=== PATIENT | male | born 1930 | race Caucasian/White ===

== ENCOUNTER 2017-04-15 11:13 | Inpatient (IN) | payer MEDICARE, OTHER ==
--- NOTE | 2017-04-15 11:29 | ED ---
General Adult HPI - General Chief complaint: Chest Pain Stated complaint: CHEST PAIN Time Seen by Provider: 04/15/17 11:23 Source: patient, RN notes reviewed, old records reviewed Mode of arrival: wheelchair Limitations: no limitations - History of Present Illness Initial comments: This is an 86-year-old male to the ER for evaluation. This patient presents to ER for evaluation of chest pain. Chest pain weakness not feeling well. Patient with a weakness and shortness of breath or patient history of heart disease including heart failure and history of heart attack. Patient has no fevers. No cough no congestion no travel history. Patient's chest pain will happen when he awoke this morning, it began to progress throughout the day, O shortness of breath with exertion, inability to activity. No cough congestion again or fever - Related Data Home Medications Medication Instructions Recorded Confirmed Aspirin 81 mg PO DAILY 04/12/14 04/15/17 Finasteride 5 mg PO DAILY 04/12/14 04/15/17 Metoprolol Tartrate [Lopressor] 25 mg PO TID 04/12/14 04/15/17 Pantoprazole Sodium 40 mg PO BID 04/12/14 04/15/17 Hydrochlorothiazide 25 mg PO DAILY 04/15/17 04/15/17 Metoclopramide [Reglan] 10 mg PO BID 04/15/17 04/15/17 Simvastatin [Zocor] 40 mg PO DAILY 04/15/17 04/15/17 Allergies Allergy/AdvReac Type Severity Reaction Status Date / Time No Known Allergies Allergy Verified 04/15/17 12:56 Review of Systems ROS Statement: Those systems with pertinent positive or pertinent negative responses have been documented in the HPI. ROS Other: All systems not noted in ROS Statement are negative. Past Medical History Past Medical History: Heart Failure, GERD/Reflux, Myocardial Infarction ([place]) Additional Past Medical History / Comment(s): arthritis Last Myocardial Infarction Date:: 1988 History of Any Multi-Drug Resistant Organisms: None Reported Past Surgical History: Back Surgery Additional Past Surgical History / Comment(s): pacemaker Past Anesthesia/Blood Transfusion Reactions: No Reported Reaction Past Psychological History: No Psychological Hx Reported Smoking Status: Former smoker Past Alcohol Use History: None Reported Past Drug Use History: None Reported General Exam Limitations: no limitations General appearance: alert, in no apparent distress Head exam: Present: atraumatic, normocephalic, normal inspection Eye exam: Present: normal appearance, PERRL, EOMI. Absent: scleral icterus, conjunctival injection, periorbital swelling ENT exam: Present: normal exam, mucous membranes moist Neck exam: Present: normal inspection. Absent: tenderness, meningismus, lymphadenopathy Respiratory exam: Present: normal lung sounds bilaterally. Absent: respiratory distress, wheezes, rales, rhonchi, stridor Cardiovascular Exam: Present: regular rate, normal rhythm, normal heart sounds. Absent: systolic murmur, diastolic murmur, rubs, gallop, clicks GI/Abdominal exam: Present: soft, normal bowel sounds. Absent: distended, tenderness, guarding, rebound, rigid Extremities exam: Present: normal inspection, full ROM, normal capillary refill. Absent: tenderness, pedal edema, joint swelling, calf tenderness Back exam: Present: normal inspection Neurological exam: Present: alert, oriented X3, CN II-XII intact Psychiatric exam: Present: normal affect, normal mood Skin exam: Present: warm, dry, intact, normal color. Absent: rash Course Vital Signs 04/15/17 04/15/17 04/15/17 11:14 11:55 12:25 Temperature 97.8 F 98.4 F 97.7 F Pulse Rate 66 74 53 L Respiratory 18 17 17 Rate Blood Pressure 116/74 118/63 112/58 O2 Sat by Pulse 93 L 96 98 Oximetry 04/15/17 13:53 Temperature 97.5 F L Pulse Rate 83 Respiratory 16 Rate Blood Pressure 112/60 O2 Sat by Pulse 96 Oximetry - Reevaluation(s) Reevaluation #1: 04/15/17 14:13 At this point patient remains of anterior chest pain EKG Findings - EKG Comments: EKG Findings:: EKG shows sinus rhythm rate of 80, ID [id number], QRS 86, QTc 459 Medical Decision Making - Medical Decision Making 80 formality ER for reevaluation of shortness of breath chest pain, symptoms began this morning worsening intensity. History of heart disease, patient's initial normal EKG, initial normal troponin, patient be admitted for cardiac observation, returning of troponin anticoagulation - Lab Data Result diagrams: 04/15/17 11:48 04/15/17 11:48 Lab Results 04/15/17 04/15/17 04/15/17 Range/Units 11:48 11:48 11:48 WBC 9.6 (3.8-10.6) k/uL RBC 4.77 (4.30-5.90) m/uL Hgb 14.9 (13.0-17.5) gm/dL Hct 43.6 (39.0-53.0) % MCV 91.4 (80.0-100.0) fL MCH 31.3 (25.0-35.0) pg MCHC 34.2 (31.0-37.0) g/dL RDW 14.0 (11.5-15.5) % Plt Count 287 (150-450) k/uL Neutrophils % 84 % Lymphocytes % 7 % Monocytes % 5 % Eosinophils % 2 % Basophils % 0 % Neutrophils # 8.0 H (1.3-7.7) k/uL Lymphocytes # 0.7 L (1.0-4.8) k/uL Monocytes # 0.5 (0-1.0) k/uL Eosinophils # 0.2 (0-0.7) k/uL Basophils # 0.0 (0-0.2) k/uL PT (9.0-12.0) sec INR (<1.1) APTT (22.0-30.0) sec D-Dimer (<0.60) mg/L FEU Sodium 134 L (137-145) mmol/L Potassium 4.3 (3.5-5.1) mmol/L Chloride 101 (98-107) mmol/L Carbon Dioxide 23 (22-30) mmol/L Anion Gap 10 mmol/L BUN 15 (9-20) mg/dL Creatinine 1.10 (0.66-1.25) mg/dL Est GFR (MDRD) Af Amer >60 (>60 ml/min/1.73 sqM) Est GFR (MDRD) Non-Af >60 (>60 ml/min/1.73 sqM) Glucose 104 H (74-99) mg/dL Calcium 9.0 (8.4-10.2) mg/dL Magnesium 1.9 (1.6-2.3) mg/dL Total Bilirubin 0.6 (0.2-1.3) mg/dL AST 28 (17-59) U/L ALT 30 (21-72) U/L Alkaline Phosphatase 55 (38-126) U/L Total Creatine Kinase 73 (55-170) U/L CK-MB (CK-2) 1.7 (0.0-2.4) ng/mL CK-MB (CK-2) Rel Index 2.3 Troponin I <0.012 (0.000-0.034) ng/mL NT-Pro-B Natriuret Pep pg/mL Total Protein 6.5 (6.3-8.2) g/dL Albumin 3.8 (3.5-5.0) g/dL Lipase 113 (23-300) U/L 04/15/17 04/15/17 Range/Units 11:48 11:48 WBC (3.8-10.6) k/uL RBC (4.30-5.90) m/uL Hgb (13.0-17.5) gm/dL Hct (39.0-53.0) % MCV (80.0-100.0) fL MCH (25.0-35.0) pg MCHC (31.0-37.0) g/dL RDW (11.5-15.5) % Plt Count (150-450) k/uL Neutrophils % % Lymphocytes % % Monocytes % % Eosinophils % % Basophils % % Neutrophils # (1.3-7.7) k/uL Lymphocytes # (1.0-4.8) k/uL Monocytes # (0-1.0) k/uL Eosinophils # (0-0.7) k/uL Basophils # (0-0.2) k/uL PT 10.4 (9.0-12.0) sec INR 1.0 (<1.1) APTT 22.4 (22.0-30.0) sec D-Dimer 0.60 H (<0.60) mg/L FEU Sodium (137-145) mmol/L Potassium (3.5-5.1) mmol/L Chloride (98-107) mmol/L Carbon Dioxide (22-30) mmol/L Anion Gap mmol/L BUN (9-20) mg/dL Creatinine (0.66-1.25) mg/dL Est GFR (MDRD) Af Amer (>60 ml/min/1.73 sqM) Est GFR (MDRD) Non-Af (>60 ml/min/1.73 sqM) Glucose (74-99) mg/dL Calcium (8.4-10.2) mg/dL Magnesium (1.6-2.3) mg/dL Total Bilirubin (0.2-1.3) mg/dL AST (17-59) U/L ALT (21-72) U/L Alkaline Phosphatase (38-126) U/L Total Creatine Kinase (55-170) U/L CK-MB (CK-2) (0.0-2.4) ng/mL CK-MB (CK-2) Rel Index Troponin I (0.000-0.034) ng/mL NT-Pro-B Natriuret Pep 556 pg/mL Total Protein (6.3-8.2) g/dL Albumin (3.5-5.0) g/dL Lipase (23-300) U/L - Radiology Data Radiology results: report reviewed (Chest x-ray negative for acute disease, CTA pending), image reviewed Critical Care Time Critical Care Time: Yes Total Critical Care Time: 31 Disposition Clinical Impression: Chest pain Disposition: ADMITTED IP TO THIS [facility] Condition: Undetermined Instructions: Chest Pain (ED) Referrals: Armin Mckeon MD [Primary Care Provider] - 1-2 days
[2017-04-15 12:00] LABS: Basophils % (A) 0 %; CHCM 35.2; Eosinophils # (A) 0.2 k/uL (0-0.7); Eosinophils % (A) 2 %; HCT 43.6 % (39.0-53.0); HDW 2.68; HGB 14.9 gm/dL (13.0-17.5); Luc # (Auto) 0.14; Luc % (Auto) 2; Lymphocytes # (A) 0.7 k/uL (1.0-4.8); Lymphocytes % (A) 7 %; MCH 31.3 pg (25.0-35.0); MCHC 34.2 g/dL (31.0-37.0); MCV 91.4 fL (80.0-100.0); Monocytes # (A) 0.5 k/uL (0-1.0); Monocytes % (A) 5 %; Neutrophils % (A) 84 %; RBC 4.77 m/uL (4.30-5.90); WBC 9.6 k/uL (3.8-10.6); WBC (Perox) 9.56
--- NOTE | 2017-04-15 12:08 | XR ---
EXAMINATION TYPE: XR chest 2V DATE OF EXAM: 04/15/2017 12:05 PM COMPARISON: Chest x-ray April 01, 2012. HISTORY: Shortness of breath and weakness today. TECHNIQUE: Frontal and lateral views of the chest are obtained. FINDINGS: There is chronic parenchymal change without suspicious air space opacity, pleural effusion , or pneumothorax seen. The cardiac silhouette size is mildly enlarged with dual lead pacemaker and atherosclerotic thoracic aorta. The osseous structures are intact. IMPRESSION: Chronic changes and mild cardiomegaly without acute pulmonary process. No significant ch agnes from prior study.
[2017-04-15 12:19] LABS: ALT 30 U/L (21-72); AST 28 U/L (17-59); Alkaline Phosphatase 55 U/L (38-126); Anion Gap 10 mmol/L; Blood Urea Nitrogen 15 mg/dL (9-20); Carbon Dioxide 23 mmol/L (22-30); Chloride 101 mmol/L (98-107); Glucose 104 mg/dL (74-99); Magnesium 1.9 mg/dL (1.6-2.3); Non-African American GFR(MDRD) >60 (>60 ml/min/1.73 sqM); Potassium 4.3 mmol/L (3.5-5.1); Sodium 134 mmol/L (137-145); Total Bilirubin 0.6 mg/dL (0.2-1.3); Total Protein 6.5 g/dL (6.3-8.2)
[2017-04-15 12:22] LABS: Creatine Kinase 73 U/L (55-170)
[2017-04-15 12:35] LABS: Creatine Kinase MB 1.7 ng/mL (0.0-2.4); Troponin I <0.012 ng/mL (0.000-0.034)
[2017-04-15 12:48] LABS: Partial Thromboplastin Time 22.4 sec (22.0-30.0); Prothrombin Time 10.4 sec (9.0-12.0)
[2017-04-15] MEDS ORDERED: RX INFO: IV CONTRAST WAS GIVEN 1 EACH MISC MISCELLANE PRN (13:00)
[2017-04-15] MEDS ORDERED: ASPIRIN 81 MG CHEW PO STA (14:11)
[2017-04-15] MEDS ORDERED: HEPARIN SODIUM,PORCINE 5,000 UNIT/ML 1 ML VIAL IV ONE (14:11)
[2017-04-15] MEDS ORDERED: HEPARIN SODIUM,PORCINE 5,000 UNIT/ML 1 ML VIAL IV PRN (14:11)
--- NOTE | 2017-04-15 14:17 | CT ---
CT CHEST FOR PULMONARY EMBOLISM. EXAMINATION TYPE: CT angio chest DATE OF EXAM: 04/15/2017 1:36 PM INDICATION: Chest pain shortness of breath CT DLP: 588 mGycm, Automated exposure control for dose reduction was used. CONTRAST: Patient injected with 100 mL of Omnipaque 350. COMPARISON: NONE TECHNIQUE: CT of the chest is performed on a spiral scan at 2 mm thick sections. Study is performed with intravenous contrast timed for evaluation for pulmonary embolism. This will limit additional po rtions of the evaluation. 3-D MIP images reconstructed by the technologist are reviewed on the compu ter in the coronal and sagittal planes. FINDINGS: No persistent filling defects are evident to suggest an acute pulmonary embolism. No mediastinal or hilar adenopathy enlarged by CT criteria is evident. The ascending aorta diameter at the level of the main pulmonary artery is 3.2 cm. The main pulmonary artery diameter at the bifur cation is 2.9 cm. Scattered calcified granuloma are present within the right lung. There is a 0.5 cm peripheral calcifi ed granuloma posterior portion superior segment right lower lobe. 0.4 cm calcification is within the posterior medial right upper lobe. Calcification is in the upper left upper lobe measuring 0.5 cm adj acent to the major fissure. Emphysematous changes are present. Small hiatal hernia is present. Limited CT section through the upper abdomen are unremarkable. IMPRESSIONS: 1. No acute pulmonary embolism.
[2017-04-15] MEDS: SODIUM CHLORIDE 0.9% 1,000 ML IV SCH (15:18)
[2017-04-15] MEDS: HEPARIN SODIUM,PORCINE/D5W PMX 25,000 UNIT in DEXTROSE/WATER 1 500ML.BAG IV SCH (15:22)
--- NOTE | 2017-04-15 16:03 | P.HPIM ---
History of Present Illness H&P Date: 04/15/17 Chief Complaint: Weakness, chest tightness, shortness of breath This is an 86-year-old male patient of Dr. 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 Patient states that he was feeling a little sweaty before he was getting out of bed this morning. He had breakfast and thought he would feel better but unfortunately he felt worse after that. He then developed a little tightness in his chest but denies any "chest pain." He was feeling clammy, short of breath and weak. He denies any nausea or vomiting. He denies any palpitations or loss of consciousness. Patient's son brought him into the hospital from home. Troponin was negative. Chest x-ray showed chronic changes and mild cardiomegaly without acute pulmonary process. D -dimer was mildly elevated at 0.6 and CTA of the chest showed no acute pulmonary embolism. Patient was started on heparin drip, full aspirin, nitroglycerin sublingual, consult with cardiology requested and patient placed on the observation unit. Serial troponins and lipid panel have been ordered. Review of Systems All systems: negative Constitutional: Reports fatigue, Reports weakness, Denies chills, Denies fever Eyes: denies blurred vision, denies pain Ears, nose, mouth and throat: Denies headache, Denies sore throat Cardiovascular: Reports chest pain, Reports decreased exercise tolerance, Reports dyspnea on exertion, Denies lightheadedness, Denies palpitations, Denies shortness of breath, Denies syncope Respiratory: Denies cough Gastrointestinal: Denies abdominal pain, Denies diarrhea, Denies nausea, Denies vomiting Musculoskeletal: Denies myalgias Integumentary: Denies pruritus, Denies rash Neurological: Denies numbness, Denies weakness Psychiatric: Denies anxiety, Denies depression Endocrine: Denies fatigue, Denies weight change Past Medical History Past Medical History: Heart Failure, GERD/Reflux, Hyperlipidemia, Hypertension, Myocardial Infarction ([place]), Osteoarthritis ([place]) Additional Past Medical History / Comment(s): Peripheral neuropathy, 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 Ashley Last Myocardial Infarction Date:: 1988 History of Any Multi-Drug Resistant Organisms: None Reported Past Surgical History: Back Surgery Additional Past Surgical History / Comment(s): pacemaker, cardiac stent done at [facility] in 1980s, lumbar surgery 3, bilateral cataract removal and intraocular lens implants, colonoscopies Past Anesthesia/Blood Transfusion Reactions: No Reported Reaction Past Psychological History: No Psychological Hx Reported Smoking Status: Never smoker Past Alcohol Use History: None Reported Additional Past Alcohol Use History / Comment(s): Patient denies any history of smoking. No medical marijuana, marijuana or street drug use. He drinks alcohol on a very rare basis. He lives at home with his Past Drug Use History: None Reported - Past Family History Father Additional Family Medical History / Comment(s): Father at age 87 with history of brain cancer, coronary artery disease, myocardial infarction, pacemaker. Mother Additional Family Medical History / Comment(s): Mother at age 56 in the accident when barn collapsed. Brother(s) Additional Family Medical History / Comment(s): Patient does not have any brothers or sisters. Daughter(s) Additional Family Medical History / Comment(s): Patient has 2 sons and 2 daughters. One daughter has coronary artery disease. Medications and Allergies Home Medications Medication Instructions Recorded Confirmed Type Aspirin 81 mg PO DAILY 04/12/14 04/15/17 History Finasteride 5 mg PO DAILY 04/12/14 04/15/17 History Metoprolol Tartrate [Lopressor] 25 mg PO TID 04/12/14 04/15/17 History Pantoprazole Sodium 40 mg PO BID 04/12/14 04/15/17 History Hydrochlorothiazide 25 mg PO DAILY 04/15/17 04/15/17 History Metoclopramide [Reglan] 10 mg PO BID 04/15/17 04/15/17 History Simvastatin [Zocor] 40 mg PO DAILY 04/15/17 04/15/17 History Allergies Allergy/AdvReac Type Severity Reaction Status Date / Time No Known Allergies Allergy Verified 04/15/17 12:56 Physical Exam Vitals: Vital Signs Temp Pulse Resp BP Pulse Ox 04/15/17 15:15 98.3 F 73 18 113/61 96 04/15/17 13:53 97.5 F L 83 16 112/60 96 04/15/17 12:25 97.7 F 53 L 17 112/58 98 04/15/17 11:55 98.4 F 74 17 118/63 96 04/15/17 11:14 97.8 F 66 18 116/74 93 L Intake and Output 04/15/17 04/15/17 04/15/17 06:59 14:59 22:59 Other: Weight 92.986 kg Patient Weight 04/16/17 06:59 Weight 92.986 kg Gen: This is an 86-year-old male. He is sitting up in the ER stretcher and appears to be in no acute distress. HEENT: Head is atraumatic, normocephalic. Pupils equal, round. Sclerae is anicteric. NECK: Supple. No JVD. No lymphadenopathy. No thyromegaly. LUNGS: Clear to auscultation. No wheezes or rhonchi. No intercostal retractions. HEART: Regular rate and rhythm. No murmur. ABDOMEN: Soft. Bowel sounds are present. No masses. No tenderness. EXTREMITIES: No pedal edema. No calf tenderness. Skin lesion to the bilateral ankles more so on the right which is been chronic and patient follows with Dr. Gauthier. NEUROLOGICAL: Patient is awake, alert and oriented x3. Cranial nerves 2 through 12 are grossly intact. Results CBC & Chem 7: 04/15/17 11:48 04/15/17 11:48 Labs: Abnormal Lab Results - Last 24 Hours (Table) 04/15/17 04/15/17 04/15/17 Range/Units 11:48 11:48 11:48 Neutrophils # 8.0 H (1.3-7.7) k/uL Lymphocytes # 0.7 L (1.0-4.8) k/uL D-Dimer 0.60 H (<0.60) mg/L FEU Sodium 134 L (137-145) mmol/L Glucose 104 H (74-99) mg/dL Thrombosis Risk Factor Assmnt - DVT/VTE Prophylaxis DVT/VTE Prophylaxis: Pharmacologic Prophylaxis ordered Assessment and Plan Plan: 1. Chest pressure with symptoms concerning for coronary artery disease with previous cardiac stent done in the 1980s and myocardial infarction. Patient is currently on heparin drip, aspirin, Lipitor. Cardiology consult. 2. Hypertension. Continue Lopressor 25 mg 3 times daily and hydrochlorothiazide 25 mg daily. 3. Hyperlipidemia. Continue simvastatin or Lipitor. 4. Benign prostatic hypertrophy. Continue finasteride 5 mg daily. 5. Gastroesophageal reflux disease and GI prophylaxis. Continue Protonix. 6. DVT prophylaxis, heparin. Patient will be placed on the observation unit. Discharge plan: Return home. Impression and plan of care have been directed as dictated by the signing physician. Anneliese Rawls nurse practitioner acting as scribe for signing physician.
[2017-04-15 18:22] LABS: Creatine Kinase MB 1.5 ng/mL (0.0-2.4); Troponin I 0.014 ng/mL (0.000-0.034)
[2017-04-15] MEDS: METOCLOPRAMIDE 10 MG TAB PO SCH (21:11)
[2017-04-15] MEDS: METOPROLOL TARTRATE 50 MG TAB PO SCH (21:11)
[2017-04-15] MEDS: PANTOPRAZOLE 40 MG TABLET PO SCH (21:12)
[2017-04-16 01:44] LABS: Creatine Kinase 56 U/L (55-170)
[2017-04-16 01:53] LABS: Creatine Kinase MB 1.4 ng/mL (0.0-2.4); Troponin I <0.012 ng/mL (0.000-0.034)
[2017-04-16] MEDS: SODIUM CHLORIDE 0.9% 1,000 ML IV SCH ×3 (05:13→18:57)
[2017-04-16 05:59] LABS: Mean Platelet Volume 6.6
[2017-04-16 06:17] LABS: Cholesterol 140 mg/dL (<200); HDL Cholesterol 45 mg/dL (40-60); Triglycerides 157 mg/dL (<150)
--- NOTE | 2017-04-16 08:54 | P.PN ---
Progress Note - Text Patient's telemetry strips are reviewed While in the hospital he had chest discomfort and at that time he had ventricular pacing versus six-time beats a minute and then at about 80 beats a minute his symptoms came back when he started ventricular pacing His chest discomfort at home was quite prolonged and will be ordered not to have made any enzymes for such a prolonged discomfort all across the chest No evidence of pulmonary embolism on CT of the chest The intermittency of ventricular pacing explains the ST segment abnormalities, cardiac memory Suggest Ventricular pacing to see if he reproduces symptoms
--- NOTE | 2017-04-16 09:20 | CONS ---
DATE OF CONSULTATION: Mr. Rodriguez is an 86-year-old male patient who presented with severe chest discomfort all across his chest associated with nausea and sweating. The pain lasted for quite a while and since it would not go away he came to the hospital. His first 12-lead ECG shows sinus rhythm with ST segment depression. Later, the pain finally subsided and subsequently came back once again while he was in the hospital. So far, his cardiac enzymes have been normal. He has known coronary artery disease and recently underwent a stress test about a month back with Dr. Solorzano. He recently saw Dr. Solorzano. He had his pacemaker interrogated. REVIEW OF SYSTEMS: No fever, chills or rigors. No cough or expectoration. No nausea, vomiting or diarrhea. No hematuria or dysuria. No strokes or seizures. No skin lesions or musculoskeletal complaints. Past history of coronary artery disease, coronary stenting in the 80s, permanent pacemaker for bradycardia, right carotid artery disease 80% and 70% stenosis on the left side, laryngeal cancer, status post chemotherapy and radiotherapy, dyslipidemia, peripheral neuropathy and hypertension. He also stated that he was dizzy ( ) bed and when he was getting his x-ray done and upon standing he was dizzy. Home medications include aspirin, finasteride, metoprolol, which he has not taken for last couple days. He ran out of this. Hydrochlorothiazide, Reglan and simvastatin. ALLERGIES: No known drug allergies. On examination, he is afebrile, 98.3 degrees Fahrenheit, pulse rate in the 70s. Blood pressure 113/61. On examination, heart sounds are normal. No murmurs, no gallops. Breath sounds are normal. No rhonchi. No crackles. No JVD. No thyromegaly. Abdomen is soft, nontender. Extremities are warm, no edema. The 12-lead ECG shows ST depression concave upwards ST-T changes. This could represent post pacing phenomena since he does have independent RV pacing that is documented on telemetry. He is not on digoxin. His cardiac enzymes are completely normal. His stress test recently was apparently normal, but I do not have the final report, I am awaiting this. PLAN: Continue medications. Continue statins. I will speak with Dr. Solorzano regarding further workup of chest pain.
[2017-04-16] MEDS: METOPROLOL TARTRATE 50 MG TAB PO SCH ×2 (09:56→19:59)
[2017-04-16] MEDS: METOCLOPRAMIDE 10 MG TAB PO SCH ×2 (09:57→20:00)
[2017-04-16] MEDS: PANTOPRAZOLE 40 MG TABLET PO SCH ×2 (09:57→18:17)
[2017-04-16] MEDS: FINASTERIDE 5 MG TAB PO SCH (09:57)
[2017-04-16] MEDS: HYDROCHLOROTHIAZIDE 25 MG TAB PO SCH (09:57)
[2017-04-16] MEDS: ATORVASTATIN 80 MG TAB PO SCH (09:57)
[2017-04-16] MEDS: ASPIRIN 325 MG TAB PO SCH (09:57)
--- NOTE | 2017-04-16 16:29 | P.PN ---
Subjective This is an 86-year-old male patient of Dr. 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 Patient states that he was feeling a little sweaty before he was getting out of bed this morning. He had breakfast and thought he would feel better but unfortunately he felt worse after that. He then developed a little tightness in his chest but denies any "chest pain." He was feeling clammy, short of breath and weak. He denies any nausea or vomiting. He denies any palpitations or loss of consciousness. Patient's son brought him into the hospital from home. Troponin was negative. Chest x-ray showed chronic changes and mild cardiomegaly without acute pulmonary process. D -dimer was mildly elevated at 0.6 and CTA of the chest showed no acute pulmonary embolism. Patient was started on heparin drip, full aspirin, nitroglycerin sublingual, consult with cardiology requested and patient placed on the observation unit. Serial troponins and lipid panel have been ordered. 04/16: Today the patient is feeling better, patient will be seen by [employer] agent for interrogation of his pacemaker as the patient to have some issues with the ventricular pacing, he would be maintained on heparin drip, as the patient may need to go for left heart catheterization next 24 hours. Objective - Vital Signs Vital signs: Vital Signs Temp 97.6 F 04/16/17 15:24 Pulse 62 04/16/17 15:24 Resp 16 04/16/17 15:24 BP 118/58 04/16/17 15:24 Pulse Ox 95 04/16/17 15:24 Intake & Output 04/15/17 04/16/17 04/16/17 18:59 06:59 18:59 Intake Total 346.074 Balance 346.074 Weight 93.2 kg Intake: Intake, IV Titration 346.074 Amount Heparin Sodium,Porcine/ 346.074 D5w Pmx 25,000 unit In Dextrose/Water 1 500ml. bag @ 10.755 UNITS/KG/HR 20 mls/hr IV .Q24H COUNTS INCLUDE 234 BEDS AT THE [facility] Rx #:[id number] Other: # Voids 2 - Constitutional General appearance: Present: average body habitus, no acute distress - EENT Eyes: Present: anicteric sclerae, EOMI, normal appearance. Absent: PERRLA, ptosis, scleral icterus ENT: Present: NA/AT, normal oropharynx. Absent: thrush, tonsillar exudates Ears: bilateral: normal - Neck Neck: Present: normal ROM. Absent: lymphadenopathy, rigidity, stridor, thyromegaly Carotids: bilateral: upstroke normal Thyroid: bilateral: normal size - Respiratory Respiratory: bilateral: diminished, negative: dullness, rales, rhonchi, wheezing , prolonged expiration, prolonged inspiration - Cardiovascular Rhythm: regular Heart sounds: normal: S1, S2 Abnormal Heart Sounds: Present: systolic murmur. Absent: rub (PPM), S3 Gallop, S4 Gallop, click - Gastrointestinal General gastrointestinal: Present: normal bowel sounds, soft. Absent: splenomegaly, tenderness, ventral hernia - Integumentary Integumentary: Present: normal, normal turgor - Neurologic Neurologic: Present: CNII-XII intact, focal deficits (Right foot drop) - Musculoskeletal Musculoskeletal: Present: generalized weakness - Psychiatric Psychiatric: Present: A&O x's 3, appropriate affect, intact judgment & insight - Labs CBC & Chem 7: 04/16/17 05:30 04/15/17 11:48 Labs: Abnormal Lab Results - Last 24 Hours (Table) 04/15/17 04/16/17 04/16/17 Range/Units 20:55 05:30 05:30 APTT 36.7 H 44.2 H (22.0-30.0) sec Triglycerides 157 H (<150) mg/dL 04/16/17 Range/Units 14:12 APTT 41.0 H (22.0-30.0) sec Triglycerides (<150) mg/dL Assessment and Plan Plan: Assessment and Plan Plan: 1. Chest pressure with symptoms concerning for coronary artery disease with previous cardiac stent done in the 1980s and myocardial infarction. Patient is currently on heparin drip, aspirin, Lipitor. Cardiology consult, there is a possible issues with ventricular pacing and subsequently the patient would be seen by [employer] personnel. He may still have to go for left heart catheterization if needed. 2. Hypertension. Continue Lopressor 25 mg 3 times daily and hydrochlorothiazide 25 mg daily. 3. Hyperlipidemia. Continue simvastatin or Lipitor. 4. Benign prostatic hypertrophy. Continue finasteride 5 mg daily. 5. Gastroesophageal reflux disease and GI prophylaxis. Continue Protonix. 6. DVT prophylaxis, heparin. 7. Home in 24 hours.
[2017-04-16] MEDS: HEPARIN SODIUM,PORCINE/D5W PMX 25,000 UNIT in DEXTROSE/WATER 1 500ML.BAG IV SCH (18:14)
[2017-04-17] MEDS: SODIUM CHLORIDE 0.9% 1,000 ML IV SCH ×3 (05:27→22:58)
[2017-04-17] MEDS: PANTOPRAZOLE 40 MG TABLET PO SCH ×2 (06:41→17:09)
[2017-04-17 07:00] LABS: Anion Gap 8 mmol/L; Blood Urea Nitrogen 16 mg/dL (9-20); Calcium 8.4 mg/dL (8.4-10.2); Carbon Dioxide 24 mmol/L (22-30); Chloride 99 mmol/L (98-107); Glucose 96 mg/dL (74-99); Non-African American GFR(MDRD) >60 (>60 ml/min/1.73 sqM); Sodium 131 mmol/L (137-145)
[2017-04-17 07:17] LABS: Mean Platelet Volume 6.6
[2017-04-17] MEDS: NITROGLYCERIN SL TABS 0.4 MG TAB SUBLINGUAL PRN ×2 (08:43→08:48)
[2017-04-17] MEDS: ATORVASTATIN 80 MG TAB PO SCH (09:03)
[2017-04-17] MEDS: METOPROLOL TARTRATE 50 MG TAB PO SCH ×2 (09:03→20:30)
[2017-04-17] MEDS: ASPIRIN 325 MG TAB PO SCH (09:03)
[2017-04-17] MEDS: FINASTERIDE 5 MG TAB PO SCH (09:03)
[2017-04-17] MEDS: METOCLOPRAMIDE 10 MG TAB PO SCH ×2 (09:03→20:30)
[2017-04-17] MEDS: HEPARIN SODIUM,PORCINE/D5W PMX 25,000 UNIT in DEXTROSE/WATER 1 500ML.BAG IV SCH (10:24)
[2017-04-17] MEDS: HYDROCHLOROTHIAZIDE 25 MG TAB PO SCH (10:24)
--- NOTE | 2017-04-17 13:19 | P.PN ---
Subjective This is an 86-year-old male patient of Dr. 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 Patient states that he was feeling a little sweaty before he was getting out of bed this morning. He had breakfast and thought he would feel better but unfortunately he felt worse after that. He then developed a little tightness in his chest but denies any "chest pain." He was feeling clammy, short of breath and weak. He denies any nausea or vomiting. He denies any palpitations or loss of consciousness. Patient's son brought him into the hospital from home. Troponin was negative. Chest x-ray showed chronic changes and mild cardiomegaly without acute pulmonary process. D -dimer was mildly elevated at 0.6 and CTA of the chest showed no acute pulmonary embolism. Patient was started on heparin drip, full aspirin, nitroglycerin sublingual, consult with cardiology requested and patient placed on the observation unit. Serial troponins and lipid panel have been ordered. 04/16: Today the patient is feeling better, patient will be seen by [employer] agent for interrogation of his pacemaker as the patient to have some issues with the ventricular pacing, he would be maintained on heparin drip, as the patient may need to go for left heart catheterization next 24 hours. 04/17: Patient states that he had an episode of chest tightness during the night which has continued this morning. He did receive 2 nitroglycerin and his blood pressure did drop. He is on heparin drip right now. Awaiting decision from cardiology regarding heart catheterization Objective - Vital Signs Vital signs: Vital Signs Temp 97.8 F 04/17/17 09:03 Pulse 73 04/17/17 09:03 Resp 18 04/17/17 09:03 BP 122/60 04/17/17 09:03 Pulse Ox 93 L 04/17/17 09:03 Intake & Output 04/16/17 04/17/17 04/17/17 18:59 06:59 18:59 Intake Total 153.926 240 Output Total 950 125 Balance 153.926 -710 -125 Weight 94.4 kg 93.1 kg Intake: IV 240 Sodium Chloride 0.9% 1, 240 000 ml @ 100 mls/hr IV . Q10H KIMMY Rx#:[id number] Intake, IV Titration 153.926 Amount Heparin Sodium,Porcine/ 153.926 D5w Pmx 25,000 unit In Dextrose/Water 1 500ml. bag @ 10.755 UNITS/KG/HR 20 mls/hr IV .Q24H KIM[facility] Rx #:[id number] Output: Urine 950 125 Other: Voiding Method Toilet Toilet Toilet Urinal Urinal Urinal # Voids 1 - Exam General appearance: Present: average body habitus, no acute distress - EENT Eyes: Present: anicteric sclerae, EOMI, normal appearance. Absent: PERRLA, ptosis, scleral icterus ENT: Present: NA/AT, normal oropharynx. Absent: thrush, tonsillar exudates Ears: bilateral: normal - Neck Neck: Present: normal ROM. Absent: lymphadenopathy, rigidity, stridor, thyromegaly Carotids: bilateral: upstroke normal Thyroid: bilateral: normal size - Respiratory Respiratory: bilateral: diminished, negative: dullness, rales, rhonchi, wheezing , prolonged expiration, prolonged inspiration - Cardiovascular Rhythm: regular Heart sounds: normal: S1, S2 Abnormal Heart Sounds: Present: systolic murmur. Absent: rub (PPM), S3 Gallop, S4 Gallop, click - Gastrointestinal General gastrointestinal: Present: normal bowel sounds, soft. Absent: splenomegaly, tenderness, ventral hernia - Integumentary Integumentary: Present: normal, normal turgor - Neurologic Neurologic: Present: CNII-XII intact, focal deficits (Right foot drop) - Musculoskeletal Musculoskeletal: Present: generalized weakness - Psychiatric Psychiatric: Present: A&O x's 3, appropriate affect, intact judgment & insight - Labs CBC & Chem 7: 04/17/17 06:06 04/17/17 06:06 Labs: Abnormal Lab Results - Last 24 Hours (Table) 04/16/17 04/17/17 04/17/17 Range/Units 14:12 00:03 06:06 APTT 41.0 H 66.0 H (22.0-30.0) sec Sodium 131 L (137-145) mmol/L 04/17/17 Range/Units 06:06 APTT 70.0 H (22.0-30.0) sec Sodium (137-145) mmol/L Assessment and Plan Plan: 1. Chest pressure with symptoms concerning for coronary artery disease with previous cardiac stent done in the 1980s and myocardial infarction. Patient is currently on heparin drip, aspirin, Lipitor. Cardiology consult. Pacemaker has been interrogated. Patient may require heart catheterization. 2. Hypertension. Continue Lopressor 25 mg 3 times daily and hydrochlorothiazide 25 mg daily. 3. Hyperlipidemia. Continue simvastatin or Lipitor. 4. Benign prostatic hypertrophy. Continue finasteride 5 mg daily. 5. Gastroesophageal reflux disease and GI prophylaxis. Continue Protonix. 6. DVT prophylaxis, heparin. Patient will be placed on the observation unit. Discharge plan: Return home. Impression and plan of care have been directed as dictated by the signing physician. Anneliese Rawls nurse practitioner acting as scribe for signing physician.
--- NOTE | 2017-04-17 14:59 | P.PN ---
Shivani Is a pleasant 86-year-old gentleman presented with severe chest discomfort all across to his associated with nausea and sweating. The pain lasted quite a while and therefore he came to the hospital. His first 12-lead EKG showed sinus rhythm with ST segment depression. His cardiac enzymes have been normal. He does have a history of known coronary artery disease and recently underwent a stress test that was negative. He is also recently had a pacemaker interrogation. He continued to complain of chest discomfort. Pacemaker was again interrogated to look for PMT that could possibly be causing symptoms. 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 Upon examination this morning, patient resting in bed complains of some difficulty breathing as well as chest tightness. This is unrelieved with nitroglycerin. However EKG does show further ST depression in leads V4-V6. Objective - Vital Signs Vital signs: Vital Signs Temp 97.8 F 04/17/17 09:03 Pulse 73 04/17/17 09:03 Resp 18 04/17/17 09:03 BP 108/57 04/17/17 10:26 Pulse Ox 93 L 04/17/17 09:03 Intake & Output 04/16/17 04/17/17 04/17/17 18:59 06:59 18:59 Intake Total 153.926 240 680 Output Total 950 275 Balance 153.926 -710 405 Weight 94.4 kg 93.1 kg Intake: IV 240 Sodium Chloride 0.9% 1, 240 000 ml @ 100 mls/hr IV . Q10H [facility] Rx#:[id number] Intake, IV Titration 153.926 500 Amount Heparin Sodium,Porcine/ 153.926 500 D5w Pmx 25,000 unit In Dextrose/Water 1 500ml. bag @ 10.755 UNITS/KG/HR 20 mls/hr IV .Q24H [facility] Rx #:[id number] Oral 180 Output: Urine 950 275 Other: Voiding Method Toilet Toilet Toilet Urinal Urinal Urinal # Voids 1 - Exam PHYSICAL EXAMINATION: HEENT: [Head is atraumatic, normocephalic. Pupils equal, round. Neck is supple. There is no elevated jugular venous pressure.] HEART EXAMINATION: [Heart sounds regular, S1 and S2 normal. No murmur or gallop heard.] CHEST EXAMINATION:[ Lungs are clear to auscultation and precussion. No chest wall tenderness is noted on palpation or with deep breathing.] ABDOMEN: [ Soft, nontender. Bowel sounds are heard. No organomegaly noted]. EXTREMITIES:[ 2+ peripheral pulses with no evidence of peripheral edema and no calf tenderness noted]. NEUROLOGIC [patient is awake, alert and oriented x3.] . - Labs CBC & Chem 7: 04/17/17 06:06 04/17/17 06:06 Labs: Abnormal Lab Results - Last 24 Hours (Table) 04/16/17 04/17/17 04/17/17 Range/Units 14:12 00:03 06:06 APTT 41.0 H 66.0 H (22.0-30.0) sec Sodium 131 L (137-145) mmol/L 04/17/17 Range/Units 06:06 APTT 70.0 H (22.0-30.0) sec Sodium (137-145) mmol/L Assessment and Plan Plan: Assessment and plan #1 chest discomfort with negative cardiac enzymes and EKG changes #2 presence of pacemaker #3 history of coronary artery disease with coronary stenting in the 1980s #4 bilateral carotid stenosis #5 laryngeal cancer status post chemotherapy and radiation therapy #6 peripheral neuropathy #7 dyslipidemia #8 hypertension From cardiology's perspective, pacemaker interrogation does not show episodes correlating to chest discomfort. Discussed with Dr. Solorzano. We will continue medications currently. Patient will likely require cardiac catheterization to be either done this admission or as an outpatient. Further recommendations to follow. CLASS B DRIVER note has been reviewed, I agree with a documented findings and plan of care. Patient was seen and examined.
[2017-04-17] MEDS ORDERED: ALPRAZolam 0.5 MG TAB PO PRN (17:37)
[2017-04-17] MEDS ORDERED: ALPRAZolam 0.25 MG TAB PO PRN (17:37)
[2017-04-17] MEDS ORDERED: SODIUM CHLORIDE 0.9% 1,000 ML in EMPTY BAG 1 BAG IV ONE (17:37)
[2017-04-18] MEDS: HEPARIN SODIUM,PORCINE/D5W PMX 25,000 UNIT in DEXTROSE/WATER 1 500ML.BAG IV SCH (05:05)
[2017-04-18] MEDS: PANTOPRAZOLE 40 MG TABLET PO SCH ×2 (06:44→17:11)
[2017-04-18 07:37] LABS: Mean Platelet Volume 6.5
[2017-04-18] MEDS: ATORVASTATIN 80 MG TAB PO SCH (07:50)
[2017-04-18] MEDS: METOCLOPRAMIDE 10 MG TAB PO SCH ×2 (07:50→19:44)
[2017-04-18] MEDS: FINASTERIDE 5 MG TAB PO SCH (07:51)
[2017-04-18] MEDS: ASPIRIN 325 MG TAB PO SCH (07:51)
[2017-04-18] MEDS: HYDROCHLOROTHIAZIDE 25 MG TAB PO SCH (07:51)
[2017-04-18] MEDS: METOPROLOL TARTRATE 50 MG TAB PO SCH ×2 (07:51→19:44)
[2017-04-18 09:28] LABS: Anion Gap 10 mmol/L; Blood Urea Nitrogen 13 mg/dL (9-20); Calcium 8.5 mg/dL (8.4-10.2); Carbon Dioxide 23 mmol/L (22-30); Chloride 100 mmol/L (98-107); Glucose 93 mg/dL (74-99); Non-African American GFR(MDRD) >60 (>60 ml/min/1.73 sqM); Potassium 4.4 mmol/L (3.5-5.1); Sodium 133 mmol/L (137-145)
--- NOTE | 2017-04-18 11:26 | PN ---
INTERVAL HISTORY: Patient continues to be hemodynamically stable. No major events reported by nursing staff. Patient's family at the bedside, who had multiple concerns and questions. All were addressed at the bedside. PHYSICAL EXAMINATION: VITAL SIGNS: Reviewed and stable. LUNGS: Clear to auscultation bilaterally. HEART: Normal S1, S2. ABDOMEN: Soft. No tenderness. Positive bowel sounds in all 4 quadrants. PSYCH: Alert and oriented x3. Following commands. LOWER EXTREMITIES: No edema. NEURO: No focal deficit. SKIN: No new rash. IMAGING AND LABS: PTT 68.2 this morning. Sodium 133; chemistry normal otherwise. ASSESSMENT AND PLAN: 1. Coronary artery disease with chest pain on this presentation. Patient will benefit from cardiac catheterization. Patient is still on heparin drip. Will continue aspirin and Lipitor. Dr. Thorpe evaluated the patient this morning and recommended cardiac catheterization, which will be arranged for tomorrow morning. Patient will be n.p.o. after midnight and scheduled for tomorrow 8:00 in the morning. 2. Status post pacemaker placement. Patient's pacemaker was interrogated and seems to be in good shape. 3. Hypertension, controlled. Will continue current regimen. 4. Hyperlipidemia. Will continue statin. 5. Gastroesophageal reflux disease. Will continue Protonix. 6. Debility. Will have PT, OT evaluate the patient prior to discharge.
[2017-04-18 11:49] LABS: Glucose,Whole Blood 123 mg/dL (75-99)
--- NOTE | 2017-04-18 12:58 | P.PN ---
Shivani Is a pleasant 86-year-old gentleman presented with severe chest discomfort all across to his associated with nausea and sweating. The pain lasted quite a while and therefore he came to the hospital. His first 12-lead EKG showed sinus rhythm with ST segment depression. His cardiac enzymes have been normal. He does have a history of known coronary artery disease and recently underwent a stress test that was negative. He is also recently had a pacemaker interrogation. He continued to complain of chest discomfort. Pacemaker was again interrogated to look for PMT that could possibly be causing symptoms. 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 Yesterday, the patient complained of some difficulty breathing as well as chest tightness. This was unrelieved with nitroglycerin. However EKG did show ST depression in leads V4-V6. Examination is 20, patient is feeling quite well. He is anticipating cardiac catheterization tomorrow morning at [address] Cole. Objective - Vital Signs Vital signs: Vital Signs Temp 97 F L 04/18/17 08:00 Pulse 63 04/18/17 11:47 Resp 19 04/18/17 11:47 BP 119/59 04/18/17 11:47 Pulse Ox 97 04/18/17 11:47 Intake & Output 04/17/17 04/18/17 04/18/17 18:59 06:59 18:59 Intake Total 860 680 295.729 Output Total 700 700 Balance 160 -20 295.729 Weight 93.3 kg Intake: IV 180 200 Sodium Chloride 0.9% 1, 180 200 000 ml @ 100 mls/hr IV . Q10H [facility] Rx#:[id number] Intake, IV Titration 500 680 95.729 Amount Heparin Sodium,Porcine/ 500 500 95.729 D5w Pmx 25,000 unit In Dextrose/Water 1 500ml. bag @ 10.755 UNITS/KG/HR 20 mls/hr IV .Q24H [facility] Rx #:[id number] Sodium Chloride 0.9% 1, 180 000 ml In Empty Bag 1 bag @ 1 ML/KG/HR 93.1 mls/hr IV .[id number] Rx#: [id number] Oral 180 Output: Urine 700 700 Other: Voiding Method Toilet Urinal Urinal # Voids 1 1 - Exam PHYSICAL EXAMINATION: HEENT: [Head is atraumatic, normocephalic. Pupils equal, round. Neck is supple. There is no elevated jugular venous pressure.] HEART EXAMINATION: [Heart sounds regular, S1 and S2 normal. No murmur or gallop heard.] CHEST EXAMINATION:[ Lungs are clear to auscultation and precussion. No chest wall tenderness is noted on palpation or with deep breathing.] ABDOMEN: [ Soft, nontender. Bowel sounds are heard. No organomegaly noted]. EXTREMITIES:[ 2+ peripheral pulses with no evidence of peripheral edema and no calf tenderness noted]. NEUROLOGIC [patient is awake, alert and oriented x3.] . - Labs CBC & Chem 7: 04/18/17 07:05 04/18/17 07:05 Labs: Abnormal Lab Results - Last 24 Hours (Table) 04/18/17 04/18/17 04/18/17 Range/Units 07:05 07:05 11:36 APTT 68.2 H (22.0-30.0) sec Sodium 133 L (137-145) mmol/L POC Glucose (mg/dL) 123 H (75-99) mg/dL Assessment and Plan Plan: Assessment and plan #1 chest discomfort with negative cardiac enzymes and EKG changes #2 presence of pacemaker #3 history of coronary artery disease with coronary stenting in the 1980s #4 bilateral carotid stenosis #5 laryngeal cancer status post chemotherapy and radiation therapy #6 peripheral neuropathy #7 dyslipidemia #8 hypertension From cardiology's perspective, patient will undergo cardiac catheterization by Dr. Cole tomorrow at 8 AM. Further recommendations to follow. LICENSING REGISTRATION EXAMINER note has been reviewed, I agree with a documented findings and plan of care. Patient was seen and examined.
[2017-04-18] MEDS: SODIUM CHLORIDE 0.9% 1,000 ML IV SCH ×3 (13:10→21:15)
[2017-04-18 16:43] LABS: Glucose,Whole Blood 93 mg/dL (75-99)
[2017-04-19 01:15] VITALS: TEMP 96.3
[2017-04-19] MEDS: ASPIRIN 325 MG TAB PO SCH (05:10)
[2017-04-19] MEDS: METOPROLOL TARTRATE 50 MG TAB PO SCH (05:10)
[2017-04-19] MEDS: ATORVASTATIN 80 MG TAB PO SCH (05:16)
[2017-04-19] MEDS ORDERED: MIDAZOLAM 2 MG/2 ML VIAL ONE (05:41)
[2017-04-19] MEDS ORDERED: LIDOCAINE 2% INJ 20 MG/ML (20 ML MDV) ONE (05:41)
[2017-04-19] MEDS ORDERED: VERAPAMIL 2.5 MG/ML 2 ML AMP ONE (05:42)
[2017-04-19] MEDS ORDERED: HEPARIN SODIUM 1,000 UNIT/ML VIAL ONE (05:42)
[2017-04-19] MEDS ORDERED: MIDAZOLAM 2 MG/2 ML VIAL IVP ONE (06:00)
[2017-04-19] MEDS ORDERED: LIDOCAINE 2% INJ 20 MG/ML SQ ONE ×2 (06:01→06:03)
[2017-04-19] MEDS: VERAPAMIL SYRINGE (5 MG/10 ML) INTRAARTER ONE ×2 (06:03→06:14)
[2017-04-19] MEDS: SODIUM CHLORIDE 0.9% 1,000 ML IV SCH (06:23)
[2017-04-19] MEDS ORDERED: IOHEXOL 350 MG/ML 125ML BOTTLE INJ ONE (06:24)
[2017-04-19] MEDS: PANTOPRAZOLE 40 MG TABLET PO SCH (07:06)
[2017-04-19 07:23] LABS: Anion Gap 4 mmol/L; Blood Urea Nitrogen 14 mg/dL (9-20); Calcium 8.7 mg/dL (8.4-10.2); Carbon Dioxide 27 mmol/L (22-30); Chloride 100 mmol/L (98-107); Glucose 89 mg/dL (74-99); Non-African American GFR(MDRD) 60 (>60 ml/min/1.73 sqM); Sodium 131 mmol/L (137-145)
[2017-04-19 07:35] LABS: Potassium 4.3 mmol/L (3.5-5.1)
[2017-04-19] MEDS: METOCLOPRAMIDE 10 MG TAB PO SCH (08:42)
[2017-04-19] MEDS: HYDROCHLOROTHIAZIDE 25 MG TAB PO SCH (08:42)
[2017-04-19] MEDS: FINASTERIDE 5 MG TAB PO SCH (08:42)
--- NOTE | 2017-04-19 08:54 | CC ---
DATE OF SERVICE: April 19, 2017. PERFORMING PHYSICIAN: Stuart Thorpe M.D., junior [employer] teacher. PROCEDURE PERFORMED: 1. Selective right and left coronary angiogram. 2. Left heart catheterization. INDICATION: This is a pleasant 86-year-old gentleman who sees Dr. Solorzano as an outpatient with a known history of coronary artery disease and prior stenting of the right coronary artery presented to the hospital with chest discomfort for which seems to be ongoing chest discomfort. Dr. Solorzano requested me to perform a heart catheterization on the gentleman because he was going out of town. APPROACH: Right radial artery. COMPLICATIONS: None. LEVEL OF SEDATION: Moderate with sedation length of 15 minutes. PROCEDURE DESCRIPTION: After obtaining an informed consent, the patient was brought to the cardiac prosthetic lab technician. The right radial artery was cannulated using micropuncture technique. The micropuncture wire passed easily, then I placed 6 Welsh sheath in the right radial artery. Subsequently, I gave the patient 2 mg of verapamil IA and 3000 units of heparin IV. After that, I did selective right and left coronary angiogram using JR4 and JL 3.5 catheters. After that I did the left heart catheterization using the JL 3.5 catheter, which flipped into the left ventricle then I did pullback. The procedure was completed without any complication. SELECTIVE CORONARY ANGIOGRAM: 1. The right coronary artery is a large-caliber vessel and it is a dominant vessel. The proximal RCA appeared to be angiographically normal. The mid RCA seems to be stented with intermediate in-stent restenosis appeared to be the same as before. The RCA distally appeared to have mild disease only and bifurcates into PDA and PLV branches; both appeared to be angiographically normal. 2. The left main appeared to have mild disease only. Bifurcates into the left circumflex and left anterior descending artery. 3. The left circumflex is a moderate caliber vessel and a nondominant vessel. It is calcified with mild disease only. 4. The left anterior descending artery: The LAD appeared to have mild disease only. It gives rise to a medium size diagonal branch, which has ostial lesion that appeared to be in the range of 70%. HEMODYNAMICS: The left ventricular end-diastolic pressure appeared to be 10 mmHg. No gradient was identified across the aortic valve. CONCLUSION: 1. 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 2. Severe disease involving the ostial first diagonal, which is a small to medium caliber diagonal. POSTPROCEDURE MANAGEMENT: 1. Maximize medical treatment. 2. Follow up with the patient.
--- NOTE | 2017-04-19 10:52 | DS ---
DATE OF ADMISSION: 04/16/2017 DATE OF DISCHARGE: ADMISSION DIAGNOSES: 1. Chest pressure with symptoms concerning for coronary artery disease with previous cardiac catheterization and stent placement. 2. Hypertension. 3. Hyperlipidemia. 4. Benign prostatic hypertrophy. 5. Gastroesophageal reflux disease. DISCHARGE DIAGNOSIS(ES): Coronary artery disease, stable cardiac catheterization compared to the prior one. Consulting physician Dr. Denis. Cardiac catheterization by Dr. Thorpe which was positive for diffuse coronary artery disease with the intermediate and in stent restenosis involving the mid RCA. Seems to be unchanged compared to before and recommendation was to maximize medical treatment. HOSPITAL COURSE: This is an 86-year-old male who presented to the hospital with chest pressure. Cardiac catheterization was planned by Dr. Thorpe and as above. Recommendation was for maximizing medical therapy. The patient felt stable from the medical standpoint. I discussed with Dr. Denis this morning to have patient follow up with Dr. Solorzano outpatient for optimizing his medical management and the family agreed to discharge patient today after giving time to finish the process for his cardiac catheterization site. Patient was discharged in stable condition.
[2017-04-19 11:33] VITALS: BP 109/55; PULSE 64; RESP 16
--- NOTE | 2017-05-04 08:15 | CONS ---
DATE OF CONSULTATION: CHIEF COMPLAINT: Syncope. This is an 86-year-old gentleman who comes to the hospital stating that he has had 4 episodes of syncope and he also complains of exertional shortness of breath. Patient states that he went to visit his who is in a long-term care facility and while he was being driven in the car, he apparently passed out became unresponsive transiently and then recovered on his own. While he was being wheeled from the car to visit his , he had 2 more episodes where he probably had transient loss of consciousness. There is no fall. No injury. No bladder, bowel incontinence and no focal neurological deficits. The patient has history of sick sinus syndrome and has a permanent pacemaker that has recently been tested including it is most recent admission on the march. He also had a cardiac catheterization at that time that showed patent stent within the right coronary artery and he was advised medical therapy. At [facility], he apparently had low blood pressure and when he first came here also he had blood pressures that were on the lower side and then we checked orthostatics this morning, he does not have orthostatic hypotension. Cardiac enzymes have been negative so far and I am going to check a d-dimer to complete his work-up. Hemoglobin is normal at 13.6. Past medical history is significant for coronary artery disease, sick sinus syndrome, status post permanent pacemaker, hypertension, and dyslipidemia. Medications include: 1. Hydrochlorothiazide 25 daily. 2. Aspirin. 3. Finasteride. 4. Lopressor 25 t.i.d. 5. Protonix. 6. Zocor. 7. Sublingual nitroglycerin. 8. Imdur. ALLERGIES: There are no known drug allergies. FAMILY HISTORY: Negative for premature coronary artery disease. SOCIAL HISTORY: Negative for current smoking, ETOH abuse or drug abuse. REVIEW OF SYSTEMS: HEENT: Unremarkable. CARDIAC: As described above. RESPIRATORY: Negative. GI: Negative. GENITOURINARY: Negative. Allergy/immunology: Negative. SKIN: Negative. MUSCULOSKELETAL: Significant for arthritis. PSYCHOSOCIAL: Negative. Dermatology: Negative. CONSTITUTIONAL: Negative. Oncological: Negative. The rest of the system review is not relevant. On exam, comfortable at rest. Vital signs are stable. There is no jugular venous distention. Carotid upstroke is normal. There is no bruit. Chest is clear to auscultation and percussion. Heart exam reveals first and second heart sounds. There is an ejection systolic murmur in the aortic area. ABDOMEN: Soft. Exam of the extremities did not reveal edema. Peripheral pulses are felt. Labs show that 2 sets of cardiac enzymes are negative. BUN is 20, creatinine is 1.2. Hemoglobin is 13.6. EKG shows a normally functioning pacemaker. Pacemaker had recently been evaluated. I reviewed his angiographic data. ASSESSMENT: Recurrent syncope could be due to orthostatic hypotension. For the moment his symptoms have resolved. I am going to stop the hydrochlorothiazide and start him on Florinef 0.1 mg daily. We can ambulate him and see how he does. If he is feeling well, he can be discharged home and have an outpatient follow-up with Dr. Solorzano. We will also check a d-dimer to complete his work-up.
== END 2017-04-19 12:40 | disposition home or self-care (01) | DRG 287 ==
LOC: EC 11:13 → 3OBS 14:11 → OBSVTOIN 04-16 15:47 → 6SEL 04-16 18:46
PROVIDERS: ADMIT Internal Medicine; ATTEND Internal Medicine
PROC: 4B02XSZ Measurement of Cardiac Pacemaker, External Approach (ICD-10-PCS; 2017-04-16)
PROC: B2111ZZ Fluoroscopy of Multiple Coronary Arteries using Low Osmolar Contrast (ICD-10-PCS; 2017-04-19)
PROC: B2151ZZ Fluoroscopy of Left Heart using Low Osmolar Contrast (ICD-10-PCS; 2017-04-19)
PROC: 4A023N7 Measurement of Cardiac Sampling and Pressure, Left Heart, Percutaneous Approach (ICD-10-PCS; principal; 2017-04-19 05:29)
DX: I25.10 Atherosclerotic heart disease of native coronary artery without angina pectoris (principal); I47.2 Ventricular tachycardia; I50.9 Heart failure, unspecified; R00.1 Bradycardia, unspecified; I11.0 Hypertensive heart disease with heart failure; G62.9 Polyneuropathy, unspecified; I47.1 Supraventricular tachycardia; T82.855A Stenosis of coronary artery stent, initial encounter; E78.5 Hyperlipidemia, unspecified; I25.2 Old myocardial infarction; I65.23 Occlusion and stenosis of bilateral carotid arteries; R53.1 Weakness; R11.0 Nausea; R06.02 Shortness of breath; R94.31 Abnormal electrocardiogram [ECG] [EKG]; R42 Dizziness and giddiness; T50.2X6A Underdosing of carbonic-anhydrase inhibitors, benzothiadiazides and other diuretics, initial encounter; T45.0X6A Underdosing of antiallergic and antiemetic drugs, initial encounter; T46.6X6A Underdosing of antihyperlipidemic and antiarteriosclerotic drugs, initial encounter; K21.9 Gastro-esophageal reflux disease without esophagitis; N40.0 Benign prostatic hyperplasia without lower urinary tract symptoms; M19.90 Unspecified osteoarthritis, unspecified site; Z79.82 Long term (current) use of aspirin; Z79.899 Other long term (current) drug therapy; Z95.0 Presence of cardiac pacemaker; Z82.49 Family history of ischemic heart disease and other diseases of the circulatory system; Z85.21 Personal history of malignant neoplasm of larynx; Z92.3 Personal history of irradiation; Z92.21 Personal history of antineoplastic chemotherapy; Z91.14 Patient's other noncompliance with medication regimen; Z98.42 Cataract extraction status, left eye; Z98.41 Cataract extraction status, right eye; Z96.1 Presence of intraocular lens; Z80.8 Family history of malignant neoplasm of other organs or systems; Z87.2 Personal history of diseases of the skin and subcutaneous tissue
CPT/HCPCS: 36415; 71020; 71275; 80048; 80053; 80061; 82550; 82553; 83690; 83735; 83880; 84484; 85025; 85049; 85379; 85610; 85730; 93005; 93458; 96376; 99291

== ENCOUNTER 2017-05-03 15:24 | Observation (INO) | payer MEDICARE ==
--- NOTE | 2017-05-03 16:37 | ED ---
General Adult HPI - General Source: patient, RN notes reviewed Mode of arrival: wheelchair Limitations: no limitations <Thomas Alonso - Last Filed: 05/03/17 16:33> <Eliezer Israel - Last Filed: 05/03/17 18:49> - General Chief complaint: Chest Pain Stated complaint: chest pain Time Seen by Provider: 05/03/17 15:35 - History of Present Illness Initial comments: This is an 86-year-old male who presents to the emergency department with stable angina history. Patient was recently catheterized in March and they found no new lesions in his heart. Patient states today about 2 hours prior to arrival he started feeling very dizzy and nauseated family states he passed out 3 different times. Family states that he started a new nitroglycerin medicine in the morning and that started today and they don't know what that was. Patient also took 2 nitroglycerin while he was having the dizziness and after that he passed out at least 2 more times. They are not sure whether or not he had the nitroglycerin when he passed out the first time. Patient states he also felt generalized weakness which is significantly improved at this point. Patient states currently that is his only symptom. Patient denies ever having any chest pain today he's had for a little while he had a little chest tightness. Patient denies any difficulty breathing or shortness of breath. Patient denies any fever or chills. Patient denies any abdominal pain patient denies any vomiting or diarrhea. (Thomas Alonso) - Related Data Home Medications Medication Instructions Recorded Confirmed Aspirin 81 mg PO DAILY 04/12/14 05/03/17 Finasteride 5 mg PO DAILY 04/12/14 05/03/17 Metoprolol Tartrate [Lopressor] 25 mg PO TID 04/12/14 05/03/17 Pantoprazole Sodium 40 mg PO BID 04/12/14 05/03/17 Hydrochlorothiazide 25 mg PO DAILY 04/15/17 05/03/17 Metoclopramide [Reglan] 10 mg PO BID 04/15/17 05/03/17 Simvastatin [Zocor] 40 mg PO DAILY 04/15/17 05/03/17 Isosorbide Mononitrate ER [Imdur] 30 mg PO DAILY 05/03/17 05/03/17 Nitroglycerin Sl Tabs [Nitrostat] 0.4 mg SUBLINGUAL Q5M PRN 05/03/17 05/03/17 Allergies Allergy/AdvReac Type Severity Reaction Status Date / Time No Known Allergies Allergy Verified 05/03/17 16:35 Review of Systems ROS Other: All systems not noted in ROS Statement are negative. <Thomas Alonso - Last Filed: 05/03/17 16:33> ROS Other: All systems not noted in ROS Statement are negative. <Eliezer Israel - Last Filed: 05/03/17 18:49> ROS Statement: Those systems with pertinent positive or pertinent negative responses have been documented in the HPI. 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 Ashley Last Myocardial Infarction Date:: 1988 History of Any Multi-Drug Resistant Organisms: None Reported Past Surgical History: Back Surgery Additional Past Surgical History / Comment(s): pacemaker, cardiac stent done at [facility] in , lumbar surgery 3, bilateral cataract removal and intraocular lens implants, colonoscopies Past Anesthesia/Blood Transfusion Reactions: No Reported Reaction Additional Past Anesthesia/Blood Transfusion Reaction / Comment(s): pt is but lives in assisted living. pt is independant no assistive devices.lives alone in a single level home no steps. no outside services recieved. no medical equipment . no past service. 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 Date of Last Stent Placement:: 1991 Past Psychological History: No Psychological Hx Reported Smoking Status: Never smoker Past Alcohol Use History: None Reported Additional Past Alcohol Use History / Comment(s): Patient denies any history of smoking. No medical marijuana, marijuana or street drug use. He drinks alcohol on a very rare basis. He lives at home with his Past Drug Use History: None Reported - Past Family History Mother Family Medical History: No Reported History Additional Family Medical History / Comment(s): was killed in accident Father Additional Family Medical History / Comment(s): "heart problems" and brain cancer Brother(s) Additional Family Medical History / Comment(s): Patient does not have any brothers or sisters. Daughter(s) Additional Family Medical History / Comment(s): Patient has 2 sons and 2 daughters. One daughter has coronary artery disease. <Thomas Alonso - Last Filed: 05/03/17 16:33> General Exam Limitations: no limitations <Thomas Alonso - Last Filed: 05/03/17 16:33> <Eliezer Israel - Last Filed: 05/03/17 18:49> - General Exam Comments Initial Comments: GENERAL: Patient is well-developed and well-nourished. Patient is nontoxic and well- hydrated and is in no acute distress. ENT: Neck is soft and supple. No significant lymphadenopathy is noted. Oropharynx is clear. Moist mucous membranes. Neck has full range of motion without eliciting any pain. EYES: The sclera were anicteric and conjunctiva were pink and moist. Extraocular movements were intact and pupils were equal round and reactive to light. Eyelids were unremarkable. PULMONARY: Unlabored respirations. Good breath sounds bilaterally. No audible rales rhonchi or wheezing was noted. CARDIOVASCULAR: There is a regular rate and rhythm without any murmurs gallops or rubs. ABDOMEN: Soft and nontender with normal bowel sounds. No palpable organomegaly was noted. There is no palpable pulsatile mass. SKIN: Skin is clear with no lesions or rashes and otherwise unremarkable. NEUROLOGIC: Patient is alert and oriented x3. Cranial nerves II through XII are grossly intact. Motor and sensory are also intact. Normal speech, volume and content. Symmetrical smile. MUSCULOSKELETAL: Normal extremities with adequate strength and full range of motion. No lower extremity swelling or edema. No calf tenderness. LYMPHATICS: No significant lymphadenopathy is noted PSYCHIATRIC: Normal psychiatric evaluation. Normal interpersonal interactions appears functionally intact in deals appropriately with others. No signs of depression. No signs of anxiety. (Thomas Alonso) Course <Thomas Alonso - Last Filed: 05/03/17 16:33> <Eliezer Israel - Last Filed: 05/03/17 18:49> Vital Signs 05/03/17 05/03/17 05/03/17 15:29 16:05 17:02 Temperature 97.8 F Pulse Rate 64 60 Pulse Rate [ 63 Sitting] Pulse Rate [ 60 Standing] Pulse Rate [ 69 Supine] Respiratory 20 18 Rate Blood Pressure 83/51 104/57 Blood Pressure 108/55 [Sitting] Blood Pressure 97/51 [Standing] Blood Pressure 109/57 [Supine] O2 Sat by Pulse 96 95 Oximetry - Reevaluation(s) Reevaluation #1: 05/03/17 18:48 The patient was endorsed to me at shift change pending lab evaluation of her labs look essentially unremarkable patient still does not feel back to normal he did have evidence of chest pain apparently he also had 3 episodes of syncope. I did discuss findings with him and his family and with Dr. Bolivar patient be admitted for reevaluation. (Eliezer Israel) Medical Decision Making <Thomas Alonso - Last Filed: 05/03/17 16:33> - Lab Data Result diagrams: 05/03/17 15:57 05/03/17 15:57 <Eliezer Israel - Last Filed: 05/03/17 18:49> - Medical Decision Making EKG shows a paced rhythm at 64 bpm NM interval is 358 QRSs 138 QT interval [address] Israel will be taking over the care of this patient at 5 PM (Thomas Alonso) - Lab Data Lab Results 05/03/17 05/03/17 05/03/17 Range/Units 15:57 15:57 15:57 WBC 13.2 H (3.8-10.6) k/uL RBC 4.37 (4.30-5.90) m/uL Hgb 13.6 (13.0-17.5) gm/dL Hct 40.8 (39.0-53.0) % MCV 93.3 (80.0-100.0) fL MCH 31.1 (25.0-35.0) pg MCHC 33.3 (31.0-37.0) g/dL RDW 14.2 (11.5-15.5) % Plt Count 261 (150-450) k/uL Neutrophils % 88 % Lymphocytes % 5 % Monocytes % 4 % Eosinophils % 1 % Basophils % 1 % Neutrophils # 11.6 H (1.3-7.7) k/uL Lymphocytes # 0.7 L (1.0-4.8) k/uL Monocytes # 0.5 (0-1.0) k/uL Eosinophils # 0.1 (0-0.7) k/uL Basophils # 0.1 (0-0.2) k/uL PT (9.0-12.0) sec INR (<1.1) APTT (22.0-30.0) sec Sodium 131 L (137-145) mmol/L Potassium 4.7 (3.5-5.1) mmol/L Chloride 97 L (98-107) mmol/L Carbon Dioxide 25 (22-30) mmol/L Anion Gap 9 mmol/L BUN 20 (9-20) mg/dL Creatinine 1.22 (0.66-1.25) mg/dL Est GFR (MDRD) Af Amer >60 (>60 ml/min/1.73 sqM) Est GFR (MDRD) Non-Af 57 (>60 ml/min/1.73 sqM) Glucose 113 H (74-99) mg/dL Calcium 9.1 (8.4-10.2) mg/dL Magnesium 1.9 (1.6-2.3) mg/dL Total Bilirubin 1.0 (0.2-1.3) mg/dL AST 40 (17-59) U/L ALT 28 (21-72) U/L Alkaline Phosphatase 47 (38-126) U/L Total Creatine Kinase 62 (55-170) U/L CK-MB (CK-2) 1.0 (0.0-2.4) ng/mL CK-MB (CK-2) Rel Index 1.6 Troponin I <0.012 (0.000-0.034) ng/mL Total Protein 6.7 (6.3-8.2) g/dL Albumin 3.9 (3.5-5.0) g/dL 05/03/17 Range/Units 15:57 WBC (3.8-10.6) k/uL RBC (4.30-5.90) m/uL Hgb (13.0-17.5) gm/dL Hct (39.0-53.0) % MCV (80.0-100.0) fL MCH (25.0-35.0) pg MCHC (31.0-37.0) g/dL RDW (11.5-15.5) % Plt Count (150-450) k/uL Neutrophils % % Lymphocytes % % Monocytes % % Eosinophils % % Basophils % % Neutrophils # (1.3-7.7) k/uL Lymphocytes # (1.0-4.8) k/uL Monocytes # (0-1.0) k/uL Eosinophils # (0-0.7) k/uL Basophils # (0-0.2) k/uL PT 10.8 (9.0-12.0) sec INR 1.1 (<1.1) APTT 22.0 (22.0-30.0) sec Sodium (137-145) mmol/L Potassium (3.5-5.1) mmol/L Chloride (98-107) mmol/L Carbon Dioxide (22-30) mmol/L Anion Gap mmol/L BUN (9-20) mg/dL Creatinine (0.66-1.25) mg/dL Est GFR (MDRD) Af Amer (>60 ml/min/1.73 sqM) Est GFR (MDRD) Non-Af (>60 ml/min/1.73 sqM) Glucose (74-99) mg/dL Calcium (8.4-10.2) mg/dL Magnesium (1.6-2.3) mg/dL Total Bilirubin (0.2-1.3) mg/dL AST (17-59) U/L ALT (21-72) U/L Alkaline Phosphatase (38-126) U/L Total Creatine Kinase (55-170) U/L CK-MB (CK-2) (0.0-2.4) ng/mL CK-MB (CK-2) Rel Index Troponin I (0.000-0.034) ng/mL Total Protein (6.3-8.2) g/dL Albumin (3.5-5.0) g/dL Disposition <Thomas Alonso - Last Filed: 05/03/17 16:33> <Eliezer Israel - Last Filed: 05/03/17 18:49> Clinical Impression: Syncope Disposition: ADMITTED IP TO THIS HOSP Condition: Stable Referrals: Armin Mckeon MD [Primary Care Provider] - 1-2 days
[2017-05-03 16:49] LABS: Basophils # (A) 0.1 k/uL (0-0.2); Basophils % (A) 1 %; CH 32.1; CHCM 34.6; Eosinophils # (A) 0.1 k/uL (0-0.7); Eosinophils % (A) 1 %; HCT 40.8 % (39.0-53.0); HGB 13.6 gm/dL (13.0-17.5); Luc # (Auto) 0.16; Luc % (Auto) 1; Lymphocytes # (A) 0.7 k/uL (1.0-4.8); Lymphocytes % (A) 5 %; MCH 31.1 pg (25.0-35.0); MCHC 33.3 g/dL (31.0-37.0); MCV 93.3 fL (80.0-100.0); Mean Platelet Volume 7.9; Monocytes # (A) 0.5 k/uL (0-1.0); Monocytes % (A) 4 %; Neutrophils # (A) 11.6 k/uL (1.3-7.7); Neutrophils % (A) 88 %; RBC 4.37 m/uL (4.30-5.90); RDW 14.2 % (11.5-15.5); WBC 13.2 k/uL (3.8-10.6); WBC (Perox) 12.89
--- NOTE | 2017-05-03 16:56 | XR ---
EXAMINATION TYPE: XR chest 2V DATE OF EXAM: 05/03/2017 4:53 PM COMPARISON: 04/15/2017 HISTORY: Chest pain TECHNIQUE: Frontal and lateral views of the chest are obtained. FINDINGS: There is no heart failure nor confluent pneumonic infiltrate. Heart size is normal. There is left axillary pacemaker with the lead tips in the right ventricle. There are chest leads. There ar e no hilar masses. There is no pleural effusion. IMPRESSION: No active cardiopulmonary disease. No change.
[2017-05-03 16:58] LABS: INR 1.1 (<1.1); Prothrombin Time 10.8 sec (9.0-12.0)
[2017-05-03 17:00] LABS: ALT 28 U/L (21-72); AST 40 U/L (17-59); Alkaline Phosphatase 47 U/L (38-126); Anion Gap 9 mmol/L; Blood Urea Nitrogen 20 mg/dL (9-20); Calcium 9.1 mg/dL (8.4-10.2); Carbon Dioxide 25 mmol/L (22-30); Chloride 97 mmol/L (98-107); Glucose 113 mg/dL (74-99); Magnesium 1.9 mg/dL (1.6-2.3); Non-African American GFR(MDRD) 57 (>60 ml/min/1.73 sqM); Sodium 131 mmol/L (137-145); Total Protein 6.7 g/dL (6.3-8.2)
[2017-05-03 17:05] LABS: Potassium 4.7 mmol/L (3.5-5.1)
[2017-05-03 17:15] LABS: Creatine Kinase 62 U/L (55-170)
[2017-05-03 17:28] LABS: Troponin I <0.012 ng/mL (0.000-0.034)
[2017-05-03] MEDS ORDERED: NALOXONE 0.4 MG/ML 1 ML VIAL IV PRN (18:51)
[2017-05-03] MEDS ORDERED: NITROGLYCERIN SL TABS 0.4 MG TAB SUBLINGUAL PRN (18:52)
[2017-05-03] MEDS ORDERED: SODIUM CHLORIDE 0.9% 1,000 ML IV SCH (19:00)
[2017-05-03 20:15] VITALS: BMI 28.5
[2017-05-03] MEDS: METOCLOPRAMIDE 10 MG TAB PO SCH (21:47)
[2017-05-03] MEDS: METOPROLOL TARTRATE 25 MG TAB PO SCH (21:48)
[2017-05-03] MEDS: PANTOPRAZOLE 40 MG TABLET PO SCH (21:48)
[2017-05-04 00:18] LABS: Creatine Kinase 50 U/L (55-170)
[2017-05-04 00:31] LABS: Troponin I <0.012 ng/mL (0.000-0.034)
[2017-05-04 03:42] VITALS: RESP 16
[2017-05-04] MEDS: PANTOPRAZOLE 40 MG TABLET PO SCH (08:37)
[2017-05-04] MEDS: METOCLOPRAMIDE 10 MG TAB PO SCH (08:37)
[2017-05-04] MEDS: METOPROLOL TARTRATE 25 MG TAB PO SCH (08:37)
[2017-05-04 08:48] LABS: Creatine Kinase 49 U/L (55-170)
[2017-05-04 09:00] LABS: Creatine Kinase MB 1.1 ng/mL (0.0-2.4); Troponin I <0.012 ng/mL (0.000-0.034)
[2017-05-04] MEDS ORDERED: HYDROCHLOROTHIAZIDE 25 MG TAB PO SCH (09:00)
[2017-05-04] MEDS ORDERED: FINASTERIDE 5 MG TAB PO SCH (09:00)
[2017-05-04] MEDS ORDERED: FLUDROCORTISONE 0.1 MG TAB PO SCH (09:00)
[2017-05-04] MEDS ORDERED: ISOSORBIDE MONONITRATE ER 30 MG TAB.ER.24H PO SCH (09:00)
[2017-05-04] MEDS ORDERED: ASPIRIN 81 MG CHEW PO SCH (09:00)
[2017-05-04] MEDS ORDERED: ATORVASTATIN 20 MG TAB PO SCH (09:00)
[2017-05-04 11:45] VITALS: BP 111/46; TEMP 98
[2017-05-04 12:25] VITALS: PULSE 74
--- NOTE | 2017-05-04 15:53 | P.HPIM ---
History of Present Illness H&P Date: 05/04/17 Chief Complaint: Syncope episodes HISTORY AND PHYSICAL AND DISCHARGE SUMMARY: This is an 86-year-old male patient of Dr. Armin Dawkins with a past medical history of coronary artery disease status post stent placement in the , pacemaker for bradycardia, right carotid artery disease of 80% and left of 70% following with Dr. 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 He had a recent hospitalization April 16 are April 19 at which time he had episode of sweatiness when he was getting out of bed and tightness in his chest for which troponins were negative and he was followed by cardiology. Chest x-ray showed chronic changes and mild cardiomegaly without acute pulmonary process. D-dimer was mildly elevated at 0.6 and CTA of the chest showed no acute pulmonary embolism. He was seen by [facility] for interrogation of his pacemaker. He underwent a heart catheterization with Dr. 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 Severe disease involving the ostial first diagonal which is small to medium caliber diagonal. Recommendations were for maximizing medical treatment. Patient now presents to the hospital after multiple syncopal episodes while sitting. His son was driving him about 11 miles to a restaurant and he apparently had [address] They didn't get a wheelchair out to help him into the restaurant he apparently had another 2 episodes. These happen momentarily and he also feels a tight band around his chest. He took 2 nitro while sitting. He denies having any cough. He had his last bowel movement yesterday. No blood or tarry stools. They apparently checked his blood pressure which was initially 62/40 followed by 80/60. He denies any seizure or shaking episodes. He does state that his chart was completely saturated with sweat. His blood sugar was 108. Patient has been placed on the observation unit and seen in consultation by cardiology with recommendations to start Florinef. We will also plan to discontinue hydrochlorothiazide and decrease indoor in half. Patient does give history that he took his first dose of Imdur yesterday morning. Patient's vital signs have been stable. Orthostatics done in the emergency center and on the observation unit have all been negative. We'll plan to ambulate the patient and if no further symptoms, patient will be discharged home with the changes that include Florinef started, hydrochlorothiazide stopped, Imdur decreased by half. Review of Systems All systems: negative Constitutional: Reports sweats, Denies chills, Denies fever Eyes: denies blurred vision, denies pain Ears, nose, mouth and throat: Denies headache, Denies sore throat Cardiovascular: Reports chest pain, Reports syncope, Denies shortness of breath Respiratory: Denies cough Gastrointestinal: Denies abdominal pain, Denies diarrhea, Denies nausea, Denies vomiting Musculoskeletal: Denies myalgias Integumentary: Denies pruritus, Denies rash Neurological: Denies numbness, Denies weakness Psychiatric: Denies anxiety, Denies depression Endocrine: Denies fatigue, Denies weight change Past Medical History Past Medical History: Heart Failure, GERD/Reflux, Hyperlipidemia, Hypertension, Myocardial Infarction ([place]), Osteoarthritis (OA) Additional Past Medical History / Comment(s): Peripheral neuropathy, 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 Ashley Last Myocardial Infarction Date:: 1988 History of Any Multi-Drug Resistant Organisms: None Reported Past Surgical History: Back Surgery Additional Past Surgical History / Comment(s): pacemaker, cardiac stent done at [facility] in , lumbar surgery 3, bilateral cataract removal and intraocular lens implants, colonoscopies Past Anesthesia/Blood Transfusion Reactions: No Reported Reaction Additional Past Anesthesia/Blood Transfusion Reaction / Comment(s): pt is but lives in assisted living. pt is independant no assistive devices.lives alone in a single level home no steps. no outside services recieved. no medical equipment . no past service. 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 Date of Last Stent Placement:: 1991 Past Psychological History: No Psychological Hx Reported Smoking Status: Former smoker Past Alcohol Use History: None Reported Additional Past Alcohol Use History / Comment(s): Patient denies any history of smoking. No medical marijuana, marijuana or street drug use. He drinks alcohol on a very rare basis. He lives at home with his Past Drug Use History: None Reported - Past Family History Mother Family Medical History: No Reported History Additional Family Medical History / Comment(s): was killed in accident Father Additional Family Medical History / Comment(s): "heart problems" and brain cancer Brother(s) Additional Family Medical History / Comment(s): Patient does not have any brothers or sisters. Daughter(s) Additional Family Medical History / Comment(s): Patient has 2 sons and 2 daughters. One daughter has coronary artery disease. Medications and Allergies Home Medications Medication Instructions Recorded Confirmed Type Aspirin 81 mg PO DAILY 04/12/14 05/03/17 History Finasteride 5 mg PO DAILY 04/12/14 05/03/17 History Metoprolol Tartrate [Lopressor] 25 mg PO TID 04/12/14 05/03/17 History Pantoprazole Sodium 40 mg PO BID 04/12/14 05/03/17 History Metoclopramide [Reglan] 10 mg PO BID 04/15/17 05/03/17 History Simvastatin [Zocor] 40 mg PO DAILY 04/15/17 05/03/17 History Nitroglycerin Sl Tabs [Nitrostat] 0.4 mg SUBLINGUAL Q5M PRN 05/03/17 05/03/17 History Allergies Allergy/AdvReac Type Severity Reaction Status Date / Time No Known Allergies Allergy Verified 05/03/17 20:16 Physical Exam Vitals: Vital Signs Temp Pulse Pulse Pulse Pulse Pulse Resp 05/04/17 12:00 60 70 71 74 16 05/04/17 11:45 98.0 F 60 16 05/04/17 08:00 73 70 71 74 16 05/04/17 07:39 70 71 74 05/04/17 07:32 05/04/17 07:05 98.7 F 73 16 05/04/17 04:00 70 16 05/04/17 03:41 97.9 F 70 16 05/04/17 00:00 68 18 05/03/17 23:48 97.7 F 78 18 05/03/17 20:00 98.0 F 70 18 05/03/17 19:22 97.8 F 62 18 05/03/17 18:30 62 18 05/03/17 17:02 60 18 05/03/17 16:05 63 60 69 05/03/17 15:29 97.8 F 64 20 BP BP BP BP BP Pulse Ox 05/04/17 12:00 05/04/17 11:45 111/46 94 L 05/04/17 08:00 05/04/17 07:39 133/65 129/59 124/58 05/04/17 07:32 93 L 05/04/17 07:05 123/60 93 L 05/04/17 04:00 05/04/17 03:41 112/56 95 05/04/17 00:00 05/03/17 23:48 123/58 92 L 05/03/17 20:00 111/54 95 05/03/17 19:22 95/54 94 L 05/03/17 18:30 95/54 94 L 05/03/17 17:02 104/57 95 05/03/17 16:05 108/55 97/51 109/57 05/03/17 15:29 83/51 96 Intake and Output 05/03/17 05/04/17 05/04/17 22:59 06:59 14:59 Intake Total 150 761 Output Total 250 Balance 150 -250 761 Intake: Oral 150 761 Output: Urine 250 Other: Voiding Method Urinal Urinal Urinal # Voids 1 Weight 92.986 kg 94 kg Gen: This is an 86-year-old male. He is sitting up in the ER stretcher and appears to be in no acute distress. HEENT: Head is atraumatic, normocephalic. Pupils equal, round. Sclerae is anicteric. NECK: Supple. No JVD. No lymphadenopathy. No thyromegaly. LUNGS: Clear to auscultation. No wheezes or rhonchi. No intercostal retractions. HEART: Regular rate and rhythm. No murmur. ABDOMEN: Soft. Bowel sounds are present. No masses. No tenderness. EXTREMITIES: No pedal edema. No calf tenderness. Skin lesion to the bilateral ankles more so on the right which is been chronic and patient follows with Dr. Gauthier. NEUROLOGICAL: Patient is awake, alert and oriented x3. Cranial nerves 2 through 12 are grossly intact. Results CBC & Chem 7: 05/03/17 15:57 05/03/17 15:57 Labs: Abnormal Lab Results - Last 24 Hours (Table) 05/03/17 05/03/17 05/03/17 Range/Units 15:57 15:57 23:35 WBC 13.2 H (3.8-10.6) k/uL Neutrophils # 11.6 H (1.3-7.7) k/uL Lymphocytes # 0.7 L (1.0-4.8) k/uL Sodium 131 L (137-145) mmol/L Chloride 97 L (98-107) mmol/L Glucose 113 H (74-99) mg/dL Total Creatine Kinase 50 L (55-170) U/L 05/04/17 Range/Units 07:48 WBC (3.8-10.6) k/uL Neutrophils # (1.3-7.7) k/uL Lymphocytes # (1.0-4.8) k/uL Sodium (137-145) mmol/L Chloride (98-107) mmol/L Glucose (74-99) mg/dL Total Creatine Kinase 49 L (55-170) U/L Thrombosis Risk Factor Assmnt - DVT/VTE Prophylaxis DVT/VTE Prophylaxis: Mechanical Prophylaxis ordered - Choose All That Apply Each Factor Represents 1 point: Obesity (BMI >25) Each Risk Factor Represents 3 Points: Age 75 years or older Thrombosis Risk Factor Assessment Total Risk Factor Score: 4 Thrombosis Risk Factor Assessment Level: Moderate Risk Assessment and Plan Plan: 1. Syncopal episodes most likely due to dehydration and the effect of hydrochlorothiazide and Imdur. Cardiology consult appreciated. Florinef was started. Imdur decreased to half dose and hydrochlorothiazide discontinued. 2. Hypertension. Continue Lopressor 25 mg 3 times daily and hydrochlorothiazide will be discontinued. 3. Hyperlipidemia. Continue zocor. 4. Benign prostatic hypertrophy. Continue finasteride 5 mg daily. 5. Known coronary artery disease. Imdur decreased to 15 mg daily. Continue aspirin 81 mg daily. Patient on the observation unit. Discharge plan: Return home. Impression and plan of care have been directed as dictated by the signing physician. Anneliese Rawls nurse practitioner acting as scribe for signing physician.
== END 2017-05-04 14:45 | disposition home or self-care (01) ==
LOC: EC 15:24 → 3OBS 18:51
PROVIDERS: ADMIT Internal Medicine; ATTEND Internal Medicine
DX: R55 Syncope and collapse (principal); E86.0 Dehydration; R07.9 Chest pain, unspecified; R11.0 Nausea; I11.0 Hypertensive heart disease with heart failure; E78.5 Hyperlipidemia, unspecified; N40.0 Benign prostatic hyperplasia without lower urinary tract symptoms; I25.10 Atherosclerotic heart disease of native coronary artery without angina pectoris; K21.9 Gastro-esophageal reflux disease without esophagitis; I50.9 Heart failure, unspecified; Z79.82 Long term (current) use of aspirin; Z79.899 Other long term (current) drug therapy; I25.2 Old myocardial infarction; Z85.21 Personal history of malignant neoplasm of larynx; Z92.3 Personal history of irradiation; Z92.21 Personal history of antineoplastic chemotherapy; Z95.5 Presence of coronary angioplasty implant and graft; Z95.0 Presence of cardiac pacemaker; Z87.891 Personal history of nicotine dependence; T50.2X5A Adverse effect of carbonic-anhydrase inhibitors, benzothiadiazides and other diuretics, initial encounter; T46.3X5A Adverse effect of coronary vasodilators, initial encounter; Z80.8 Family history of malignant neoplasm of other organs or systems
CPT/HCPCS: 36415; 93005; 85379; 80053; 82550 ×2; 82553 ×2; 83735; 84484 ×2; 85025; 85610; 85730; 71020; 99285; G0378 ×2; S0138

== ENCOUNTER 2017-06-09 16:08 | Inpatient (IN) | payer MEDICARE ==
[2017-06-09] MEDS ORDERED: MORPHINE SULFATE 4 MG/ML SYRINGE IVP STA ×2 (16:32→18:35)
[2017-06-09] MEDS ORDERED: METOCLOPRAMIDE 5 MG/ML 2 ML VIAL IVP STA (16:32)
[2017-06-09 16:36] LABS: Glucose,Whole Blood 104 mg/dL (75-99)
[2017-06-09 16:55] LABS: Basophils # (A) 0.1 k/uL (0-0.2); Basophils % (A) 1 %; CH 31.6; CHCM 36.2; Eosinophils # (A) 0.2 k/uL (0-0.7); Eosinophils % (A) 2 %; HCT 38.3 % (39.0-53.0); HGB 14.2 gm/dL (13.0-17.5); Luc # (Auto) 0.14; Luc % (Auto) 2; Lymphocytes % (A) 15 %; MCH 32.4 pg (25.0-35.0); Mean Platelet Volume 7.4; Monocytes # (A) 0.4 k/uL (0-1.0); Monocytes % (A) 6 %; Neutrophils # (A) 5.3 k/uL (1.3-7.7); Neutrophils % (A) 75 %; RBC 4.37 m/uL (4.30-5.90); RDW 14.1 % (11.5-15.5); WBC 7.1 k/uL (3.8-10.6); WBC (Perox) 6.93
[2017-06-09 17:03] LABS: Partial Thromboplastin Time 22.5 sec (22.0-30.0); Prothrombin Time 10.3 sec (9.0-12.0)
[2017-06-09 17:04] LABS: ALT 24 U/L (21-72); AST 23 U/L (17-59); Alkaline Phosphatase 58 U/L (38-126); Anion Gap 10 mmol/L; Blood Urea Nitrogen 15 mg/dL (9-20); Carbon Dioxide 24 mmol/L (22-30); Chloride 101 mmol/L (98-107); Glucose 98 mg/dL (74-99); Non-African American GFR(MDRD) >60 (>60 ml/min/1.73 sqM); Potassium 4.4 mmol/L (3.5-5.1); Sodium 135 mmol/L (137-145); Total Bilirubin 0.6 mg/dL (0.2-1.3); Total Protein 6.7 g/dL (6.3-8.2)
--- NOTE | 2017-06-09 17:06 | XR ---
EXAMINATION TYPE: XR chest 2V DATE OF EXAM: 06/09/2017 COMPARISON: Prior chest x-ray 05/03/2017 HISTORY: Altered mental status, headache and slurred speech TECHNIQUE: Frontal and lateral views of the chest are obtained. FINDINGS: There is no focal air space opacity, pleural effusion, or pneumothorax seen. The cardiac silhouette size is stable. Pacemaker present in the left pectoral region, leads are present in the ri ght atrium and ventricle. Lung volumes are low, patient is rotated. The osseous structures are intac t. IMPRESSION: No acute cardiopulmonary process.
[2017-06-09 17:10] LABS: MCV 87.7 fL (80.0-100.0)
--- NOTE | 2017-06-09 17:10 | CT ---
EXAMINATION TYPE: CT brain wo con DATE OF EXAM: 06/09/2017 COMPARISON: NONE HISTORY: Fall 1 week ago. Decreased mental status per patient family CT DLP: 1121 mGycm Automated exposure control for dose reduction was used. Helical imaging through the brain FINDINGS: Cerebral vascular calcifications are present. There is cortical atrophy which is likely age-related. Periventricular white matter shows patchy low attenuation. No hemorrhage or hydrocephalus. Paranasal sinuses are well-aerated. The orbits are intact. IMPRESSION: AGE-RELATED CHANGES OF ATROPHY AND PROBABLE CHRONIC SMALL VESSEL ISCHEMIA. MRI MAY BE OF BENEFIT.
[2017-06-09 17:15] LABS: Creatine Kinase 73 U/L (55-170)
[2017-06-09] MEDS ORDERED: hydrALAZINE HCL 20 MG/ML 1 ML VIAL IVP STA ×2 (17:19→18:35)
[2017-06-09 17:25] LABS: VBG PH 7.45 (7.31-7.41)
[2017-06-09 17:28] LABS: Creatine Kinase MB 1.9 ng/mL (0.0-2.4); Troponin I <0.012 ng/mL (0.000-0.034)
[2017-06-09 17:48] LABS: Ammonia <9 umol/L (<30)
[2017-06-09 18:42] LABS: Appearance,Urine Clear (Clear); Bilirubin,Urine Negative (Negative); Glucose,Urine (UA) Negative (Negative); Ketones,Urine Negative (Negative); Leukocyte Esterase,Urine Negative (Negative); Nitrite,Urine Negative (Negative); Protein,Urine Trace (Negative); UA Billing (MACRO vs. MICRO) CHEM; Urobilinogen,Urine <2.0 mg/dL (<2.0)
[2017-06-09] MEDS ORDERED: ONDANSETRON 4 MG/2 ML VIAL IVP STA (19:25)
[2017-06-09] MEDS ORDERED: NALOXONE 0.4 MG/ML 1 ML VIAL IV PRN (20:26)
[2017-06-09] MEDS ORDERED: MORPHINE SULFATE 4 MG/ML SYRINGE IV PRN (20:26)
[2017-06-09] MEDS ORDERED: IBUPROFEN 400 MG TAB PO PRN (20:26)
[2017-06-09 20:37] VITALS: RESP 16
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
[2017-06-09] MEDS: DEXTROSE 5%-0.45% NACL 1,000 ML IV SCH (21:46)
[2017-06-09] MEDS: METOPROLOL TARTRATE 25 MG TAB PO SCH (22:28)
[2017-06-09] MEDS: METOCLOPRAMIDE 5 MG/ML 2 ML VIAL IVP SCH (22:28)
[2017-06-10] MEDS: ACETAMINOPHEN TAB 325 MG TAB PO PRN ×2 (00:37→14:42)
[2017-06-10] MEDS: ONDANSETRON 4 MG/2 ML VIAL IVP PRN ×2 (01:02→15:47)
[2017-06-10 07:30] LABS: Basophils % (A) 0 %; CH 31.4; CHCM 34.9; Eosinophils % (A) 0 %; HCT 39.3 % (39.0-53.0); HDW 2.89; HGB 13.9 gm/dL (13.0-17.5); Luc # (Auto) 0.13; Luc % (Auto) 1; Lymphocytes # (A) 0.8 k/uL (1.0-4.8); Lymphocytes % (A) 8 %; MCH 32.1 pg (25.0-35.0); MCHC 35.4 g/dL (31.0-37.0); MCV 90.6 fL (80.0-100.0); Mean Platelet Volume 6.9; Monocytes # (A) 0.5 k/uL (0-1.0); Monocytes % (A) 5 %; Neutrophils % (A) 86 %; RBC 4.34 m/uL (4.30-5.90); RDW 14.1 % (11.5-15.5); WBC 10.5 k/uL (3.8-10.6); WBC (Perox) 10.58
[2017-06-10 07:52] LABS: Anion Gap 8 mmol/L; Blood Urea Nitrogen 16 mg/dL (9-20); Calcium 8.4 mg/dL (8.4-10.2); Carbon Dioxide 23 mmol/L (22-30); Chloride 101 mmol/L (98-107); Glucose 104 mg/dL (74-99); Non-African American GFR(MDRD) >60 (>60 ml/min/1.73 sqM); Potassium 4.4 mmol/L (3.5-5.1); Sodium 132 mmol/L (137-145)
[2017-06-10] MEDS ORDERED: NITROGLYCERIN SL TABS 0.4 MG TAB SUBLINGUAL PRN (07:56)
[2017-06-10] MEDS ORDERED: ASPIRIN 81 MG CHEW PO SCH (09:00)
[2017-06-10] MEDS: FINASTERIDE 5 MG TAB PO SCH (09:36)
[2017-06-10] MEDS: ATORVASTATIN 20 MG TAB PO SCH (09:36)
[2017-06-10] MEDS: HYDROCHLOROTHIAZIDE 25 MG TAB PO SCH (09:36)
[2017-06-10] MEDS: METOPROLOL TARTRATE 25 MG TAB PO SCH ×3 (09:36→21:35)
[2017-06-10] MEDS: ISOSORBIDE MONONITRATE ER 15 MG TAB PO SCH (09:36)
[2017-06-10] MEDS: METOCLOPRAMIDE 5 MG/ML 2 ML VIAL IVP SCH (09:37)
[2017-06-10] MEDS: PANTOPRAZOLE 40 MG TABLET PO SCH ×2 (09:37→18:16)
--- NOTE | 2017-06-10 14:12 | US ---
EXAMINATION TYPE: US carotid duplex BILAT DATE OF EXAM: 06/10/2017 COMPARISON: NONE CLINICAL HISTORY: 86-year-old male TIA. Patient stated had episode of garbled speech. TECHNIQUE: Carotid duplex ultrasound examination. Indirect Doppler criteria was utilized. FINDINGS: Mild atherosclerotic changes at the right bifurcation and moderate on the left. EXAM MEASUREMENTS: RIGHT: Peak Systolic Velocity (PSV) cm/sec ----- Right CCA: 74.6 ----- Right ICA: 93.1 ----- Right ECA: 129.9 ICA/CCA ratio: 1.2 RIGHT: End Diastole cm/sec ----- Right CCA: 16.4 ----- Right ICA: 27.0 ----- Right ECA: 15.6 LEFT: Peak Systolic Velocity (PSV) cm/sec ----- Left CCA: 62.5 ----- Left ICA: 214.3 ----- Left ECA: 117.7 ICA/CCA ratio: 3.4 LEFT: End Diastole cm/sec ----- Left CCA: 12.0 ----- Left ICA: 62.4 ----- Left ECA: 0.0 VERTEBRALS (direction of flow): Right Vertebral: Antegrade Left Vertebral: Antegrade Boiler Installer notes: Abnormally elevated PSV in proximal Right ECA and in proximal to mid Left ICA. IMPRESSION: Measurements suggest a moderate (50-69%) stenosis within the proximal left ICA. Further evaluation as indicated. Criteria for Assigning % of Stenosis / Diameter reduction (Estimation based on the indirect measurements of the internal carotid artery velocities (ICA PSV). 1. Normal (no stenosis)=ICA PSV < 125 cm/s: ratio < 2.0: ICA EDV<40 cm/s. 2. Less than 50% stenosis=ICA PSV < 125 cm/s: ratio < 2.0: ICA EDV<40 cm/s. 3. 50 to 69% stenosis=ICA PSV of 125 to 230 cm/s: ration 2.0 ? 4.0: ICA EDV 40-100 cm/s. 4. Greater than 70% stenosis to near occlusion= ICA PSV > 230 cm/s: ratio > 4.0: ICA EDV > 100 cm/s. 5. Near occlusion= ICA PSV velocities may be low or undetectable: variable ratio and ICA EDV. 6. Total occlusion=unable to detect flow.
[2017-06-10] MEDS: METOCLOPRAMIDE 10 MG TAB PO SCH ×2 (14:42→21:35)
--- NOTE | 2017-06-10 14:56 | P.HPIM ---
History of Present Illness H&P Date: 06/10/17 Chief Complaint: CVA/TIA, intractable headache, change mental status, slurred speech, 86-year-old male one of Dr. Mckeon's patient who was seen in the hospital in April for 2016 for syncopal episode was claimed to be related to dehydration and severe hypertension. Patient was hospitalized again 4 weeks earlier for chest pain ended up having an angiogram which showed intermediate in -stent stenosis involving the mid RCA seems to be in change from before and recommended to do medical management. With medication going up patient become more symptomatic with hypotension and such ended up changing his medication in April and patient felt slightly but better. Patient apparently had severe closed head trauma with a garage door hit his head causing severe trauma, he get knocked down on the floor, recurrent recover from it but did not feel good afterward Having symptoms on and off with increased headache and worsening symptoms. Patient was in to see Dr. Mckeon on 2016 was having trouble expressing himself with significant dysphagia did not feel well had severe intractable headache not controlled with typical medication. Per Dr. Mckeon was recommended to send patient to the emergency department at [facility] where was seen and evaluated CAT scan of the brain did not show any bleeding at the time. Patient blood pressure and vitals were quite but abnormal his blood pressure was as high as 216/93 with ham not functioning well and had significant change in altered mental status change with severe intractable headache patient was hospitalized will be seen urology continue to monitor and bring the blood pressure down medication continue and start patient on his home meds and patient might need further workup neurology craig. Review of Systems Constitutional: Reports anorexia, Reports chronic headaches, Reports chronic pain, Reports fatigue, Reports fever, Reports lethargy, Reports malaise, Reports night sweats, Reports weakness, Reports weight gain, Denies as per HPI, Denies chills, Denies daytime sleepiness, Denies poor appetite, Denies sweats, Denies weight loss Eyes: bilateral as per HPI Ears: bilateral: decreased hearing Ears, nose, mouth and throat: Reports ant. neck pain, Reports nasal congestion, Reports sinus pressure, Reports swelling in mouth, Denies as per HPI, Denies bleeding gums, Denies dental pain, Denies dysphagia, Denies epistaxis, Denies headache, Denies hoarseness, Denies mouth pain, Denies nasal discharge, Denies neck fullness/pressure, Denies neck lump, Denies nose pain, Denies odynophagia, Denies post-nasal drip, Denies sinus pain, Denies swelling in throat, Denies sore throat, Denies vertigo, Denies voice changes Cardiovascular: Reports chest pain, Reports decreased exercise tolerance, Reports dyspnea on exertion, Reports edema, Reports high blood pressure, Reports irregular heart beat, Reports leg edema, Reports lightheadedness, Reports paroxysmal nocturnal dyspnea, Reports rapid heart beat, Reports shortness of breath, Denies as per HPI, Denies claudication, Denies orthopnea, Denies palpitations, Denies phlebitis, Denies syncope Respiratory: Reports congestion, Reports dyspnea, Denies as per HPI, Denies cough, Denies cough with sputum, Denies excessive sputum, Denies hemoptysis, Denies home oxygen, Denies pain, Denies pain on inspiration, Denies pleurisy, Denies respiratory infections, Denies sleep apnea, Denies snoring, Denies wheezing Gastrointestinal: Reports bloating, Reports dyspepsia, Reports indigestion, Reports nausea, Denies as per HPI, Denies abdominal pain, Denies belching, Denies BRBPR, Denies change in bowel habits, Denies coffee ground emesis, Denies constipation, Denies diarrhea, Denies early satiety, Denies excessive gas , Denies heartburn, Denies hematemesis, Denies hematochezia, Denies jaundice, Denies lactose intolerance, Denies loss of appetite, Denies melena, Denies vomiting Genitourinary: Reports kidney stones, Reports nocturia, Reports polyuria, Denies as per HPI, Denies decreased libido, Denies difficulties fathering child , Denies discharge, Denies dysuria, Denies erectile dysfunction, Denies flank pain, Denies genital pain, Denies genital sores, Denies hematuria, Denies impotence, Denies incontinence, Denies testicular lump, Denies testicular pain, Denies urinary frequency, Denies urinary hesitancy, Denies urinary retention Musculoskeletal: Reports loss of height, Reports low back pain, Reports myalgias , Reports neck pain, Reports neck stiffness Musculoskeletal: bilateral: ankle pain Integumentary: Reports pruritus, Reports rash, Reports sores, Denies as per HPI , Denies acne, Denies boils, Denies brittle nails, Denies change in hair/nails, Denies color changes, Denies darkening of skin, Denies depigmentation, Denies dryness, Denies foot/leg ulcers, Denies growths, Denies hirsutism, Denies lesions, Denies onychomycosis, Denies striae, Denies unusual bruising, Denies wounds Neurological: Reports ataxia, Reports balance difficulties, Reports burning pain , Reports change in mentation, Reports change in speech, Reports confusion, Reports double vision, Reports gait dysfunction, Reports head injury, Reports headaches, Reports lack of coordination, Reports memory loss, Reports migraines , Reports numbness, Reports paresthesias, Reports syncope, Reports tingling, Reports weakness, Denies as per HPI, Denies aphasia, Denies change in smell/ taste, Denies convulsions, Denies hearing difficulties, Denies loss of vision, Denies motor disturbance, Denies paralysis, Denies seizures, Denies sensory deficit, Denies spasticity, Denies tic, Denies transient paralysis, Denies tremors, Denies vertigo, Denies visual changes Psychiatric: Reports anhedonia, Reports anxiety, Reports depression, Reports mood swings, Reports sadness/tearfulness, Denies as per HPI, Denies anxiety attacks, Denies change in appetite, Denies change in libido, Denies change in sleep habits, Denies confusion, Denies difficulty concentrating, Denies disorientation, Denies hallucinations, Denies hopelessness, Denies hypersomnia, Denies insomnia, Denies irritability, Denies memory loss, Denies paranoia, Denies sleep disturbances, Denies suicidal ideation Endocrine: Reports excessive sweating, Reports excessive thirst, Reports fatigue , Denies as per HPI, Denies cold intolerance, Denies deepening of the voice, Denies flushing, Denies heat intolerance, Denies high blood sugars, Denies increase in ring/shoe/hat size, Denies low blood sugars, Denies nocturia, Denies palpitations, Denies polydipsia, Denies polyphagia, Denies polyuria, Denies proptosis, Denies recent glucocorticoid use, Denies thyroid mass, Denies weight change Hematologic/Lymphatic: Reports easy bruising, Denies as per HPI, Denies easy bleeding, Denies lymphadenopathy, Denies lymphedema, Denies thrombophilia Allergic/Immunologic: Reports allergic rhinitis, Denies as per HPI, Denies anaphylaxis, Denies angioedema, Denies gluten intolerance, Denies persistent infections, Denies seasonal allergies, Denies urticaria, Denies wheezing Past Medical History Past Medical History: Cancer, Heart Failure, GERD/Reflux, Hyperlipidemia, Hypertension, Myocardial Infarction (VT), Osteoarthritis (OA), Syncope Additional Past Medical History / Comment(s): (per pt's daughter-approx 10 days ago tried to beat the garage door-door came down on his head.)- Peripheral neuropathy, 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 Ashley, constipation. wears depends. Last Myocardial Infarction Date:: 1988 History of Any Multi-Drug Resistant Organisms: None Reported Past Surgical History: Back Surgery Additional Past Surgical History / Comment(s): pacemaker, cardiac stent done at [facility] in , lumbar surgery 3, bilateral cataract removal and intraocular lens implants, colonoscopies Past Anesthesia/Blood Transfusion Reactions: No Reported Reaction Additional Past Anesthesia/Blood Transfusion Reaction / Comment(s): pt is but lives alone because his is in assisted living . pt is independant no assistive devices lives in a single level home no steps. no outside services recieved. no medical equipment . no past service. 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 Date of Last Stent Placement:: 1991 Smoking Status: Former smoker - Past Family History Mother Family Medical History: No Reported History Additional Family Medical History / Comment(s): was killed in accident Father Additional Family Medical History / Comment(s): "heart problems" and brain cancer Brother(s) Additional Family Medical History / Comment(s): Patient does not have any brothers or sisters. Daughter(s) Additional Family Medical History / Comment(s): Patient has 2 sons and 2 daughters. One daughter has coronary artery disease. Medications and Allergies Home Medications Medication Instructions Recorded Confirmed Type Aspirin 81 mg PO DAILY 04/12/14 06/09/17 History Finasteride 5 mg PO DAILY 04/12/14 06/09/17 History Metoprolol Tartrate [Lopressor] 25 mg PO TID 04/12/14 06/09/17 History Pantoprazole Sodium 40 mg PO BID 04/12/14 06/09/17 History Metoclopramide [Reglan] 10 mg PO BID 04/15/17 06/09/17 History Simvastatin [Zocor] 40 mg PO DAILY 04/15/17 06/09/17 History Nitroglycerin Sl Tabs [Nitrostat] 0.4 mg SUBLINGUAL Q5M PRN 05/03/17 06/09/17 History Hydrochlorothiazide [Hydrodiuril] 25 mg PO DAILY 06/09/17 06/09/17 History Allergies Allergy/AdvReac Type Severity Reaction Status Date / Time No Known Allergies Allergy Verified 06/09/17 17:18 Physical Exam Vitals: Vital Signs Temp Pulse Pulse Resp BP BP Pulse Ox 06/10/17 07:00 98.1 F 73 16 128/63 94 L 06/10/17 00:41 65 16 109/64 98 06/10/17 00:12 16 06/09/17 20:36 98.3 F 111 H 16 138/65 96 06/09/17 19:59 102 H 18 136/65 96 06/09/17 19:22 97.7 F 88 16 147/65 95 06/09/17 18:39 85 18 190/87 97 06/09/17 18:25 82 18 209/89 96 06/09/17 18:00 84 18 201/87 96 06/09/17 17:16 216/93 06/09/17 16:15 97.2 F L 63 16 201/93 94 L Intake and Output 06/09/17 06/10/17 06/10/17 22:59 06:59 14:59 Intake Total 590 Balance 590 Intake: Oral 590 Other: Voiding Method Toilet Urinal # Voids 1 Weight 92.986 kg - Constitutional General appearance: no average body habitus, cooperative, disheveled, no mild distress, no morbidly obese, no acute distress, no obese, no severe distress, no thin - EENT Eyes: abnormal pupil, no anicteric sclerae, no disc margins sharp, no edentulous , no EOMI, no PERRLA, no fundus normal, no photophobia, no dentition normal, no poor dentition, no ptosis, no scleral icterus, normal appearance ENT: no hard of hearing, no hearing grossly normal, no NA/AT, normal oropharynx , no other, no pharyngeal erythema, no thrush, no tonsillar exudates, no tonsillar swelling Ears: bilateral: normal - Neck Neck: no lymphadenopathy, normal ROM, no other, no rigidity, no stridor, no thyromegaly Carotids: bilateral: upstroke normal, upstroke delayed Thyroid: bilateral: normal size - Respiratory Respiratory: bilateral: CTA, diminished - Cardiovascular Rhythm: regular Heart sounds: normal: S1, S2 Abnormal Heart Sounds: systolic murmur, S3 Gallop - Gastrointestinal General gastrointestinal: decreased bowel sounds, normal bowel sounds, organomegaly, soft - Integumentary Integumentary: no calor, cellulitis, no cyanotic, no decreased turgor, no flushed, no jaundiced, normal, no normal turgor, pale, rash, no ulcer - Neurologic Neurologic: CNII-XII intact - Musculoskeletal Musculoskeletal: no gait normal, generalized weakness, strength equal bilaterally, no right sided weakness, no left sided weakness - Psychiatric Psychiatric: A&O x's 3, no appropriate affect, no intact judgment & insight Results CBC & Chem 7: 06/10/17 07:07 06/10/17 07:07 Labs: Abnormal Lab Results - Last 24 Hours (Table) 06/09/17 06/09/17 06/09/17 Range/Units 16:35 16:39 16:39 Hct 38.3 L (39.0-53.0) % Neutrophils # (1.3-7.7) k/uL Lymphocytes # (1.0-4.8) k/uL VBG pH (7.31-7.41) VBG pCO2 (37-51) mmHg Sodium 135 L (137-145) mmol/L Glucose (74-99) mg/dL POC Glucose (mg/dL) 104 H (75-99) mg/dL TSH 5.120 H (0.465-4.680) mIU/L Urine Protein (Negative) 06/09/17 06/09/17 06/10/17 Range/Units 17:20 18:28 07:07 Hct (39.0-53.0) % Neutrophils # 9.0 H (1.3-7.7) k/uL Lymphocytes # 0.8 L (1.0-4.8) k/uL VBG pH 7.45 H (7.31-7.41) VBG pCO2 35 L (37-51) mmHg Sodium (137-145) mmol/L Glucose (74-99) mg/dL POC Glucose (mg/dL) (75-99) mg/dL TSH (0.465-4.680) mIU/L Urine Protein Trace H (Negative) 06/10/17 Range/Units 07:07 Hct (39.0-53.0) % Neutrophils # (1.3-7.7) k/uL Lymphocytes # (1.0-4.8) k/uL VBG pH (7.31-7.41) VBG pCO2 (37-51) mmHg Sodium 132 L (137-145) mmol/L Glucose 104 H (74-99) mg/dL POC Glucose (mg/dL) (75-99) mg/dL TSH (0.465-4.680) mIU/L Urine Protein (Negative) Thrombosis Risk Factor Assmnt - DVT/VTE Prophylaxis DVT/VTE Prophylaxis: Pharmacologic Prophylaxis ordered, Mechanical Prophylaxis ordered - Choose All That Apply Any of the Below Risk Factors Present?: Yes Each Factor Represents 1 point: Obesity (BMI >25) Other Risk Factors: Yes Each Risk Factor Represents 2 Points: Malignancy Each Risk Factor Represents 3 Points: Age 75 years or older Other congenital or acquired thrombophilia - If yes, enter type in comment: No Thrombosis Risk Factor Assessment Total Risk Factor Score: 6 Thrombosis Risk Factor Assessment Level: High Risk Assessment and Plan Plan: 1 CVA/TIA: With patient's current symptoms especially the neuro loss including his balance gait speech and weakness CT of the brain came back negative further workup including EKG and carotid ultrasound will be done. Echocardiogram was done recently no need to repeat at this point. 2 close head trauma with concussion: Patient is recovering from it so far no history of bleed no bleeding on CAT scan whether we do an MRI of the brain or not it will be up to the workup for CVA. 3 altered mental status: Most likely from CVA and close head trauma continue to watch his mentation carefully for now. 4 urgent hypertension: With blood pressure very high currently. Resume home meds including Lopressor high diarrheal and isosorbide patient had 2 doses of hydralazine at the ED will continue medication and titrated higher. His metoprolol was cut down and amlodipine was stopped from his last admission may be starting him back on it of the blood pressure remain elevated. 5 hyperlipidemia: Continue patient on Lipitor 20 mg a day. 6 BPH: Continue patient on Proscar watch for any urinary retention. 7 severe GERD/GI prophylaxis: Patient remain on pantoprazole 40 mg daily. 8 severe abnormal balance and gait: Patient might start PTOT and titrated gradually. DVT prophylaxis: Patient will have knee-high NITHIN hose and Venodyne boots. Early mobilization will be done as well. CODE STATUS: Full code. Expectation from this admission: Patient be in the hospital for 1-2 nights.
--- NOTE | 2017-06-10 20:31 | P.CNNES ---
History of Present Illness Consult date: 06/10/17 Requesting physician: Mauri Flores Reason for Consult: Headache Chief complaint: Headache and TIA History of Present Illness: The patient is a pleasant 86-year-old male who is being evaluated by the neurology service per the request of Dr. Flores for the above-mentioned complaints. The patient reports that he suffered a head injury several days ago after he hit his head on his garage door. He did not have any loss of consciousness. He was having a mild headache after that and he went to see Dr. Armin Mckeon and at that office visit, he was found to be somewhat confused and was having difficulty answering questions. He was brought into [facility] emergency room where the patient was still found to be confused and his blood pressure was 203/91. A repeat blood pressure in the emergency room was 216/93. According to his daughter, who was at bedside at the time of my evaluation, the patient was also noticed to be having slurred speech and a slight left facial droop. The patient was admitted for further workup and management and his blood pressure has significantly improved today. He reports that his headache has resolved and he denies any neurological symptoms at this time. A computed tomography scan of the brain was done which showed generalized atrophy and small vessel ischemic changes. The patient does take aspirin 81 mg daily at home. Carotid Dopplers were done which showed 50-69 percent stenosis on the left side. I did review his EEG which was normal. His CBC, comprehensive metabolic profile, cardiac enzymes, and urinalysis were reviewed and were normal. Review of Systems All systems: negative Constitutional: Denies chills, Denies fever Eyes: denies blurred vision, denies pain Ears, nose, mouth and throat: Reports headache, Denies sore throat Cardiovascular: Denies chest pain, Denies shortness of breath Respiratory: Denies cough Gastrointestinal: Denies abdominal pain, Denies diarrhea, Denies nausea, Denies vomiting Musculoskeletal: Denies myalgias Integumentary: Denies pruritus, Denies rash Neurological: Reports confusion, Reports head injury, Reports headaches, Reports hearing difficulties, Denies numbness, Denies weakness Psychiatric: Denies anxiety, Denies depression Endocrine: Denies fatigue, Denies weight change Past Medical History Past Medical History: Cancer, Heart Failure, GERD/Reflux, Hyperlipidemia, Hypertension, Myocardial Infarction (NH), Osteoarthritis (OA), Syncope Additional Past Medical History / Comment(s): (per pt's daughter-approx 10 days ago tried to beat the garage door-door came down on his head.)- Peripheral neuropathy, 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 wears depends. Last Myocardial Infarction Date:: 1988 History of Any Multi-Drug Resistant Organisms: None Reported Past Surgical History: Back Surgery Additional Past Surgical History / Comment(s): pacemaker, cardiac stent done at [facility] in , lumbar surgery 3, bilateral cataract removal and intraocular lens implants, colonoscopies Past Anesthesia/Blood Transfusion Reactions: No Reported Reaction Additional Past Anesthesia/Blood Transfusion Reaction / Comment(s): pt is but lives alone because his is in assisted living . pt is independant no assistive devices lives in a single level home no steps. no outside services recieved. no medical equipment . no past service. 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 Date of Last Stent Placement:: 1991 Smoking Status: Former smoker - Past Family History Mother Family Medical History: No Reported History Additional Family Medical History / Comment(s): was killed in accident Father Additional Family Medical History / Comment(s): "heart problems" and brain cancer Brother(s) Additional Family Medical History / Comment(s): Patient does not have any brothers or sisters. Daughter(s) Additional Family Medical History / Comment(s): Patient has 2 sons and 2 daughters. One daughter has coronary artery disease. Medications and Allergies Home Medications Medication Instructions Recorded Confirmed Type Aspirin 81 mg PO DAILY 04/12/14 06/09/17 History Finasteride 5 mg PO DAILY 04/12/14 06/09/17 History Metoprolol Tartrate [Lopressor] 25 mg PO TID 04/12/14 06/09/17 History Pantoprazole Sodium 40 mg PO BID 04/12/14 06/09/17 History Metoclopramide [Reglan] 10 mg PO BID 04/15/17 06/09/17 History Simvastatin [Zocor] 40 mg PO DAILY 04/15/17 06/09/17 History Nitroglycerin Sl Tabs [Nitrostat] 0.4 mg SUBLINGUAL Q5M PRN 06/04/17 07/11/17 History Hydrochlorothiazide [Hydrodiuril] 25 mg PO DAILY 06/09/17 06/09/17 History Allergies Allergy/AdvReac Type Severity Reaction Status Date / Time No Known Allergies Allergy Verified 06/09/17 17:18 Physical Examination - Vital Signs Vital Signs: Vital Signs Temp Pulse Pulse Resp BP BP Pulse Ox 06/10/17 15:00 97.9 F 76 16 160/73 96 06/10/17 07:00 98.1 F 73 16 128/63 94 L 06/10/17 00:41 65 16 109/64 98 06/10/17 00:12 16 06/09/17 20:36 98.3 F 111 H 16 138/65 96 Intake and Output 06/10/17 06/10/17 06/10/17 06:59 14:59 22:59 Intake Total 590 160 Balance 590 160 Intake: Intake, IV Titration 160 Amount Dextrose 5%-0.45% NaCl 1, 160 000 ml @ 20 mls/hr IV . Q24H KIMMY Rx#:[id number] Oral 590 Other: Voiding Method Toilet Urinal # Voids 1 - Constitutional General appearance: average body habitus, cooperative, no acute distress - EENT EENT: ATNC, PERRL, hearing aids present - Cardiovascular Cardiovascular: regular rate Extremities: no peripheral edema bilaterally - Gastrointestinal Gastrointestinal: soft, non-tender - Integumentary Integumentary: normal - Neurologic The patient is awake alert and oriented 3. Speech and language were normal. Strength is full in all 4 extremities. Sensory exam was normal to light touch in all 4 extremities. No tremors or seizure-like activity is seen. No facial asymmetry is noticed on cranial nerve testing. Speech examination: intact Detailed motor examination: grossly full strength in all extremities Detailed sensory examination: intact, light touch - Psychiatric Psychiatric: mood/affect appropriate Results I did review his computed tomography scan of the brain, carotid Doppler, and EEG as mentioned above. - Laboratory Findings CBC and BMP: 06/10/17 07:07 06/10/17 07:07 Abnormal Lab Findings: Abnormal Labs 06/09/17 06/09/17 06/09/17 16:35 16:39 16:39 Hct 38.3 L Neutrophils # Lymphocytes # VBG pH VBG pCO2 Sodium 135 L Glucose POC Glucose (mg/dL) 104 H TSH 5.120 H Urine Protein 06/09/17 06/09/17 06/10/17 17:20 18:28 07:07 Hct Neutrophils # 9.0 H Lymphocytes # 0.8 L VBG pH 7.45 H VBG pCO2 35 L Sodium Glucose POC Glucose (mg/dL) TSH Urine Protein Trace H 06/10/17 07:07 Hct Neutrophils # Lymphocytes # VBG pH VBG pCO2 Sodium 132 L Glucose 104 H POC Glucose (mg/dL) TSH Urine Protein Assessment and Plan (1) Transient cerebral ischemia Status: Acute (2) Expressive aphasia Status: Resolved (3) Carotid stenosis, left Status: Chronic (4) Headache Status: Acute (5) Hypertensive urgency Status: Resolved Plan: The patient did have an episode of altered mental status and he has been having significant headaches over the past few days. I do believe these symptoms were due to his uncontrolled hypertension as his blood pressure was significantly elevated initially when he arrived to the emergency room. His blood pressure has normalized at this time with medication adjustments. I do recommend further cardiovascular workup and management. As for his transient expressive aphasia, dysarthria, and facial droop, he likely suffered a transient ischemic attack due to his uncontrolled hypertension. I will keep him on aspirin but I will increase his dose to 325 mg daily. I will order a fasting lipid panel and serum homocysteine level. I did review his computed tomography scan of the brain and EEG as mentioned above. His carotid Doppler didn't show moderate stenosis and he does follow with Dr. Ashley for this. Continue neuro checks. I will continue to follow with you. Further recommendations to follow. Time with Patient: Greater than 30
[2017-06-10] MEDS: DEXTROSE 5%-0.45% NACL 1,000 ML IV SCH (21:36)
--- NOTE | 2017-06-11 05:44 | EEG ---
DATE OF SERVICE: 06/10/2017 REASON FOR TESTING: Altered mental status, recent head injury. DESCRIPTION OF THE PROCEDURE: This EEG was performed using a 21-channel digital electroencephalograph, following international 10-20 system. DESCRIPTION OF THE RECORDING: From the beginning of the tracing and with the patient's eyes closed, the background rhythm was mostly consisting of 8 Hz alpha frequency in the posterior occipital leads. No obvious asymmetry is seen. Photic stimulation was performed with a minimal driving response seen. No pathological waves were elicited. Hyperventilation was not performed. Occasional movement artifacts and frequent muscle artifacts are seen. The patient remains awake throughout the tracing. No epileptiform discharges were seen. His EKG lead showed a regular rate and rhythm. INTERPRETATION: This awake EEG can be considered within normal limits. There was no asymmetry seen. No epileptiform discharges were noticed. The absence of epileptiform discharges does not rule out the diagnosis of epilepsy, therefore clinical correlation is recommended. MTDD
[2017-06-11 07:43] VITALS: BP 152/72; PULSE 65; TEMP 97.7
[2017-06-11 07:57] LABS: Basophils # (A) 0.1 k/uL (0-0.2); Basophils % (A) 1 %; CH 31.8; CHCM 35.8; Eosinophils # (A) 0.1 k/uL (0-0.7); Eosinophils % (A) 2 %; HCT 37.8 % (39.0-53.0); HDW 2.88; HGB 13.8 gm/dL (13.0-17.5); Luc # (Auto) 0.11; Luc % (Auto) 1; Lymphocytes # (A) 0.8 k/uL (1.0-4.8); Lymphocytes % (A) 9 %; MCH 32.6 pg (25.0-35.0); MCHC 36.6 g/dL (31.0-37.0); MCV 89.1 fL (80.0-100.0); Mean Platelet Volume 7.6; Monocytes # (A) 0.4 k/uL (0-1.0); Monocytes % (A) 6 %; Neutrophils # (A) 6.5 k/uL (1.3-7.7); Neutrophils % (A) 81 %; RBC 4.24 m/uL (4.30-5.90); RDW 13.9 % (11.5-15.5); WBC (Perox) 8.19
[2017-06-11 08:16] LABS: ALT 22 U/L (21-72); AST 23 U/L (17-59); Alkaline Phosphatase 53 U/L (38-126); Anion Gap 9 mmol/L; Blood Urea Nitrogen 15 mg/dL (9-20); Calcium 8.7 mg/dL (8.4-10.2); Carbon Dioxide 25 mmol/L (22-30); Chloride 98 mmol/L (98-107); Cholesterol 125 mg/dL (<200); Glucose 89 mg/dL (74-99); HDL Cholesterol 39 mg/dL (40-60); Non-African American GFR(MDRD) >60 (>60 ml/min/1.73 sqM); Sodium 132 mmol/L (137-145); Total Bilirubin 0.8 mg/dL (0.2-1.3); Total Protein 6.2 g/dL (6.3-8.2); Triglycerides 148 mg/dL (<150)
[2017-06-11] MEDS: PANTOPRAZOLE 40 MG TABLET PO SCH (08:57)
[2017-06-11] MEDS: ATORVASTATIN 20 MG TAB PO SCH (08:57)
[2017-06-11] MEDS ORDERED: hydrALAZINE HCL 25 MG TAB PO SCH (09:00)
[2017-06-11] MEDS ORDERED: ASPIRIN 325 MG TAB PO SCH (09:00)
[2017-06-11] MEDS: FINASTERIDE 5 MG TAB PO SCH (09:01)
[2017-06-11] MEDS: HYDROCHLOROTHIAZIDE 25 MG TAB PO SCH (09:01)
[2017-06-11] MEDS: METOCLOPRAMIDE 10 MG TAB PO SCH (09:01)
[2017-06-11] MEDS: ISOSORBIDE MONONITRATE ER 15 MG TAB PO SCH (09:02)
[2017-06-11] MEDS: METOPROLOL TARTRATE 25 MG TAB PO SCH (09:02)
--- NOTE | 2017-06-11 11:51 | P.DS ---
Providers Date of admission: 06/09/17 20:26 Attending physician: Mauri Flores Consults: 06/09/17 20:29 Consult Physician Urgent Consulting Provider: Ricky Feliz Consult Reason/Comments: headache Do you want consulting provider notified?: Yes, Notify in am Primary care physician: Armin Mckeon [facility] Course: 86-year-old male one of Dr. Mckeon's patient who was seen in the hospital in April for 2016 for syncopal episode was claimed to be related to dehydration and severe hypertension. Patient was hospitalized again 4 weeks earlier for chest pain ended up having an angiogram which showed intermediate in -stent stenosis involving the mid RCA seems to be in change from before and recommended to do medical management. With medication going up patient become more symptomatic with hypotension and such ended up changing his medication in April and patient felt slightly but better. Patient apparently had severe closed head trauma with a garage door hit his head causing severe trauma, he get knocked down on the floor, recurrent recover from it but did not feel good afterward Having symptoms on and off with increased headache and worsening symptoms. Patient was in to see Dr. Mckeon on 2016 was having trouble expressing himself with significant dysphagia did not feel well had severe intractable headache not controlled with typical medication. Per Dr. Mckeon was recommended to send patient to the emergency department at [facility] where was seen and evaluated CAT scan of the brain did not show any bleeding at the time. Patient blood pressure and vitals were quite but abnormal his blood pressure was as high as 216/93 with him not functioning well and had significant change in altered mental status change with severe intractable headache patient was hospitalized will be seen urology continue to monitor and bring the blood pressure down medication continue and start patient on his home meds and patient might need further workup neurology craig. 06/11: Today the patient was seen and evaluated, family is at the bedside. The patient reports that he is feeling a lot better and denies any headache and states headaches have resolved so far. CT of the brain showed generalized atrophy and small vessel ischemic changes, but nothing acute. Carotid Doppler showed 50-60% stenosis on the left side, unchanged from previous carotid Doppler , this is currently being managed on an outpatient basis with Dr. Ashley. Neurology consult appreciated. The patient also had an EEG which was within normal limits. There are no asymmetry seen and no epileptiform discharge were noted. The patient was started on hydralazine, his blood pressure did come down to 152/72, with heart rate of 65. Hydralazine will be added to his home medications for better blood pressure control. He will use Tylenol if his headaches return and if needed Excedrin Migraine. He will follow-up with Dr. Mckeon and Tray on an outpatient basis. Discharge diagnoses 1 CVA/TIA 2 close head trauma with concussion 3 altered mental status 4 urgent hypertension 5 hyperlipidemia 6 BPH 7 severe GERD 8 severe abnormal balance and gait The above impression and plan of care have been discussed and directed by signing physician. Aracelis Gerard nurse practitioner acting as scribe for signing physician. Patient Condition at Discharge: Stable Plan - Discharge Summary New Discharge Prescriptions: New Acetaminophen Tab [Tylenol] 650 mg PO Q6HR PRN tab PRN Reason: Mild Pain Or Fever > 100.5 Aspirin 325 mg PO DAILY tab hydrALAZINE HCL [Apresoline] 25 mg PO BID #60 tab Ibuprofen [Motrin] 400 mg PO Q6HR PRN tab PRN Reason: Mild Pain Or Fever > 100.5 Continue Pantoprazole Sodium 40 mg PO BID Metoprolol Tartrate [Lopressor] 25 mg PO TID Finasteride 5 mg PO DAILY Simvastatin [Zocor] 40 mg PO DAILY Metoclopramide [Reglan] 10 mg PO BID Nitroglycerin Sl Tabs [Nitrostat] 0.4 mg SUBLINGUAL Q5M PRN PRN Reason: Chest Pain Isosorbide Mononitrate ER [Imdur] 15 mg PO DAILY #0 Hydrochlorothiazide [Hydrodiuril] 25 mg PO DAILY Discontinued Aspirin 81 mg PO DAILY Discharge Medication List Finasteride 5 mg PO DAILY 04/12/14 [History] Metoprolol Tartrate [Lopressor] 25 mg PO TID 04/12/14 [History] Pantoprazole Sodium 40 mg PO BID 04/12/14 [History] Metoclopramide [Reglan] 10 mg PO BID 04/15/17 [History] Simvastatin [Zocor] 40 mg PO DAILY 04/15/17 [History] Nitroglycerin Sl Tabs [Nitrostat] 0.4 mg SUBLINGUAL Q5M PRN 05/03/17 [History] Isosorbide Mononitrate ER [Imdur] 15 mg PO DAILY #0 05/04/17 [Rx] Hydrochlorothiazide [Hydrodiuril] 25 mg PO DAILY 06/09/17 [History] Acetaminophen Tab [Tylenol] 650 mg PO Q6HR PRN tab 06/11/17 [Rx] Aspirin 325 mg PO DAILY tab 06/11/17 [Rx] Ibuprofen [Motrin] 400 mg PO Q6HR PRN tab 06/11/17 [Rx] hydrALAZINE HCL [Apresoline] 25 mg PO BID #60 tab 06/11/17 [Rx] Follow up Appointment(s)/Referral(s): Ricky Feliz MD [STAFF PHYSICIAN] - 1 Week (Dr. Feliz's office will call patient with an appoitment date and time.) Hoang Solorzano MD [STAFF PHYSICIAN] - 07/09/17 3:30 pm Armin Mckeon MD [Primary Care Provider] - 06/18/17 1:00 pm Patient Instructions/Handouts: Hydralazine (By mouth), Transient Ischemic Attack (DC), Acute Headache (DC), Hypertension (DC) Discharge Disposition: HOME SELF-CARE
--- NOTE | 2017-06-15 08:21 | CDI ---
In responding to this query, please exercise your independent professional judgment. The [facility] Coding Staff and Clinical Documentation Specialists appreciate your assistance in clarifying documentation, maintaining compliance with coding guidelines, accurately documenting patients condition and capturing severity of illness. The fact that a question is asked does not imply that any particular answer is desired or expected. Communication forms are a method of clarifying documentation and are not made part of the Legal Health Record. Thank you in advance for your clarification. Last Revision, September 2015 David Mckeon [address] [facility] [place] [address] Documentation Clarification Form Date: 06/15/2017 7:56:00 AM From: Ludivina Worthy Admit Date: 06/09/2017 8:26:00 PM Patient Name: Tigre Rodriguez Visit Number: [id number] Discharge Date: 06/11/17 Dr. Mauri Flores / Aracelis Gerard NP Patient was admitted with change in mental status, Per your discharge summary: principal diagnosis CVA/TIA. intractable headache, slurred speech, facial droop and balance gait issues. CT of brain showed nothing acute. Neurology consult: He likely suffered a transient ischemia attack due to his uncontrolled hypertension. In your opinion what is the most clinically appropriate diagnosis for this patient? CVA TIA OTHER explanation of clinical findings Unable to determine (no explanation for clinical findings) Please document addendum in your discharge summary in order to capture severity of illness and risk of mortality. Include clinical findings that support your diagnosis. FYI: Press F11 to launch patient chart. If you have a question about this query, please contact Halley Tobar, Senior Sous Chef, David Mckeon at [phone] betweeen 8am and 5pm. GARO
== END 2017-06-11 10:15 | disposition home or self-care (01) | DRG 69 ==
LOC: EC 16:08 → 5ONC 20:26
PROVIDERS: ADMIT Internal Medicine Geriatric Medicine; ATTEND Internal Medicine Geriatric Medicine
DX: G45.9 Transient cerebral ischemic attack, unspecified (principal); S06.0X9A Concussion with loss of consciousness of unspecified duration, initial encounter; R47.01 Aphasia; I11.0 Hypertensive heart disease with heart failure; I50.9 Heart failure, unspecified; G62.9 Polyneuropathy, unspecified; R29.810 Facial weakness; R13.10 Dysphagia, unspecified; K59.00 Constipation, unspecified; I65.22 Occlusion and stenosis of left carotid artery; I16.0 Hypertensive urgency; I25.10 Atherosclerotic heart disease of native coronary artery without angina pectoris; E78.5 Hyperlipidemia, unspecified; N40.0 Benign prostatic hyperplasia without lower urinary tract symptoms; K21.9 Gastro-esophageal reflux disease without esophagitis; Z87.891 Personal history of nicotine dependence; Z92.3 Personal history of irradiation; Z92.21 Personal history of antineoplastic chemotherapy; I25.2 Old myocardial infarction; M19.91 Primary osteoarthritis, unspecified site; Z95.5 Presence of coronary angioplasty implant and graft; Z98.42 Cataract extraction status, left eye; Z98.41 Cataract extraction status, right eye; Z96.1 Presence of intraocular lens; Z85.21 Personal history of malignant neoplasm of larynx; Z79.82 Long term (current) use of aspirin; Z79.899 Other long term (current) drug therapy
CPT/HCPCS: 36415; 70450; 71020; 80048; 80053; 80061; 81003; 82140; 82550; 82553; 82803; 83090; 83605; 83735; 84439; 84443; 84484; 85025; 85610; 85730; 93005; 93880; 95816; 96374; 96375; 96376; 99285

== ENCOUNTER 2018-04-27 16:18 | Inpatient (IN) | payer MEDICARE ==
[2018-04-27] MEDS ORDERED: SODIUM CHLORIDE 0.9% 1,000 ML IV STA (16:28)
[2018-04-27 17:06] LABS: Basophils # (A) 0.1 k/uL (0-0.2); Basophils % (A) 1 %; Eosinophils # (A) 0.2 k/uL (0-0.7); Eosinophils % (A) 3 %; HCT 43.2 % (39.0-53.0); HGB 14.7 gm/dL (13.0-17.5); Lymphocytes # (A) 0.8 k/uL (1.0-4.8); Lymphocytes % (A) 11 %; MCH 30.6 pg (25.0-35.0); MCHC 34.1 g/dL (31.0-37.0); MCV 89.6 fL (80.0-100.0); Mean Platelet Volume 6.7; Monocytes # (A) 0.5 k/uL (0-1.0); Monocytes % (A) 6 %; Neutrophils # (A) 5.9 k/uL (1.3-7.7); Neutrophils % (A) 78 %; Platelet Count 322 k/uL (150-450); RBC 4.81 m/uL (4.30-5.90); RDW 13.7 % (11.5-15.5); WBC 7.5 k/uL (3.8-10.6)
[2018-04-27 17:14] LABS: Albumin 4.5 g/dL (3.5-5.0); Calcium 9.1 mg/dL (8.4-10.2); Magnesium 1.9 mg/dL (1.6-2.3); Phosphorus 3.6 mg/dL (2.5-4.5); Potassium 4.3 mmol/L (3.5-5.1); Total Bilirubin 0.5 mg/dL (0.2-1.3); Total Protein 7.1 g/dL (6.3-8.2)
[2018-04-27 17:20] LABS: INR 1.1 (<1.2); Partial Thromboplastin Time 24.3 sec (22.0-30.0); Prothrombin Time 10.3 sec (9.0-12.0)
[2018-04-27 17:23] LABS: Creatine Kinase 91 U/L (55-170)
--- NOTE | 2018-04-27 17:25 | ED ---
General Adult HPI - General Chief complaint: Dizziness Stated complaint: Dizziness Time Seen by Provider: 04/27/18 16:27 Source: patient, RN notes reviewed, old records reviewed Mode of arrival: wheelchair Limitations: no limitations - History of Present Illness Initial comments: This is an 87-year-old male the ER for evaluation dizziness. Patient states he cannot catch his balance, room spinning around he feels lightheaded like he cannot pass out. Patient does have history of heart disease does have history of remote stroke or CVA. Patient states he is unable to ambulate, significant room was spinning around. Mild nauseous with no vomiting no headache. - Related Data Home Medications Medication Instructions Recorded Confirmed Finasteride 5 mg PO DAILY 04/12/14 06/09/17 Metoprolol Tartrate [Lopressor] 25 mg PO TID 04/12/14 04/27/18 Pantoprazole Sodium 40 mg PO BID 04/12/14 04/27/18 Metoclopramide [Reglan] 10 mg PO BID 04/15/17 04/27/18 Simvastatin [Zocor] 40 mg PO DAILY 04/15/17 04/27/18 Nitroglycerin Sl Tabs [Nitrostat] 0.4 mg SUBLINGUAL Q5M PRN 05/03/17 04/27/18 Hydrochlorothiazide [Hydrodiuril] 25 mg PO DAILY 06/09/17 04/27/18 Aspirin 325 mg PO HS 04/27/18 04/27/18 Previous Rx's Medication Instructions Recorded Isosorbide Mononitrate ER [Imdur] 15 mg PO DAILY #0 05/04/17 Acetaminophen Tab [Tylenol] 650 mg PO Q6HR PRN tab 06/11/17 hydrALAZINE HCL [Apresoline] 25 mg PO BID #60 tab 06/11/17 Allergies Allergy/AdvReac Type Severity Reaction Status Date / Time No Known Allergies Allergy Verified 04/27/18 16:41 Review of Systems ROS Statement: Those systems with pertinent positive or pertinent negative responses have been documented in the HPI. ROS Other: All systems not noted in ROS Statement are negative. 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 Ashley, constipation. wears depends. Last Myocardial Infarction Date:: 1988 History of Any Multi-Drug Resistant Organisms: None Reported Past Surgical History: Back Surgery Additional Past Surgical History / Comment(s): pacemaker, cardiac stent done at [facility] in , lumbar surgery 3, bilateral cataract removal and intraocular lens implants, colonoscopies Past Anesthesia/Blood Transfusion Reactions: No Reported Reaction Additional Past Anesthesia/Blood Transfusion Reaction / Comment(s): pt is but lives alone because his is in assisted living . pt is independant no assistive devices lives in a single level home no steps. no outside services recieved. no medical equipment . no past service. 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 Date of Last Stent Placement:: 1991 Past Psychological History: No Psychological Hx Reported Smoking Status: Former smoker Past Alcohol Use History: None Reported Past Drug Use History: None Reported - Past Family History Mother Family Medical History: No Reported History Additional Family Medical History / Comment(s): was killed in accident Father Additional Family Medical History / Comment(s): "heart problems" and brain cancer Brother(s) Additional Family Medical History / Comment(s): Patient does not have any brothers or sisters. Daughter(s) Additional Family Medical History / Comment(s): Patient has 2 sons and 2 daughters. One daughter has coronary artery disease. General Exam - General Exam Comments Initial Comments: NIH of 0 Limitations: no limitations General appearance: alert, in no apparent distress Head exam: Present: atraumatic, normocephalic, normal inspection Eye exam: Present: normal appearance, PERRL, EOMI. Absent: scleral icterus, conjunctival injection, periorbital swelling ENT exam: Present: normal exam, mucous membranes moist Neck exam: Present: normal inspection. Absent: tenderness, meningismus, lymphadenopathy Respiratory exam: Present: normal lung sounds bilaterally. Absent: respiratory distress, wheezes, rales, rhonchi, stridor Cardiovascular Exam: Present: regular rate, normal rhythm, normal heart sounds. Absent: systolic murmur, diastolic murmur, rubs, gallop, clicks GI/Abdominal exam: Present: soft, normal bowel sounds. Absent: distended, tenderness, guarding, rebound, rigid Extremities exam: Present: normal inspection, full ROM, normal capillary refill. Absent: tenderness, pedal edema, joint swelling, calf tenderness Back exam: Present: normal inspection Neurological exam: Present: alert, oriented X3, CN II-XII intact Psychiatric exam: Present: normal affect, normal mood Skin exam: Present: warm, dry, intact, normal color. Absent: rash Course Vital Signs 04/27/18 04/27/18 04/27/18 16:20 17:38 18:31 Temperature 98.4 F 98.1 F Pulse Rate 63 60 65 Respiratory 20 18 18 Rate Blood Pressure 145/67 140/73 140/66 O2 Sat by Pulse 98 97 97 Oximetry - Reevaluation(s) Reevaluation #1: 04/27/18 18:51 We did attempt daily patient who was unable to evaluate secondary to dizziness and ataxia Reevaluation #2: 04/27/18 18:51 Medical record is reviewed patient does have history of atherosclerosis EKG Findings - EKG Comments: EKG Findings:: EKG shows paced rhythm rate of 69, RI 342, QRS 190, QTc 540 Medical Decision Making - Medical Decision Making 87 male the ER for evaluation of dizziness vertigo, patient be admitted for evaluation regarding likely underlying CVA. - Lab Data Result diagrams: 04/27/18 16:53 04/27/18 16:53 Lab Results 04/27/18 04/27/18 04/27/18 Range/Units 16:53 16:53 16:53 WBC 7.5 (3.8-10.6) k/uL RBC 4.81 (4.30-5.90) m/uL Hgb 14.7 (13.0-17.5) gm/dL Hct 43.2 (39.0-53.0) % MCV 89.6 (80.0-100.0) fL MCH 30.6 (25.0-35.0) pg MCHC 34.1 (31.0-37.0) g/dL RDW 13.7 (11.5-15.5) % Plt Count 322 (150-450) k/uL Neutrophils % 78 % Lymphocytes % 11 % Monocytes % 6 % Eosinophils % 3 % Basophils % 1 % Neutrophils # 5.9 (1.3-7.7) k/uL Lymphocytes # 0.8 L (1.0-4.8) k/uL Monocytes # 0.5 (0-1.0) k/uL Eosinophils # 0.2 (0-0.7) k/uL Basophils # 0.1 (0-0.2) k/uL PT (9.0-12.0) sec INR (<1.2) APTT (22.0-30.0) sec Sodium 131 L (137-145) mmol/L Potassium 4.3 (3.5-5.1) mmol/L Chloride 91 L (98-107) mmol/L Carbon Dioxide 27 (22-30) mmol/L Anion Gap 13 mmol/L BUN 17 (9-20) mg/dL Creatinine 1.12 (0.66-1.25) mg/dL Est GFR (CKD-EPI)AfAm 69 (>60 ml/min/1.73 sqM) Est GFR (CKD-EPI)NonAf 60 (>60 ml/min/1.73 sqM) Glucose 104 H (74-99) mg/dL Calcium 9.1 (8.4-10.2) mg/dL Phosphorus 3.6 (2.5-4.5) mg/dL Magnesium 1.9 (1.6-2.3) mg/dL Total Bilirubin 0.5 (0.2-1.3) mg/dL AST 28 (17-59) U/L ALT 34 (21-72) U/L Alkaline Phosphatase 77 (38-126) U/L Total Creatine Kinase 91 (55-170) U/L CK-MB (CK-2) 3.5 H* (0.0-2.4) ng/mL CK-MB (CK-2) Rel Index 3.8 Troponin I <0.012 (0.000-0.034) ng/mL Total Protein 7.1 (6.3-8.2) g/dL Albumin 4.5 (3.5-5.0) g/dL Urine Color Urine Appearance (Clear) Urine pH (5.0-8.0) Ur Specific [place] (1.001-1.035) Urine Protein (Negative) Urine Glucose (UA) (Negative) Urine Ketones (Negative) Urine Blood (Negative) Urine Nitrite (Negative) Urine Bilirubin (Negative) Urine Urobilinogen (<2.0) mg/dL Ur Leukocyte Esterase (Negative) 04/27/18 04/27/18 Range/Units 16:53 17:26 WBC (3.8-10.6) k/uL RBC (4.30-5.90) m/uL Hgb (13.0-17.5) gm/dL Hct (39.0-53.0) % MCV (80.0-100.0) fL MCH (25.0-35.0) pg MCHC (31.0-37.0) g/dL RDW (11.5-15.5) % Plt Count (150-450) k/uL Neutrophils % % Lymphocytes % % Monocytes % % Eosinophils % % Basophils % % Neutrophils # (1.3-7.7) k/uL Lymphocytes # (1.0-4.8) k/uL Monocytes # (0-1.0) k/uL Eosinophils # (0-0.7) k/uL Basophils # (0-0.2) k/uL PT 10.3 (9.0-12.0) sec INR 1.1 (<1.2) APTT 24.3 (22.0-30.0) sec Sodium (137-145) mmol/L Potassium (3.5-5.1) mmol/L Chloride (98-107) mmol/L Carbon Dioxide (22-30) mmol/L Anion Gap mmol/L BUN (9-20) mg/dL Creatinine (0.66-1.25) mg/dL Est GFR (CKD-EPI)AfAm (>60 ml/min/1.73 sqM) Est GFR (CKD-EPI)NonAf (>60 ml/min/1.73 sqM) Glucose (74-99) mg/dL Calcium (8.4-10.2) mg/dL Phosphorus (2.5-4.5) mg/dL Magnesium (1.6-2.3) mg/dL Total Bilirubin (0.2-1.3) mg/dL AST (17-59) U/L ALT (21-72) U/L Alkaline Phosphatase (38-126) U/L Total Creatine Kinase (55-170) U/L CK-MB (CK-2) (0.0-2.4) ng/mL CK-MB (CK-2) Rel Index Troponin I (0.000-0.034) ng/mL Total Protein (6.3-8.2) g/dL Albumin (3.5-5.0) g/dL Urine Color Yellow Urine Appearance Clear (Clear) Urine pH 6.0 (5.0-8.0) Ur Specific [place] 1.013 (1.001-1.035) Urine Protein Negative (Negative) Urine Glucose (UA) Negative (Negative) Urine Ketones Negative (Negative) Urine Blood Negative (Negative) Urine Nitrite Negative (Negative) Urine Bilirubin Negative (Negative) Urine Urobilinogen <2.0 (<2.0) mg/dL Ur Leukocyte Esterase Negative (Negative) - Radiology Data Radiology results: report reviewed (CT brain negative for acute disease), image reviewed Disposition Clinical Impression: Dizziness, Dehydration, Vertigo, CVA (cerebral vascular accident), Ataxia Disposition: ADMITTED IP TO THIS [facility] Condition: Fair Is patient prescribed a controlled substance at d/c from ED?: No
[2018-04-27 17:31] LABS: Troponin I <0.012 ng/mL (0.000-0.034)
[2018-04-27 17:34] LABS: Appearance,Urine Clear (Clear); Bilirubin,Urine Negative (Negative); Blood,Urine Negative (Negative); Color,Urine Yellow; Glucose,Urine (UA) Negative (Negative); Ketones,Urine Negative (Negative); Leukocyte Esterase,Urine Negative (Negative); Nitrite,Urine Negative (Negative); Protein,Urine Negative (Negative); Specific Gravity,Urine 1.013 (1.001-1.035); Urobilinogen,Urine <2.0 mg/dL (<2.0)
[2018-04-27 17:57] LABS: Creatine Kinase MB 3.5 ng/mL (0.0-2.4)
--- NOTE | 2018-04-27 18:18 | CT ---
EXAMINATION TYPE: CT brain wo con DATE OF EXAM: 04/27/2018 COMPARISON: Prior head CT 06/09/2017 HISTORY: Dizziness CT DLP: 230.6 mGycm Automated exposure control for dose reduction was used. Helical imaging through the brain FINDINGS: Cerebral vascular calcifications are present. There is motion on the exam. Atrophy is present. Perive ntricular white matter shows low attenuation. No gross hemorrhage or hydrocephalus. IMPRESSION: STABLE EXAM. NO ACUTE ABNORMALITIES EVIDENT. Age-related changes of atrophy and chronic small vessel ischemia.
[2018-04-27] MEDS ORDERED: ASPIRIN 325 MG TAB PO STA (18:33)
[2018-04-27] MEDS: SODIUM CHLORIDE 0.9% 1,000 ML IV SCH (19:08)
[2018-04-27] MEDS ORDERED: NITROGLYCERIN SL TABS 0.4 MG TAB SUBLINGUAL PRN (21:47)
[2018-04-27] MEDS ORDERED: ACETAMINOPHEN TAB 325 MG TAB PO PRN (21:47)
[2018-04-27] MEDS: hydrALAZINE HCL 25 MG TAB PO SCH (22:54)
[2018-04-27] MEDS: METOPROLOL TARTRATE 25 MG TAB PO SCH (22:54)
[2018-04-27] MEDS: MECLIZINE 25 MG TAB PO SCH (22:55)
[2018-04-28 05:41] LABS: Cholesterol 157 mg/dL (<200); HDL Cholesterol 48 mg/dL (40-60); LDL Cholesterol,Calculated 76 mg/dL (0-99); Triglycerides 166 mg/dL (<150)
[2018-04-28] MEDS: PANTOPRAZOLE 40 MG TABLET PO SCH ×2 (06:06→17:40)
[2018-04-28] MEDS: SODIUM CHLORIDE 0.9% 1,000 ML IV SCH (08:57)
[2018-04-28] MEDS ORDERED: ASPIRIN 325 MG TAB PO SCH ×2 (09:00→21:00)
[2018-04-28] MEDS: HYDROCHLOROTHIAZIDE 25 MG TAB PO SCH (09:12)
[2018-04-28] MEDS: FINASTERIDE 5 MG TAB PO SCH (09:13)
[2018-04-28] MEDS: METOCLOPRAMIDE 10 MG TAB PO SCH ×2 (09:13→20:29)
[2018-04-28] MEDS: ISOSORBIDE MONONITRATE ER 15 MG TAB PO SCH (09:13)
[2018-04-28] MEDS: ATORVASTATIN 20 MG TAB PO SCH (09:13)
[2018-04-28] MEDS: METOPROLOL TARTRATE 25 MG TAB PO SCH ×3 (09:13→20:29)
[2018-04-28] MEDS: MECLIZINE 25 MG TAB PO SCH ×2 (09:13→20:28)
[2018-04-28] MEDS: hydrALAZINE HCL 25 MG TAB PO SCH ×2 (09:13→20:29)
--- NOTE | 2018-04-28 15:15 | P.HPIM ---
History of Present Illness H&P Date: 04/28/18 Chief Complaint: Dizziness This is an 87-year-old male patient of Dr. 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 patient who was seen in the hospital in April for 2016 for syncopal episode was claimed to be related to dehydration and severe hypertension. Patient was hospitalized again 4 weeks earlier for chest pain ended up having an angiogram which showed intermediate in-stent stenosis involving the mid RCA seems to be in change from before and recommended to do medical management. Patient was then admitted again in May 2017 with mental status changes, transient expressive aphasia, dysarthria and facial droop and headache thought to be related to TIA and uncontrolled hypertension and patient was seen by Dr. Feliz at that time. Patient now complains of dizziness which he states has been going on for 2 days and worsening. He denies any falls. He denies any headache, ringing in his ears, no cold symptoms, sore throat. No ear pain. His daughter states that he has had a few spells of this on and off in the past. He seems to be drinking adequately and has not been out in the heat. He denies any double vision or swallowing difficulty. Patient presented to [facility] emergency center. Blood pressure was 145/67, afebrile. EKG was a paced rhythm. Sodium 131 and chloride 91, blood sugar 104. Otherwise, CBC, renal function, liver function within normal limits. Troponin was 0.012. Urinalysis was negative. CAT scan of the brain showed no acute abnormalities. Age- related changes of atrophy and chronic small vessel ischemia. Patient was started on IV fluids, meclizine and consult with Dr. Irene. Patient has been seen by speech therapy and he is at baseline. No need for speech services. PT has recommended home with home care. Carotid ultrasound and echocardiogram ordered. Review of Systems All systems: negative Constitutional: Denies chills, Denies fatigue, Denies fever, Denies lethargy, Denies malaise, Denies poor appetite, Denies weakness Eyes: denies blurred vision, denies pain Ears: bilateral: decreased hearing (chronic), deny: ear discharge, earache, tinnitus Ears, nose, mouth and throat: Reports vertigo, Denies dental pain, Denies dysphagia, Denies headache, Denies hoarseness, Denies mouth pain, Denies nasal congestion, Denies sore throat Cardiovascular: Denies chest pain, Denies decreased exercise tolerance, Denies dyspnea on exertion, Denies edema, Denies leg edema, Denies lightheadedness, Denies shortness of breath, Denies syncope Respiratory: Denies as per HPI, Denies cough, Denies cough with sputum, Denies dyspnea, Denies excessive sputum, Denies hemoptysis, Denies home oxygen, Denies wheezing Gastrointestinal: Denies abdominal pain, Denies diarrhea, Denies loss of appetite, Denies nausea, Denies vomiting Genitourinary: Denies dysuria Musculoskeletal: Denies myalgias Integumentary: Denies pruritus, Denies rash, Denies wounds Neurological: Denies change in speech, Denies confusion, Denies double vision, Denies numbness, Denies weakness Psychiatric: Denies anxiety, Denies depression Endocrine: Denies fatigue, Denies weight change Past Medical History Past Medical History: Cancer, Heart Failure, GERD/Reflux, Hyperlipidemia, Hypertension, Myocardial Infarction (LA), Osteoarthritis (OA), Syncope Additional Past Medical History / Comment(s): (per pt's daughter-approx 10 days ago tried to beat the garage door-door came down on his head.)- Peripheral neuropathy, 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 Ashley, constipation. wears depends. Last Myocardial Infarction Date:: 1988 History of Any Multi-Drug Resistant Organisms: None Reported Past Surgical History: Back Surgery Additional Past Surgical History / Comment(s): pacemaker, cardiac stent done at [facility] in , lumbar surgery 3, bilateral cataract removal and intraocular lens implants, colonoscopies Past Anesthesia/Blood Transfusion Reactions: No Reported Reaction Additional Past Anesthesia/Blood Transfusion Reaction / Comment(s): pt is independant no assistive devices lives in a single level home no steps. no outside services recieved. no past service. 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 Date of Last Stent Placement:: 1991 Past Psychological History: No Psychological Hx Reported Additional Psychological History / Comment(s): Patient is but lives alone because his is in assisted living. Patient is independent. No assistive devices. Patient lives in a single level home, no steps, no outside services received. No medical equipment. No past medical service. 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 smoked 1 ppd Past Drug Use History: None Reported - Past Family History Mother Family Medical History: No Reported History Additional Family Medical History / Comment(s): was killed in accident Father Additional Family Medical History / Comment(s): "heart problems" and brain cancer Brother(s) Additional Family Medical History / Comment(s): Patient does not have any brothers or sisters. Daughter(s) Additional Family Medical History / Comment(s): Patient has 2 sons and 2 daughters. One daughter has coronary artery disease. Medications and Allergies Home Medications Medication Instructions Recorded Confirmed Type Finasteride 5 mg PO DAILY 04/12/14 06/09/17 History Metoprolol Tartrate [Lopressor] 25 mg PO TID 04/12/14 04/27/18 History Pantoprazole Sodium 40 mg PO BID 04/12/14 04/27/18 History Metoclopramide [Reglan] 10 mg PO BID 04/15/17 04/27/18 History Simvastatin [Zocor] 40 mg PO DAILY 04/15/17 04/27/18 History Nitroglycerin Sl Tabs [Nitrostat] 0.4 mg SUBLINGUAL Q5M PRN 05/03/17 04/27/18 History Isosorbide Mononitrate ER [Imdur] 15 mg PO DAILY #0 05/04/17 04/27/18 Rx Hydrochlorothiazide [Hydrodiuril] 25 mg PO DAILY 06/09/17 04/27/18 History Acetaminophen Tab [Tylenol] 650 mg PO Q6HR PRN tab 06/11/17 04/27/18 Rx hydrALAZINE HCL [Apresoline] 25 mg PO BID #60 tab 06/11/17 04/27/18 Rx Aspirin 325 mg PO HS 04/27/18 04/27/18 History Allergies Allergy/AdvReac Type Severity Reaction Status Date / Time No Known Allergies Allergy Verified 04/27/18 16:41 Physical Exam Vitals: Vital Signs Temp Pulse Pulse Resp BP BP Pulse Ox 04/28/18 08:00 97.0 F L 64 18 141/60 95 04/28/18 04:00 96.4 F L 59 L 16 130/61 94 L 04/28/18 00:00 97.4 F L 65 18 148/69 96 04/27/18 19:33 18 141/84 90 L 04/27/18 19:12 65 18 161/83 97 04/27/18 18:33 18 140/65 96 04/27/18 18:31 98.1 F 65 18 140/66 97 04/27/18 17:38 60 18 140/73 97 04/27/18 16:20 98.4 F 63 20 145/67 98 Intake and Output 04/27/18 04/28/18 04/28/18 22:59 06:59 14:59 Intake Total 300 Output Total 1 800 Balance 299 -800 Intake: Intake, IV Titration 300 Amount Sodium Chloride 0.9% 1, 300 000 ml @ 100 mls/hr IV . Q10H [facility] Rx#:[id number] Output: Urine 1 800 Other: Voiding Method Toilet Toilet Urinal Urinal # Voids 150 Weight 92.986 kg 95.1 kg - Constitutional General appearance: average body habitus, cooperative, no acute distress, no severe distress - EENT Eyes: PERRLA, normal appearance - Respiratory Respiratory: bilateral: CTA, diminished - Cardiovascular Rhythm: regular Heart sounds: normal: S1, S2 Abnormal Heart Sounds: systolic murmur - Gastrointestinal General gastrointestinal: normal bowel sounds, soft, no tenderness - Neurologic Neurologic: CNII-XII intact - Psychiatric Psychiatric: A&O x's 3, appropriate affect, intact judgment & insight Results CBC & Chem 7: 04/27/18 16:53 04/27/18 16:53 Labs: Abnormal Lab Results - Last 24 Hours (Table) 04/27/18 04/27/18 04/27/18 Range/Units 16:53 16:53 16:53 Lymphocytes # 0.8 L (1.0-4.8) k/uL Sodium 131 L (137-145) mmol/L Chloride 91 L (98-107) mmol/L Glucose 104 H (74-99) mg/dL CK-MB (CK-2) 3.5 H* (0.0-2.4) ng/mL Triglycerides (<150) mg/dL 04/27/18 Range/Units 16:53 Lymphocytes # (1.0-4.8) k/uL Sodium (137-145) mmol/L Chloride (98-107) mmol/L Glucose (74-99) mg/dL CK-MB (CK-2) (0.0-2.4) ng/mL Triglycerides 166 H (<150) mg/dL Microbiology - Last 24 Hours (Table) 04/27/18 17:26 Urine Culture - Preliminary Urine,Voided Thrombosis Risk Factor Assmnt - DVT/VTE Prophylaxis DVT/VTE Prophylaxis: Pharmacologic Prophylaxis ordered - Choose All That Apply Any of the Below Risk Factors Present?: Yes Each Factor Represents 1 point: Obesity (BMI >25) Other Risk Factors: Yes Each Risk Factor Represents 3 Points: Age 75 years or older Thrombosis Risk Factor Assessment Total Risk Factor Score: 4 Thrombosis Risk Factor Assessment Level: Moderate Risk Assessment and Plan Plan: 1. 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 Patient started on meclizine. Neurology consult. Carotid ultrasound and echocardiogram ordered. PT, OT, speech therapies noted. 2. Hypertension. Continue Lopressor 25 mg 3 times daily and hydrochlorothiazide 25 mg daily, hydralazine 25 mg twice daily. 3. Hyperlipidemia. Continue simvastatin. 4. Benign prostatic hypertrophy. Continue finasteride 5 mg daily. 5. History of coronary artery disease status post stent placement in the , stable. 6. Bradycardia status post pacemaker. 7. Right carotid artery disease of 80% and left 70% followed by Dr. Ashley. 8. 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 9. Gastroesophageal reflux disease and GI prophylaxis. Continue Protonix. 6. DVT prophylaxis, heparin. Patient will be admitted to the hospital for a minimum of 2 nights stay. Discharge plan: Return home with homecare. Impression and plan of care have been directed as dictated by the signing physician. Anneliese Rawls nurse practitioner acting as scribe for signing physician.
--- NOTE | 2018-04-28 15:24 | US ---
EXAMINATION TYPE: US carotid duplex BILAT DATE OF EXAM: 04/28/2018 COMPARISON: US 2017 CLINICAL HISTORY: dizziness. Dizziness, light headedness, weakness, exam done portable EXAM MEASUREMENTS: RIGHT: Peak Systolic Velocity (PSV) cm/sec ----- Right CCA: 97.0 ----- Right ICA: 88.3 ----- Right ECA: 148.5 ICA/CCA ratio: 0.9 RIGHT: End Diastole cm/sec ----- Right CCA: 10.9 ----- Right ICA: 20.6 ----- Right ECA: 0.0 LEFT: Peak Systolic Velocity (PSV) cm/sec ----- Left CCA: 92.0 ----- Left ICA: 211.1 ----- Left ECA: 120.9 ICA/CCA ratio: 2.3 LEFT: End Diastole cm/sec ----- Left CCA: 10.3 ----- Left ICA: 60.7 ----- Left ECA: 0.0 VERTEBRALS (direction of flow): Right Vertebral: Antegrade Left Vertebral: Antegrade Rhythm: Normal Atherosclerotic changes noted bilaterally, elevated velocities: right proximal ECA, left proximal mid and distal ICA, left ICA/CCA ratio 2.3, 50 to 69% stenosis. Atheromatous plaquing is present bilaterally. Doppler waveforms have some turbulent flow bilaterally. IMPRESSION: 1. Moderate narrowing of the left internal carotid artery estimated between 50 and 69%. 2. Mild narrowing of less than 50% within the right internal carotid artery. Criteria for Assigning % of Stenosis / Diameter reduction (Estimation based on the indirect measurements of the internal carotid artery velocities (ICA PSV). 1. Normal (no stenosis)=ICA PSV < 125 cm/s: ratio < 2.0: ICA EDV<40 cm/s. 2. Less than 50% stenosis=ICA PSV < 125 cm/s: ratio < 2.0: ICA EDV<40 cm/s. 3. 50 to 69% stenosis=ICA PSV of 125 to 230 cm/s: ration 2.0 ? 4.0: ICA EDV 40-100 cm/s. 4. Greater than 70% stenosis to near occlusion= ICA PSV > 230 cm/s: ratio > 4.0: ICA EDV > 100 cm/s. 5. Near occlusion= ICA PSV velocities may be low or undetectable: variable ratio and ICA EDV. 6. Total occlusion=unable to detect flow.
[2018-04-28 16:15] VITALS: RESP 16
[2018-04-28] MEDS: HEPARIN SODIUM,PORCINE 5,000 UNIT/ML 1 ML VIAL SQ SCH ×2 (17:40→23:21)
--- NOTE | 2018-04-28 19:35 | P.CNNES ---
History of Present Illness Consult date: 04/28/18 History of Present Illness: The patient is an 87-year-old white male who states that yesterday he was standing and suddenly L dizzy. He was unable to walk and had to stagger. He felt off balance and lightheaded. His daughter brought him to the emergency room with these symptoms. The symptoms lasted for about 4 hours. The patient' s daughter reports that the patient has been having some sense of imbalance for the last 2 days. There has been no falls. The patient's daughter reports that his blood pressure fluctuates. He sometimes has a very high pressure and it suddenly will drop. He had such an episode about a year ago when he was admitted with similar spells of lightheadedness and dehydration. She states he still feels lightheaded when he gets up to walk. He denied any vertigo. He denied any associated neurologic symptoms such as focal weakness numbness visual changes or speech disturbance. He has a history of right carotid stenosis about 80% for which she is being followed outpatient by Dr. Long Review of Systems Ears, nose, mouth and throat: Denies headache, Denies sore throat Cardiovascular: Denies chest pain, Denies shortness of breath Respiratory: Denies cough Musculoskeletal: Denies myalgias Integumentary: Denies pruritus, Denies rash Neurological: Denies numbness, Denies weakness Psychiatric: Denies anxiety, Denies depression Past Medical History Past Medical History: Cancer, Heart Failure, GERD/Reflux, Hyperlipidemia, Hypertension, Myocardial Infarction ([place]), Osteoarthritis (OA), Syncope Additional Past Medical History / Comment(s): (per pt's daughter-approx 10 days ago tried to beat the garage door-door came down on his head.)- Peripheral neuropathy, 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 Ashley, constipation. wears depends. Last Myocardial Infarction Date:: 1988 History of Any Multi-Drug Resistant Organisms: None Reported Past Surgical History: Back Surgery Additional Past Surgical History / Comment(s): pacemaker, cardiac stent done at [facility] in 1980s, lumbar surgery 3, bilateral cataract removal and intraocular lens implants, colonoscopies Past Anesthesia/Blood Transfusion Reactions: No Reported Reaction Additional Past Anesthesia/Blood Transfusion Reaction / Comment(s): pt is independant no assistive devices lives in a single level home no steps. no outside services recieved. no past service. pt worked as [employer] until [facility]. Date of Last Stent Placement:: 1991 Past Psychological History: No Psychological Hx Reported Additional Psychological History / Comment(s): Patient is but lives alone because his is in assisted living. Patient is independent. No assistive devices. Patient lives in a single level home, no steps, no outside services received. No medical equipment. No past medical service. 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 smoked 1 ppd Past Drug Use History: None Reported - Past Family History Mother Family Medical History: No Reported History Additional Family Medical History / Comment(s): was killed in accident Father Additional Family Medical History / Comment(s): "heart problems" and brain cancer Brother(s) Additional Family Medical History / Comment(s): Patient does not have any brothers or sisters. Daughter(s) Additional Family Medical History / Comment(s): Patient has 2 sons and 2 daughters. One daughter has coronary artery disease. Medications and Allergies Home Medications Medication Instructions Recorded Confirmed Type Finasteride 5 mg PO DAILY 04/12/14 06/09/17 History Metoprolol Tartrate [Lopressor] 25 mg PO TID 04/12/14 04/27/18 History Pantoprazole Sodium 40 mg PO BID 04/12/14 04/27/18 History Metoclopramide [Reglan] 10 mg PO BID 04/15/17 04/27/18 History Simvastatin [Zocor] 40 mg PO DAILY 04/15/17 04/27/18 History Nitroglycerin Sl Tabs [Nitrostat] 0.4 mg SUBLINGUAL Q5M PRN 05/03/17 04/27/18 History Isosorbide Mononitrate ER [Imdur] 15 mg PO DAILY #0 05/04/17 04/27/18 Rx Hydrochlorothiazide [Hydrodiuril] 25 mg PO DAILY 06/09/17 04/27/18 History Acetaminophen Tab [Tylenol] 650 mg PO Q6HR PRN tab 06/11/17 04/27/18 Rx hydrALAZINE HCL [Apresoline] 25 mg PO BID #60 tab 06/11/17 04/27/18 Rx Aspirin 325 mg PO HS 04/27/18 04/27/18 History Allergies Allergy/AdvReac Type Severity Reaction Status Date / Time No Known Allergies Allergy Verified 04/27/18 16:41 Physical Examination - Vital Signs Vital Signs: Vital Signs Temp Pulse Resp BP Pulse Ox 04/28/18 16:00 97.7 F 69 16 104/51 93 L 04/28/18 12:00 67 14 112/53 93 L 04/28/18 08:00 97.0 F L 64 18 141/60 95 04/28/18 04:00 96.4 F L 59 L 16 130/61 94 L 04/28/18 00:00 97.4 F L 65 18 148/69 96 04/27/18 19:33 18 141/84 90 L Intake and Output 04/28/18 04/28/18 04/28/18 06:59 14:59 22:59 Intake Total 630 420 Output Total 800 560 200 Balance -800 70 220 Intake: Oral 630 420 Output: Urine 800 560 200 Other: Voiding Method Toilet Toilet Toilet Urinal Urinal Urinal Weight 95.1 kg - Constitutional General appearance: average body habitus - EENT EENT: PERRL - Respiratory Respiratory: lungs clear - Cardiovascular Cardiovascular: regular rate - Integumentary Integumentary: normal - Neurologic Mental status: He was awake alert and oriented . He had no aphasia or dysarthria. Cranial nerve examination: PERRL, EOMI, VFF, V1/V2/V3 grossly intact, face symmetric, tongue midline, intact shoulder shrug Speech examination: intact Sensorimotor examination: intact Detailed motor examination: grossly full strength in all extremities Reflexes: 2+: knee - Psychiatric Psychiatric: mood/affect appropriate Results - Laboratory Findings CBC and BMP: 04/27/18 16:53 04/27/18 16:53 Abnormal Lab Findings: Abnormal Labs 04/27/18 04/27/18 04/27/18 16:53 16:53 16:53 Lymphocytes # 0.8 L Sodium 131 L Chloride 91 L Glucose 104 H CK-MB (CK-2) 3.5 H* Triglycerides 04/27/18 16:53 Lymphocytes # Sodium Chloride Glucose CK-MB (CK-2) Triglycerides 166 H Assessment and Plan (1) Pre-syncope Current Visit: Yes Status: Acute SNOMED Code(s): 549358827 Plan: The patient is a 87-year-old man admitted to the hospital with presyncopal episodes. There was no loss of consciousness. There is no focal neurologic symptoms such as focal weakness numbness visual changes or speech disturbance. There was no vertigo. The patient symptoms are likely related to blood pressure issues. Also he does have a history of right carotid stenosis by 80%. Recommend check or orthostatic blood pressure changes. is on aspirin area and he had a CAT scan of the brain which did not show any acute findings.
[2018-04-29] MEDS: PANTOPRAZOLE 40 MG TABLET PO SCH (06:41)
[2018-04-29] MEDS: ISOSORBIDE MONONITRATE ER 15 MG TAB PO SCH (08:15)
[2018-04-29] MEDS: hydrALAZINE HCL 25 MG TAB PO SCH (08:15)
[2018-04-29] MEDS: HYDROCHLOROTHIAZIDE 25 MG TAB PO SCH (08:15)
[2018-04-29] MEDS: ATORVASTATIN 20 MG TAB PO SCH (08:15)
[2018-04-29] MEDS: METOCLOPRAMIDE 10 MG TAB PO SCH (08:15)
[2018-04-29] MEDS: HEPARIN SODIUM,PORCINE 5,000 UNIT/ML 1 ML VIAL SQ SCH (08:15)
[2018-04-29] MEDS: FINASTERIDE 5 MG TAB PO SCH (08:16)
[2018-04-29] MEDS: MECLIZINE 25 MG TAB PO SCH (08:17)
[2018-04-29] MEDS: METOPROLOL TARTRATE 25 MG TAB PO SCH (08:17)
--- NOTE | 2018-04-29 08:27 | ECHOF ---
Referral Reason:dizziness MEASUREMENTS -------- HEIGHT: 180.3 cm WEIGHT: 94.8 kg BP: 112/53 RVIDd: 3.3 cm (< 3.3) IVSd: 1.3 cm (0.6 - 1.1) LVIDd: 3.4 cm (3.9 - 5.3) LVPWd: 1.3 cm (0.6 - 1.1) IVSs: 1.8 cm LVIDs: 2.6 cm LVPWs: 1.5 cm LA Diam: 3.4 cm (2.7 - 3.8) LAESV Index (A-L): 24.81 ml/m Ao Diam: 3.6 cm (2.0 - 3.7) AV Cusp: 2.0 cm (1.5 - 2.6) MV EXCURSION: 15.618 mm (> 18.000) MV EF SLOPE: 41 mm/s (70 - 150) EPSS: 0.9 cm MV E Bull: 0.76 m/s MV DecT: 206 ms MV A Bull: 1.13 m/s MV E/A Ratio: 0.67 AV maxP.45 mmHg AV meanP.49 mmHg RAP: 5.00 mmHg RVSP: 30.18 mmHg FINDINGS -------- Paced rhythm. This was a technically good study. The left ventricular size is normal. There is mild concentric left ventricular hypertrophy. Overa ll left ventricular systolic function is normal with, an EF between 55 - 60 %. The right ventricle is mildly enlarged. Normal LA size by volume 22+/-6 ml/m2. The right atrium is normal in size. There is mild aortic valve sclerosis. There is mild aortic stenosis present. Peak/mean gradient a cross the Aortic Valve is 15.45mmHg / 8.49mmHg. The mitral valve leaflets are mildly thickened. There is trace to mild mitral regurgitation. Mild tricuspid regurgitation present. Right ventricular systolic pressure is normal at < 35 mmHg. Moderate pulmonic regurgitation. The aortic root size is normal. Normal inferior vena cava with normal inspiratory collapse consistent with estimated right atrial pre ssure of 5 mmHg. There is no pericardial effusion. CONCLUSIONS -------- 1. Paced rhythm. 2. This was a technically good study. 3. The left ventricular size is normal. 4. There is mild concentric left ventricular hypertrophy. 5. Overall left ventricular systolic function is normal with, an EF between 55 - 60 %. 6. The right ventricle is mildly enlarged. 7. Normal LA size by volume 22+/-6 ml/m2. 8. There is mild aortic valve sclerosis. 9. There is mild aortic stenosis present. 10. Peak/mean gradient across the Aortic Valve is 15.45mmHg / 8.49mmHg. 11. The mitral valve leaflets are mildly thickened. 12. There is trace to mild mitral regurgitation. 13. Mild tricuspid regurgitation present. 14. Right ventricular systolic pressure is normal at < 35 mmHg. 15. Moderate pulmonic regurgitation. 16. The aortic root size is normal. 17. Normal inferior vena cava with normal inspiratory collapse consistent with estimated right atrial pressure of 5 mmHg. 18. There is no pericardial effusion. SILVER WRAPPER: Merle Sauceda RDCS
[2018-04-29 11:21] VITALS: BP 133/66; PULSE 86; TEMP 97.7
--- NOTE | 2018-04-29 12:50 | P.DS ---
Providers Date of admission: 04/27/18 18:34 Expected date of discharge: 04/29/18 Attending physician: Mary Kate Bolivar Consults: 04/27/18 18:33 Consult Physician Routine Consulting Provider: Kemi Irene Consult Reason/Comments: vertigo Do you want consulting provider notified?: Yes [facility] Course: This is an 87-year-old male patient of Dr. 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 patient who was seen in the hospital in April for 2016 for syncopal episode was claimed to be related to dehydration and severe hypertension. Patient was hospitalized again 4 weeks earlier for chest pain ended up having an angiogram which showed intermediate in-stent stenosis involving the mid RCA seems to be in change from before and recommended to do medical management. Patient was then admitted again in May 2017 with mental status changes, transient expressive aphasia, dysarthria and facial droop and headache thought to be related to TIA and uncontrolled hypertension and patient was seen by Dr. Feliz at that time. Patient now complains of dizziness which he states has been going on for 2 days and worsening. He denies any falls. He denies any headache, ringing in his ears, no cold symptoms, sore throat. No ear pain. His daughter states that he has had a few spells of this on and off in the past. He seems to be drinking adequately and has not been out in the heat. He denies any double vision or swallowing difficulty. Patient presented to [facility] emergency center. Blood pressure was 145/67, afebrile. EKG was a paced rhythm. Sodium 131 and chloride 91, blood sugar 104. Otherwise, CBC, renal function, liver function within normal limits. Troponin was 0.012. Urinalysis was negative. CAT scan of the brain showed no acute abnormalities. Age- related changes of atrophy and chronic small vessel ischemia. Patient was started on IV fluids, meclizine and consult with Dr. Irene. Patient has been seen by speech therapy and he is at baseline. No need for speech services. PT has recommended home with home care. Carotid ultrasound and echocardiogram ordered. 04/29: Added ultrasound shows moderate narrowing of the left internal carotid artery of 50-69% and mild narrowing of less than 50% on the right internal carotid artery. Echocardiogram reveals EF of 55-60%, mild concentric left hypertrophy, mild aortic valve sclerosis, mild aortic stenosis, mild mitral regurgitation, mild tricuspid regurgitation, moderate pulmonary regurgitation. Patient has been seen by Dr. Irene with concern that symptoms were related to blood pressure issues. Plan is to discontinue Reglan completely and decrease hydrochlorothiazide to 12.5 mg daily. Patient is encouraged to increase water intake. Patient states his dizziness is much improved. Patient will be discharged home today in stable condition. Discharge Diagnoses: 1. 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 2. Hypertension. 3. Hyperlipidemia. 4. Benign prostatic hypertrophy. 5. History of coronary artery disease status post stent placement in the , stable. 6. Bradycardia status post pacemaker. 7. Right carotid artery disease of 80% and left 70% followed by Dr. Ashley. 8. 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 9. Gastroesophageal reflux disease Discharge plan: Return home with [facility]. Impression and plan of care have been directed as dictated by the signing physician. Anneliese Rawls nurse practitioner acting as scribe for signing physician. Patient Condition at Discharge: Good Plan - Discharge Summary New Discharge Prescriptions: New Meclizine [Antivert] 25 mg PO BID #60 tab Continue Pantoprazole Sodium 40 mg PO BID Metoprolol Tartrate [Lopressor] 25 mg PO TID Finasteride 5 mg PO DAILY Simvastatin [Zocor] 40 mg PO DAILY Nitroglycerin Sl Tabs [Nitrostat] 0.4 mg SUBLINGUAL Q5M PRN PRN Reason: Chest Pain Isosorbide Mononitrate ER [Imdur] 15 mg PO DAILY #0 Acetaminophen Tab [Tylenol] 650 mg PO Q6HR PRN tab PRN Reason: Mild Pain Or Fever > 100.5 hydrALAZINE HCL [Apresoline] 25 mg PO BID #60 tab Aspirin 325 mg PO HS Changed Hydrochlorothiazide [Hydrodiuril] 12.5 mg PO DAILY #0 Discontinued Metoclopramide [Reglan] 10 mg PO BID Discharge Medication List Finasteride 5 mg PO DAILY 04/12/14 [History] Metoprolol Tartrate [Lopressor] 25 mg PO TID 04/12/14 [History] Pantoprazole Sodium 40 mg PO BID 04/12/14 [History] Simvastatin [Zocor] 40 mg PO DAILY 04/15/17 [History] Nitroglycerin Sl Tabs [Nitrostat] 0.4 mg SUBLINGUAL Q5M PRN 05/03/17 [History] Isosorbide Mononitrate ER [Imdur] 15 mg PO DAILY #0 05/04/17 [Rx] Acetaminophen Tab [Tylenol] 650 mg PO Q6HR PRN tab 06/11/17 [Rx] hydrALAZINE HCL [Apresoline] 25 mg PO BID #60 tab 06/11/17 [Rx] Aspirin 325 mg PO HS 04/27/18 [History] Hydrochlorothiazide [Hydrodiuril] 12.5 mg PO DAILY #0 04/29/18 [Rx] Meclizine [Antivert] 25 mg PO BID #60 tab 04/29/18 [Rx] Follow up Appointment(s)/Referral(s): [facility], [NON-STAFF] - Armin Mckeon MD [Primary Care Provider] - 05/06/18 10:30 am () Patient Instructions/Handouts: Dizziness (ED) Discharge Disposition: HOME WITH HOME HEALTH SERVICES
[2018-04-30] MEDS ORDERED: HYDROCHLOROTHIAZIDE 12.5 MG CAP PO SCH (09:00)
--- NOTE | 2018-05-10 08:07 | CDI ---
Last Revision, October 2017 Documentation Clarification Form Date: 05/10/18 From: Mariah Woods Phone: If you have a question regarding this query, please contact Halley Tobar at [phone] between 8am and 5pm Admit Date: 04/27/2018 6:34:00 PM Patient Name: Tigre Rodriguez Visit Number: [id number] Discharge Date: 04/29/18 ATTENTION: The Clinical Documentation Specialists (CDI) and [facility] Coding Staff appreciate your assistance in clarifying documentation. Please respond to the clarification below the line at the bottom and electronically sign. The CDI & [facility] Coding staff will review the response and follow-up if needed. Please note: Queries are made part of the Legal Health Record. If you have any questions, please contact the author of this message via ITS. Dr. Mary Kate Bolivar Heart failure is documented in the past history of the ED note, consult note and H&P. History/Risk Factors: Patient has hypertension, CAD, history of DC and has a had coronary angioplasty with Echocardiogram Results: Overall left ventricular systolic function is normal with an EF between 55 - 60%. Treatment: Patient's home meds include hydrALAZINE HCL and Lopressor. In your professional opinion, can you please clarify the type of CHF if known? Systolic Heart Failure: Diastolic Heart Failure: Systolic & Diastolic Heart Failure: Unable to Determine Other, please specify No heart failure ___ MTDD
== END 2018-04-29 13:32 | disposition home health service (06) | DRG 156 ==
LOC: EC 16:18 → 6SEL 18:34
PROVIDERS: ADMIT Internal Medicine; ATTEND Internal Medicine
DX: H93.3X9 Disorders of unspecified acoustic nerve (principal); E78.5 Hyperlipidemia, unspecified; E86.0 Dehydration; I08.3 Combined rheumatic disorders of mitral, aortic and tricuspid valves; I25.10 Atherosclerotic heart disease of native coronary artery without angina pectoris; I25.2 Old myocardial infarction; K21.9 Gastro-esophageal reflux disease without esophagitis; N40.0 Benign prostatic hyperplasia without lower urinary tract symptoms; G62.9 Polyneuropathy, unspecified; K59.00 Constipation, unspecified; M19.90 Unspecified osteoarthritis, unspecified site; I65.23 Occlusion and stenosis of bilateral carotid arteries; Z79.82 Long term (current) use of aspirin; Z79.899 Other long term (current) drug therapy; I11.9 Hypertensive heart disease without heart failure; Z86.73 Personal history of transient ischemic attack (TIA), and cerebral infarction without residual deficits; Z85.21 Personal history of malignant neoplasm of larynx; Z92.21 Personal history of antineoplastic chemotherapy; Z92.3 Personal history of irradiation; Z87.891 Personal history of nicotine dependence; Z95.0 Presence of cardiac pacemaker; Z96.1 Presence of intraocular lens; Z98.42 Cataract extraction status, left eye; Z98.41 Cataract extraction status, right eye; Z95.5 Presence of coronary angioplasty implant and graft; Z80.8 Family history of malignant neoplasm of other organs or systems; Z82.49 Family history of ischemic heart disease and other diseases of the circulatory system
CPT/HCPCS: 36415; 70450; 80053; 80061; 81003; 82550; 82553; 83735; 84100; 84484; 85025; 85610; 85730; 87086; 93005; 93306; 93880; 94760; 96360; 96361; 99285

== ENCOUNTER 2018-12-24 08:33 | Inpatient (IN) | payer MEDICARE ==
[2018-12-24] MEDS ORDERED: HYDROcodone/APAP 5-325MG 1 EACH TAB PO STA (09:10)
[2018-12-24 09:23] LABS: Basophils # (A) 0.1 k/uL (0-0.2); Basophils % (A) 1 %; Eosinophils # (A) 0.3 k/uL (0-0.7); Eosinophils % (A) 4 %; HCT 41.4 % (39.0-53.0); HGB 14.2 gm/dL (13.0-17.5); Lymphocytes # (A) 0.6 k/uL (1.0-4.8); Lymphocytes % (A) 7 %; MCH 29.9 pg (25.0-35.0); MCHC 34.4 g/dL (31.0-37.0); MCV 87.1 fL (80.0-100.0); Mean Platelet Volume 6.6; Monocytes # (A) 0.4 k/uL (0-1.0); Monocytes % (A) 5 %; Neutrophils % (A) 82 %; Platelet Count 306 k/uL (150-450); RBC 4.75 m/uL (4.30-5.90); RDW 15.2 % (11.5-15.5); WBC 8.5 k/uL (3.8-10.6)
[2018-12-24 09:31] LABS: Partial Thromboplastin Time 23.9 sec (22.0-30.0); Prothrombin Time 10.4 sec (9.0-12.0)
[2018-12-24 09:40] LABS: Albumin 3.9 g/dL (3.5-5.0); Calcium 9.4 mg/dL (8.4-10.2); Magnesium 1.9 mg/dL (1.6-2.3); Potassium 4.6 mmol/L (3.5-5.1); Total Bilirubin 0.6 mg/dL (0.2-1.3); Total Protein 6.5 g/dL (6.3-8.2)
[2018-12-24 09:49] LABS: Creatine Kinase 96 U/L (55-170)
--- NOTE | 2018-12-24 09:58 | XR ---
EXAMINATION TYPE: XR chest 2V DATE OF EXAM: 12/24/2018 COMPARISON: 06/09/2017 HISTORY: Shortness of breath TECHNIQUE: Frontal and lateral views of the chest are obtained. FINDINGS: Scattered senescent parenchymal changes noted. Hyperinflation compatible with COPD. Scattered areas of nodularity appear to have occurred in the interval. Correlate for metastatic disea se. Scattered areas of infiltrate also appreciated. Heart size is stable. Mediastinal structures are stable and grossly unremarkable. No evidence for hilar prominence. Degenerative changes dorsal spine. IMPRESSION: 1. Scattered areas of nodularity appear to have occurred in the interval. Correlate for metastatic di sease. Scattered areas of infiltrate also appreciated.
--- NOTE | 2018-12-24 09:58 | ED ---
Back Pain HPI - General Chief Complaint: Back Pain/Injury Stated Complaint: back pain Time Seen by Provider: 12/24/18 08:44 Source: patient, RN notes reviewed Mode of arrival: ambulatory Limitations: no limitations - History of Present Illness Initial Comments: This is an 88-year-old male presents emergency Department with chief complaint of upper back pain. Patient states started in the middle of the night approximately around 2 AM. Patient states the pain has not resolved. Patient states he believes he may have injured it during the night. Patient denies chest pain, shortness of breath. Patient states the pain is worse with movement but denies any upper extremity weakness, paresthesias. Patient denies any head or neck pain. Patient states she's never had anything like this before he does have a history of low back pain. Patient denies any associated nausea vomiting diarrhea constipation. He has not taken anything recently for the pain. - Related Data Home Medications Medication Instructions Recorded Confirmed Finasteride 5 mg PO DAILY 04/12/14 12/24/18 Metoprolol Tartrate [Lopressor] 25 mg PO TID 04/12/14 12/24/18 Pantoprazole Sodium 40 mg PO BID 04/12/14 12/24/18 Simvastatin [Zocor] 40 mg PO DAILY 04/15/17 12/24/18 Nitroglycerin Sl Tabs [Nitrostat] 0.4 mg SUBLINGUAL Q5M PRN 05/03/17 12/24/18 Aspirin 325 mg PO HS 04/27/18 12/24/18 Previous Rx's Medication Instructions Recorded Acetaminophen Tab [Tylenol] 650 mg PO Q6HR PRN tab 06/11/17 Hydrochlorothiazide [Hydrodiuril] 12.5 mg PO DAILY #30 cap 04/29/18 Allergies Allergy/AdvReac Type Severity Reaction Status Date / Time No Known Allergies Allergy Verified 12/24/18 08:52 Review of Systems ROS Statement: Those systems with pertinent positive or pertinent negative responses have been documented in the HPI. ROS Other: All systems not noted in ROS Statement are negative. 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 wears depends. Last Myocardial Infarction Date:: 1988 History of Any Multi-Drug Resistant Organisms: None Reported Past Surgical History: Back Surgery Additional Past Surgical History / Comment(s): pacemaker, cardiac stent done at [facility] in 1980s, lumbar surgery 3, bilateral cataract removal and intraocular lens implants, colonoscopies Past Anesthesia/Blood Transfusion Reactions: No Reported Reaction Additional Past Anesthesia/Blood Transfusion Reaction / Comment(s): pt is independant no assistive devices lives in a single level home no steps. no outside services recieved. no past service. 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 Date of Last Stent Placement:: 1991 Past Psychological History: No Psychological Hx Reported Smoking Status: Former smoker Past Alcohol Use History: None Reported Past Drug Use History: None Reported - Past Family History Mother Family Medical History: No Reported History Additional Family Medical History / Comment(s): was killed in accident Father Additional Family Medical History / Comment(s): "heart problems" and brain cancer Brother(s) Additional Family Medical History / Comment(s): Patient does not have any brothers or sisters. Daughter(s) Additional Family Medical History / Comment(s): Patient has 2 sons and 2 daughters. One daughter has coronary artery disease. General Exam Limitations: no limitations General appearance: alert, in no apparent distress Head exam: Present: atraumatic, normocephalic, normal inspection Eye exam: Present: normal appearance, PERRL, EOMI. Absent: scleral icterus, conjunctival injection, periorbital swelling ENT exam: Present: normal exam, normal oropharynx, mucous membranes moist, TM's normal bilaterally, normal external ear exam Neck exam: Present: normal inspection, full ROM. Absent: tenderness, meningismus, lymphadenopathy Respiratory exam: Present: normal lung sounds bilaterally. Absent: respiratory distress, wheezes, rales, rhonchi, stridor Cardiovascular Exam: Present: regular rate, normal rhythm, normal heart sounds. Absent: systolic murmur, diastolic murmur, rubs, gallop, clicks GI/Abdominal exam: Present: soft, normal bowel sounds. Absent: distended, tenderness, guarding, rebound, rigid Extremities exam: Present: normal inspection, full ROM, normal capillary refill. Absent: tenderness, pedal edema, joint swelling, calf tenderness Back exam: Present: normal inspection, full ROM. Absent: tenderness (No tenderness over the area pain reported by patient), paraspinal tenderness, vertebral tenderness Neurological exam: Present: alert, oriented X3, CN II-XII intact, reflexes normal. Absent: motor sensory deficit Course Vital Signs 12/24/18 08:39 Temperature 97.7 F Pulse Rate 62 Respiratory 16 Rate Blood Pressure 108/67 O2 Sat by Pulse 94 L Oximetry Medical Decision Making - Medical Decision Making 88-year-old male presented for thoracic back pain. This was not reproducible back pain lab work, EKG, chest x-ray was initially ordered. Found to have multiple Lung nodule CT of the chest was obtained which shows multiple Nodules, lymphadenopathy concern for lymphoma versus metastatic cancer he does have a history of laryngeal cancer patient will be admitted the hospital for oncology evaluation, pain control - Lab Data Result diagrams: 12/24/18 09:07 12/24/18 09:07 Lab Results 12/24/18 12/24/18 12/24/18 Range/Units 09:07 09:07 09:07 WBC 8.5 (3.8-10.6) k/uL RBC 4.75 (4.30-5.90) m/uL Hgb 14.2 (13.0-17.5) gm/dL Hct 41.4 (39.0-53.0) % MCV 87.1 (80.0-100.0) fL MCH 29.9 (25.0-35.0) pg MCHC 34.4 (31.0-37.0) g/dL RDW 15.2 (11.5-15.5) % Plt Count 306 (150-450) k/uL Neutrophils % 82 % Lymphocytes % 7 % Monocytes % 5 % Eosinophils % 4 % Basophils % 1 % Neutrophils # 7.0 (1.3-7.7) k/uL Lymphocytes # 0.6 L (1.0-4.8) k/uL Monocytes # 0.4 (0-1.0) k/uL Eosinophils # 0.3 (0-0.7) k/uL Basophils # 0.1 (0-0.2) k/uL PT (9.0-12.0) sec INR (<1.2) APTT (22.0-30.0) sec Sodium 132 L (137-145) mmol/L Potassium 4.6 (3.5-5.1) mmol/L Chloride 98 (98-107) mmol/L Carbon Dioxide 27 (22-30) mmol/L Anion Gap 7 mmol/L BUN 19 (9-20) mg/dL Creatinine 1.34 H (0.66-1.25) mg/dL Est GFR (CKD-EPI)AfAm 55 (>60 ml/min/1.73 sqM) Est GFR (CKD-EPI)NonAf 48 (>60 ml/min/1.73 sqM) Glucose 92 (74-99) mg/dL Calcium 9.4 (8.4-10.2) mg/dL Magnesium 1.9 (1.6-2.3) mg/dL Total Bilirubin 0.6 (0.2-1.3) mg/dL AST 25 (17-59) U/L ALT 24 (21-72) U/L Alkaline Phosphatase 140 H (38-126) U/L Total Creatine Kinase 96 (55-170) U/L CK-MB (CK-2) 2.9 H (0.0-2.4) ng/mL CK-MB (CK-2) Rel Index 3.0 Troponin I <0.012 (0.000-0.034) ng/mL Total Protein 6.5 (6.3-8.2) g/dL Albumin 3.9 (3.5-5.0) g/dL Lipase 162 (23-300) U/L 12/24/18 Range/Units 09:07 WBC (3.8-10.6) k/uL RBC (4.30-5.90) m/uL Hgb (13.0-17.5) gm/dL Hct (39.0-53.0) % MCV (80.0-100.0) fL MCH (25.0-35.0) pg MCHC (31.0-37.0) g/dL RDW (11.5-15.5) % Plt Count (150-450) k/uL Neutrophils % % Lymphocytes % % Monocytes % % Eosinophils % % Basophils % % Neutrophils # (1.3-7.7) k/uL Lymphocytes # (1.0-4.8) k/uL Monocytes # (0-1.0) k/uL Eosinophils # (0-0.7) k/uL Basophils # (0-0.2) k/uL PT 10.4 (9.0-12.0) sec INR 1.0 (<1.2) APTT 23.9 (22.0-30.0) sec Sodium (137-145) mmol/L Potassium (3.5-5.1) mmol/L Chloride (98-107) mmol/L Carbon Dioxide (22-30) mmol/L Anion Gap mmol/L BUN (9-20) mg/dL Creatinine (0.66-1.25) mg/dL Est GFR (CKD-EPI)AfAm (>60 ml/min/1.73 sqM) Est GFR (CKD-EPI)NonAf (>60 ml/min/1.73 sqM) Glucose (74-99) mg/dL Calcium (8.4-10.2) mg/dL Magnesium (1.6-2.3) mg/dL Total Bilirubin (0.2-1.3) mg/dL AST (17-59) U/L ALT (21-72) U/L Alkaline Phosphatase (38-126) U/L Total Creatine Kinase (55-170) U/L CK-MB (CK-2) (0.0-2.4) ng/mL CK-MB (CK-2) Rel Index Troponin I (0.000-0.034) ng/mL Total Protein (6.3-8.2) g/dL Albumin (3.5-5.0) g/dL Lipase (23-300) U/L - EKG Data EKG Comments: EKG for 9:14 pacer rhythm at 67 GA 300 QRS 200/QTC 502/530 Disposition Clinical Impression: Thoracic back pain, Mediastinal lymphadenopathy, Lung nodules Narrative: Lymphoma versus metastatic cancer Disposition: ADMITTED IP TO THIS HOSP Condition: Fair Referrals: Armin Mckeon MD [Primary Care Provider] - 1-2 days
[2018-12-24 10:02] LABS: Creatine Kinase MB 2.9 ng/mL (0.0-2.4); Troponin I <0.012 ng/mL (0.000-0.034)
[2018-12-24] MEDS ORDERED: RX INFO: IV CONTRAST WAS GIVEN 1 EACH MISC MISCELLANE PRN (10:12)
--- NOTE | 2018-12-24 10:59 | CT ---
EXAMINATION TYPE: CT chest w con DATE OF EXAM: 12/24/2018 COMPARISON: 04/15/2017 HISTORY: severe back pain, abn CXR, history of laryngeal CA CT DLP: 429 mGycm, Automated exposure control for dose reduction was used. CONTRAST: Performed injected with 80 mL of Isovue 300. TECHNIQUE: Axial images were obtained at 5 mm thick sections. Reconstructed images are reviewed on [employer] computer in the coronal plane. FINDINGS: Portion of the thyroid visualized is normal. There are multiple enlarged superior mediastinal lymph nodes. The largest measures approximately 1.8 cm in transverse dimension. There are additional enlarged periaortic and pretracheal lymph nodes. A r ight hilar lymph node may be present. Left supraclavicular lymphadenopathy appears to be present with in the transverse dimension 1.4 cm. Additional clavicular adenopathy is present to 1.8 cm. There is an enlarged retrocrural lymph node measuring 1.0 cm which is enlarged. Additional retrocrura l adenopathy is present. Some celiac axis adenopathy appears to be present within the abdomen. There appears to be some dependent compressive atelectasis within the lungs. There is a calcified gra nuloma within the lingula measuring 0.5 cm. Series 201 image 33. Additional peripheral granuloma whic h is calcified measures 0.7 cm. Series 201 image 28. There is some nodularity within the right midlun g best identified on lung windows measuring 1.0 cm. This may be vascular or associated. Series 201 im age 24. There is a nodule within the left apex measuring 1.1 cm. Series 201 image 15. The ascending aorta diameter at the level of the main pulmonary artery is 3.3 cm. The main pulmonary artery diameter at the bifurcation is 2.[address] sections are obtained through the upper abdomen. Findings in addition to the enlarged timothy opathy discussed above are not evident. Thoracic spine as visualized appears within normal limits. IMPRESSIONS: 1. Interval development of multiple very prominent lymphadenopathy within the superior mediastinum, l eft supraclavicular region, retrocrural, and celiac axis level. Consider lymphoma within the differen tial. Given the patient's previous history of metastatic disease should be considered although the di stribution appears somewhat unusual. 2. There appear to be soft tissue nodules within the bilateral lung apices.
[2018-12-24] MEDS ORDERED: MORPHINE SULFATE 4 MG/ML SYRINGE IV PRN (11:24)
[2018-12-24] MEDS ORDERED: ONDANSETRON 4 MG/2 ML VIAL IVP PRN (11:24)
[2018-12-24] MEDS ORDERED: ACETAMINOPHEN TAB 325 MG TAB PO PRN ×2 (11:24→12:01)
[2018-12-24] MEDS ORDERED: NALOXONE 0.4 MG/ML 1 ML VIAL IV PRN (11:24)
[2018-12-24] MEDS ORDERED: IOPAMIDOL-300 CONTRAST 30 ML VIAL (ORAL USE) PO PRN (12:00)
[2018-12-24] MEDS ORDERED: NITROGLYCERIN SL TABS 0.4 MG TAB SUBLINGUAL PRN (12:01)
--- NOTE | 2018-12-24 13:37 | P.HPIM ---
History of Present Illness H&P Date: 12/24/18 This is an 87-year-old male patient of Dr. Mckeon, Dr. 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 patient who was seen in the hospital in April for 2016 for syncopal episode was claimed to be related to dehydration and severe hypertension. Patient was hospitalized again 4 weeks earlier for chest pain ended up having an angiogram which showed intermediate in -stent stenosis involving the mid RCA seems to be in change from before and recommended to do medical management. Patient was then admitted again in May 2017 with mental status changes, transient expressive aphasia, dysarthria and facial droop and headache thought to be related to TIA and uncontrolled hypertension and patient was seen by Dr. Feliz at that time. He was then admitted March 2018 for dizziness related to vestibular neuritis. Regarding laryngeal cancer which was treated in 2006, patient did have lung nodules at that time and went to [facility] for biopsy which found not to be cancerous. The nodules were initially found on PET scan. Patient states that he has been following with Dr. Messina for the past year regarding back pain and has overall weakness with previous history of 3 back surgeries done in the and . He does use a walker on and off but no recent falls. He denies any weakness or numbness to his lower extremities. He denies any shortness of breath. He does have a remote history of smoking 1 pack per day for 20 years and quit 35 years ago. He has had a cough with some, no difficulty swallowing meats. He denies having any blood in the stools. He has had weight loss of 7 pounds over the past 6-12 months unintentional. Patient now complains of upper back pain is in the middle of the night it started getting very bad at 2 in the morning. The pain did not go away. He had no fall or injury to it. Pain is worse with any movement, no weakness to the extremities. Patient came into [facility] emergency center for evaluation. He was afebrile, vital signs were stable, pulse ox 94% on room air. EKG is a paced rhythm. CBC essentially normal. Sodium 132, creatinine 1.34, alkaline phosphatase 140 other liver function tests within normal limits. Troponin negative. Lipase normal. CAT scan of the chest with contrast revealed a large superior - no lymph nodes area and largest is 1.8 cm. There are additional enlarged. Oral aortic and pretracheal lymph nodes. Right hilar lymph node may be present. Left subclavicular lymphadenopathy appears to be present 1.4 cm. Additional clavicle adenopathy is present up to 1.8 cm. Enlarged retrocrural lymph node measuring 1 cm with additional adenopathy present. Some celiac axis adenopathy within the abdomen. Calcified granulomas. Nodularity within the right mid lung may be vascular. Nodule in the left apex measuring 1.1 cm. CAT scan of the abdomen pelvis with oral contrast and oncology consult requested. Discussed with patient and his daughter at the bedside that he will require a biopsy. Patient last took full- strength aspirin December 23 in the evening. Review of Systems All systems: negative Constitutional: Reports weight loss, Denies anorexia, Denies chills, Denies fatigue, Denies fever, Denies malaise, Denies night sweats, Denies poor appetite Eyes: denies blurred vision, denies pain Ears, nose, mouth and throat: Denies dysphagia, Denies headache, Denies hoarseness, Denies sore throat, Denies vertigo Cardiovascular: Denies chest pain, Denies dyspnea on exertion, Denies edema, Denies lightheadedness, Denies shortness of breath, Denies syncope Respiratory: Reports cough, Reports cough with sputum, Denies dyspnea, Denies excessive sputum, Denies hemoptysis, Denies home oxygen, Denies wheezing Gastrointestinal: Denies abdominal pain, Denies constipation, Denies diarrhea, Denies hematemesis, Denies loss of appetite, Denies melena, Denies nausea, Denies vomiting Genitourinary: Denies dysuria Musculoskeletal: Denies frequent falls, Denies gait dysfunction, Denies muscle weakness, Denies myalgias, Denies shooting arm pain, Denies shooting leg pain Integumentary: Denies pruritus, Denies rash, Denies wounds Neurological: Denies aphasia, Denies change in mentation, Denies confusion, Denies gait dysfunction, Denies numbness, Denies vertigo, Denies weakness Psychiatric: Denies anxiety, Denies depression Endocrine: Denies fatigue, Denies weight change Past Medical History Past Medical History: Cancer, Heart Failure, GERD/Reflux, Hyperlipidemia, Hypertension, Myocardial Infarction ([place]), Osteoarthritis ([place]), Syncope Additional Past Medical History / Comment(s): (per pt's daughter-approx 10 days ago tried to beat the garage door-door came down on his head.)- Peripheral neuropathy, 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 Ashley, constipation. wears depends. Last Myocardial Infarction Date:: 1988 History of Any Multi-Drug Resistant Organisms: None Reported Past Surgical History: Back Surgery Additional Past Surgical History / Comment(s): pacemaker, cardiac stent done at [facility] in , lumbar surgery 3, bilateral cataract removal and intraocular lens implants, colonoscopies Past Anesthesia/Blood Transfusion Reactions: No Reported Reaction Additional Past Anesthesia/Blood Transfusion Reaction / Comment(s): pt is independant no assistive devices lives in a single level home no steps. no outside services recieved. no past service. 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 Date of Last Stent Placement:: 1991 Past Psychological History: No Psychological Hx Reported Smoking Status: Former smoker Past Alcohol Use History: None Reported Additional Past Alcohol Use History / Comment(s): She was a smoker one pack per day for 20 years and quit 35 years ago. He has very rare alcohol intake. Past Drug Use History: None Reported - Past Family History Mother Family Medical History: No Reported History Additional Family Medical History / Comment(s): was killed in accident Father Additional Family Medical History / Comment(s): "heart problems" and brain cancer. Father had history of myocardial infarction and pacemaker placement. Brother(s) Additional Family Medical History / Comment(s): Patient does not have any brothers or sisters. Daughter(s) Additional Family Medical History / Comment(s): Patient has 2 sons and 2 daughters. One daughter has coronary artery disease. Medications and Allergies Home Medications Medication Instructions Recorded Confirmed Type Finasteride 5 mg PO DAILY 04/12/14 12/24/18 History Metoprolol Tartrate [Lopressor] 25 mg PO TID 04/12/14 12/24/18 History Pantoprazole Sodium 40 mg PO BID 04/12/14 12/24/18 History Simvastatin [Zocor] 40 mg PO DAILY 04/15/17 12/24/18 History Nitroglycerin Sl Tabs [Nitrostat] 0.4 mg SUBLINGUAL Q5M PRN 05/03/17 12/24/18 History Acetaminophen Tab [Tylenol] 650 mg PO Q6HR PRN tab 06/11/17 12/24/18 Rx Aspirin 325 mg PO HS 04/27/18 12/24/18 History Hydrochlorothiazide [Hydrodiuril] 12.5 mg PO DAILY #30 cap 04/29/18 12/24/18 Rx Allergies Allergy/AdvReac Type Severity Reaction Status Date / Time No Known Allergies Allergy Verified 12/24/18 08:52 Physical Exam Vitals: Vital Signs Temp Pulse Resp BP Pulse Ox 12/24/18 08:39 97.7 F 62 16 108/67 94 L Intake and Output 12/23/18 12/24/18 12/24/18 22:59 06:59 14:59 Other: Weight 88.904 kg General appearance: average body habitus, cooperative, no acute distress, no severe distress - EENT Eyes: PERRLA, normal appearance Left supraclavicular lymph node palpated - Respiratory Respiratory: bilateral: CTA, diminished - Cardiovascular Rhythm: regular Heart sounds: normal: S1, S2 Abnormal Heart Sounds: systolic murmur - Gastrointestinal General gastrointestinal: normal bowel sounds, soft, no tenderness - Neurologic Neurologic: CNII-XII intact - Psychiatric Psychiatric: A&O x's 3, appropriate affect, intact judgment & insight Results CBC & Chem 7: 12/24/18 09:07 12/24/18 09:07 Labs: Abnormal Lab Results - Last 24 Hours (Table) 12/24/18 12/24/18 12/24/18 Range/Units 09:07 09:07 09:07 Lymphocytes # 0.6 L (1.0-4.8) k/uL Sodium 132 L (137-145) mmol/L Creatinine 1.34 H (0.66-1.25) mg/dL Alkaline Phosphatase 140 H (38-126) U/L CK-MB (CK-2) 2.9 H (0.0-2.4) ng/mL Thrombosis Risk Factor Assmnt - DVT/VTE Prophylaxis DVT/VTE Prophylaxis: Mechanical Prophylaxis ordered Assessment and Plan Plan: 1. Thoracic back pain with history of chronic back pain under the care of Dr. Messina. 2. Choking/coughing sensation with difficulty bringing phlegm up secondary to compression of mediastinal lymph node. 3. Mediastinal lymph node enlargement with diffuse lymphadenopathy concerning for metastatic disease. CAT scan of the abdomen and pelvis with oral contrast ordered. Consult with Dr. Damon. Patient will need biopsy done. Await recommendations from oncology. Patient's last dose of aspirin was on December 23 in the evening. 4. Coronary artery disease status post stent placement in the , stable. No complaints of chest pain, normal troponin. 5. Hypertension. Continue Lopressor 25 mg 3 times daily and hydrochlorothiazide 12.5 mg daily. 6. Hyperlipidemia. Continue simvastatin. 7. Benign prostatic hypertrophy. Continue finasteride 5 mg daily. 8. History of coronary artery disease status post stent placement in the , stable. 9. Bradycardia status post pacemaker. 10. Right carotid artery disease of 80% and left 70% followed by Dr. Ashley. 11. 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 12. Gastroesophageal reflux disease and GI prophylaxis. Continue Protonix. 13. DVT prophylaxis, SCDs and NITHIN hose. Patient will be admitted to the hospital for a minimum of 2 nights stay. Discharge plan: Return home most likely. Impression and plan of care have been directed as dictated by the signing physician. Anneliese Rawls nurse practitioner acting as scribe for signing physician.
--- NOTE | 2018-12-24 14:25 | CT ---
EXAMINATION TYPE: CT abdomen pelvis wo con DATE OF EXAM: 12/24/2018 COMPARISON: CT chest performed same date INDICATION: Metastatic disease DLP: 646.9 mGycm, Automated exposure control for dose reduction was used. CONTRAST: 0 mL of Isovue 300. Study performed with Oral Contrast TECHNIQUE: Axial images were obtained from above the diaphragm to the pubic rami in the axial plane a t 5 mm thick sections. Reconstructed images are reviewed on the computer in the coronal plane. FINDINGS: Limited CT sections are obtained the lung bases. Scattered nodules are identified at the lung bases. Coronary artery calcification is present.. CT ABDOMEN: Lymphadenopathy: Retrocrural adenopathy is again evident. Periaortic retrocaval adenopathy is present . Some adenopathy in the celiac axis region is evident. Adenopathy adjacent to the right common and e xternal iliac vessels is present. Obturator canal and iliac chain adenopathy on the right is present. These are very large measuring approximately 5 cm in transverse dimension. Liver: Normal Spleen: Scattered calcified granuloma within the spleen. Pancreas: Normal Adrenal glands: The adrenal glands are normal. Gallbladder: Normal Kidneys: No masses are evident. No hydronephrosis is present. There is a 4.3 cm posterior inferior right renal cyst. Cortical renal cysts present on the posterior mid inferior left kidney measuring 1. 3 cm. Prior contrast is administered and there is still excretion within the renal collecting system at this time. Aorta: Vascular calcification is within the aorta. There is some mild fusiform prominence of the dis chito abdominal aorta measuring 2.6 cm AP dimension. Inferior vena cava: Where visualized appears within normal limits. Adenopathy and nonintravenous cont rast study limits portions of the evaluation. CT PELVIS: Loops of bowel within the abdomen and pelvis are normal. There are loops of bowel which are incom pletely distended or lack oral contrast limiting their evaluation. Appendix: Not identified. Urinary bladder: Contrast filled. Genitourinary structures: Enlarged prostate with calcification. Osseous structures: No suspicious lytic or sclerotic lesions. IMPRESSIONS: 1. Markedly enlarged right iliac chain lymph nodes with large lymph nodes in the periaortic, retroca syed, celiac axis region within the abdomen. Mediastinal adenopathy is noted on the CT performed [facility] same date. Differential diagnosis should include lymphoma.
[2018-12-24 14:28] VITALS: BMI 27.3
[2018-12-24 15:26] LABS: Uric Acid 7.1 mg/dL (3.5-8.5)
[2018-12-24] MEDS: METOPROLOL TARTRATE 25 MG TAB PO SCH ×2 (16:48→21:23)
--- NOTE | 2018-12-24 17:31 | P.CONS ---
History of Present Illness - Reason for Consult Consult date: 12/24/18 Lymphoma versus metastatastatic Cancer Requesting physician: Yves Moncada - Chief Complaint Back Pain - History of Present Illness Mr. Rodriguez is a pleasant male patient with known history of laryngeal carcinoma in 2006. Treated with chemo and radiation by Dr. lugo. He presents to hospital with increased back pain which kept him up overnight. He he underwent a CT of his chest abdomen and pelvis which showed diffuse adenopathy in the past he has had a biopsy up PET avid adenopathy in the chest which was a fine- needle biopsy which was apparently negative at that time. His daughter has been diagnosed with sarcoid. Because of his diffuse adenopathy hematology has been asked to evaluate. Intermittent B symptoms positive night sweats positive right lower extremity edema. No weight loss fevers chills Review of Systems A 14 point review of systems assessed and completed and all negative except HPI Past Medical History Past Medical History: Coronary Artery Disease (CAD), Cancer, Heart Failure, CVA/ TIA, GERD/Reflux, Hyperlipidemia, Hypertension, Myocardial Infarction ([place]), Osteoarthritis (OA), Prostate Disorder, Syncope, Vascular Disorder Additional Past Medical History / Comment(s): 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 Last Myocardial Infarction Date:: possible [place] in 1991 during cardiac cath. History of Any Multi-Drug Resistant Organisms: None Reported Past Surgical History: Back Surgery Additional Past Surgical History / Comment(s): 2012 pacemaker, PCI with stents 1992 at [facility], suspension microlarygoscopy, lung biopsy at [facility], colonoscopy, L elbow surgery, lumbar surgery x3, bilateral cataract removals/lens implants. Past Anesthesia/Blood Transfusion Reactions: No Reported Reaction Additional Past Anesthesia/Blood Transfusion Reaction / Comm: pt is independant no assistive devices lives in a single level home no steps. no outside services recieved. no past service. 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 Date of Last Stent Placement:: 1991 Smoking Status: Former smoker - Past Family History Mother Family Medical History: No Reported History Additional Family Medical History / Comment(s): was killed in accident Father Additional Family Medical History / Comment(s): "heart problems" and brain cancer. Father had history of myocardial infarction and pacemaker placement. Brother(s) Additional Family Medical History / Comment(s): Patient does not have any brothers or sisters. Daughter(s) Additional Family Medical History / Comment(s): Patient has 2 sons and 2 daughters. One daughter has coronary artery disease. Medications and Allergies Home Medications Medication Instructions Recorded Confirmed Type Finasteride 5 mg PO DAILY 04/12/14 12/24/18 History Metoprolol Tartrate [Lopressor] 25 mg PO TID 04/12/14 12/24/18 History Pantoprazole Sodium 40 mg PO BID 04/12/14 12/24/18 History Simvastatin [Zocor] 40 mg PO DAILY 04/15/17 12/24/18 History Nitroglycerin Sl Tabs [Nitrostat] 0.4 mg SUBLINGUAL Q5M PRN 05/03/17 12/24/18 History Acetaminophen Tab [Tylenol] 650 mg PO Q6HR PRN tab 06/11/17 12/24/18 Rx Aspirin 325 mg PO HS 04/27/18 12/24/18 History Hydrochlorothiazide [Hydrodiuril] 12.5 mg PO DAILY #30 cap 04/29/18 12/24/18 Rx Allergies Allergy/AdvReac Type Severity Reaction Status Date / Time No Known Allergies Allergy Verified 12/24/18 08:52 Physical Exam Vitals: Vital Signs Temp Pulse Resp BP Pulse Ox 12/24/18 12:00 60 17 137/69 95 12/24/18 08:39 97.7 F 62 16 108/67 94 L Intake and Output 12/23/18 12/24/18 12/24/18 22:59 06:59 14:59 Other: Weight 88.904 kg Gen: A;lert and oriented, NAD Head NC, NT Neck Supple, trachea midline Lymphadenopathy no cervical and supraclavicaular on palpation, shotty inguinal Lungs CTA, No increased effort Heart: reg reg Abdomen: Soft, ND, NT Extremities: rle edema Neuro: non focal otoe-[place] Results CBC & Chem 7: 12/24/18 09:07 12/24/18 09:07 Labs: Abnormal Lab Results - Last 24 Hours (Table) 12/24/18 12/24/18 12/24/18 Range/Units 09:07 09:07 09:07 Lymphocytes # 0.6 L (1.0-4.8) k/uL Sodium 132 L (137-145) mmol/L Creatinine 1.34 H (0.66-1.25) mg/dL Alkaline Phosphatase 140 H (38-126) U/L CK-MB (CK-2) 2.9 H (0.0-2.4) ng/mL Assessment and Plan Plan: Assessment and Recommendations: 1. Diffuse Adenopathy through mediastinum, left supraclavicular and retrocral on CT scan: - Check LDH and Uric Acid - Unlikely related to history of laryngeal cancer, Ideally will need Excisional biopsy of Lymph node as if this is lymphoma excisional biopsy is preferred. - Will consult General Surgery to evaluate for inpatient versus outpatient excisional biopsy. - We will also check further inflammation markers within AMA, SPEP, RA, immunoglobulins IgA IgM IgG, angiotension converting enzyme for the diagnosis assistance of sarcoidosis, Lambda Free Light Chains, Miley Free Light Chains, thank you for allowing us to participate in the care of this patient will follow along with you. Physician attestation. I've completed the full history and physical this patient and agree with the above dictation by Dominic Cordova. Dictated as described
[2018-12-24] MEDS: PANTOPRAZOLE 40 MG TABLET PO SCH (18:28)
--- NOTE | 2018-12-24 20:30 | US ---
EXAMINATION TYPE: US venous doppler duplex LE RT DATE OF EXAM: 12/24/2018 7:17 PM COMPARISON: NONE CLINICAL HISTORY: rle edema. SIDE PERFORMED: Right TECHNIQUE: The lower extremity deep venous system is examined utilizing real time linear array sonog tereza with graded compression, doppler sonography and color-flow sonography. VESSELS IMAGED: External Iliac Vein (EIV) Common Femoral Vein Deep Femoral Vein Greater Saphenous Vein * Femoral Vein Popliteal Vein Small Saphenous Vein * Proximal Calf Veins (* superficial vessels) Right Leg: Negative for DVT IMPRESSION: Normal right leg duplex venous sonogram.
[2018-12-25] MEDS: PANTOPRAZOLE 40 MG TABLET PO SCH ×2 (08:31→21:22)
[2018-12-25] MEDS: ATORVASTATIN 20 MG TAB PO SCH (08:31)
[2018-12-25] MEDS: METOPROLOL TARTRATE 25 MG TAB PO SCH ×3 (08:31→21:27)
[2018-12-25] MEDS: FINASTERIDE 5 MG TAB PO SCH (09:21)
[2018-12-25] MEDS: HYDROCHLOROTHIAZIDE 12.5 MG CAP PO SCH (09:21)
--- NOTE | 2018-12-25 11:53 | P.GSCN ---
History of Present Illness Consult date: 12/25/18 Reason for Consult: Retrocaval lymphadenopathy History of present illness: This is a 8-year-old male who underwent recent CAT scan found have significant retrocaval lymphadenopathy. The patient had a consult placed Dr. Johnston for possible lymph node biopsy. He currently feels well denies any abdominal pain. Past Medical History Past Medical History: Coronary Artery Disease (CAD), Cancer, Heart Failure, CVA/ TIA, GERD/Reflux, Hyperlipidemia, Hypertension, Myocardial Infarction ([place]), Osteoarthritis (OA), Prostate Disorder, Syncope, Vascular Disorder Additional Past Medical History / Comment(s): 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 Last Myocardial Infarction Date:: possible [place] in 1991 during cardiac cath. History of Any Multi-Drug Resistant Organisms: None Reported Past Surgical History: Back Surgery Additional Past Surgical History / Comment(s): 2012 pacemaker, PCI with stents 1991 at [facility], suspension microlarygoscopy, lung biopsy at [facility], colonoscopy, L elbow surgery, lumbar surgery x3, bilateral cataract removals/lens implants. Past Anesthesia/Blood Transfusion Reactions: No Reported Reaction Additional Past Anesthesia/Blood Transfusion Reaction / Comm: pt is independant no assistive devices lives in a single level home no steps. no outside services recieved. no past service. 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 Date of Last Stent Placement:: 1991 Smoking Status: Former smoker - Past Family History Mother Family Medical History: No Reported History Additional Family Medical History / Comment(s): was killed in accident Father Additional Family Medical History / Comment(s): "heart problems" and brain cancer. Father had history of myocardial infarction and pacemaker placement. Brother(s) Additional Family Medical History / Comment(s): Patient does not have any brothers or sisters. Daughter(s) Additional Family Medical History / Comment(s): Patient has 2 sons and 2 daughters. One daughter has coronary artery disease. Medications and Allergies Home Medications Medication Instructions Recorded Confirmed Type Finasteride 5 mg PO DAILY 04/12/14 12/24/18 History Metoprolol Tartrate [Lopressor] 25 mg PO TID 04/12/14 12/24/18 History Pantoprazole Sodium 40 mg PO BID 04/12/14 12/24/18 History Simvastatin [Zocor] 40 mg PO DAILY 04/15/17 12/24/18 History Nitroglycerin Sl Tabs [Nitrostat] 0.4 mg SUBLINGUAL Q5M PRN 05/03/17 12/24/18 History Acetaminophen Tab [Tylenol] 650 mg PO Q6HR PRN tab 06/11/17 12/24/18 Rx Aspirin 325 mg PO HS 04/27/18 12/24/18 History Hydrochlorothiazide [Hydrodiuril] 12.5 mg PO DAILY #30 cap 04/29/18 12/24/18 Rx Allergies Allergy/AdvReac Type Severity Reaction Status Date / Time No Known Allergies Allergy Verified 12/24/18 08:52 Surgical - Exam Vital Signs Temp Pulse Resp BP Pulse Ox 97.7 F 62 16 108/67 94 L 12/24/18 08:39 12/24/18 08:39 12/24/18 08:39 12/24/18 08:39 12/24/18 08:39 - General well developed, no distress - Eyes PERRL - ENT normal pinna - Neck no masses - Respiratory normal expansion - Cardiovascular Rhythm: regular - Abdomen Abdomen: soft, non tender Results - Labs 12/24/18 09:07 12/24/18 09:07 Abnormal Lab Results - Last 24 Hours (Table) 12/24/18 12/24/18 12/24/18 Range/Units 09:07 09:07 09:07 ESR 21 H (0-15) mm/hr Lactate Dehydrogenase 797 H (313-618) U/L CK-MB (CK-2) 2.9 H (0.0-2.4) ng/mL - Imaging CT scan - abdomen: report reviewed (Right iliac chain, retroperitoneal and mediastinal lymphadenopathy) Assessment and Plan Assessment: Lymphadenopathy. Patient's CAT scan will be reviewed by Dr. Johnston. He will make final determination on possible lymph node biopsy. The patient is stable I would recommend discharge home over the weekend and a follow-up as outpatient for lymph node biopsy.
[2018-12-25 12:13] LABS: Rheumatoid Factor 7 IU/mL (0-15)
[2018-12-25 12:14] LABS: Protein, Total 5.8 g/dL (6.2-8.2)
[2018-12-25 18:46] LABS: Immunoglobulin A 93.5 mg/dL (60.0-350.0)
--- NOTE | 2018-12-25 23:30 | P.PN ---
Subjective Progress Note Date: 12/25/18 (Late entry due to EMR seen at 11am) Principal diagnosis: Lymphadenopathy Patient seen and evaluated, no acute complaints overnight. Surgery has seen patient. Objective - Vital Signs Vital signs: Vital Signs Temp 98.2 F 12/25/18 21:27 Pulse 74 12/25/18 21:27 Resp 18 12/25/18 21:27 BP 97/64 12/25/18 21:27 Pulse Ox 94 L 12/25/18 21:27 Intake & Output 12/25/18 12/25/18 12/26/18 06:59 18:59 06:59 Weight 88 kg Other: Voiding Method Urinal Toilet # Voids 2 - Exam Gen: A;lert and oriented, NAD Head NC, NT Neck Supple, trachea midline Lymphadenopathy no cervical and supraclavicaular on palpation, shotty inguinal Lungs CTA, No increased effort Heart: reg reg Abdomen: Soft, ND, NT Extremities: rle edema Neuro: non focal [place] - Labs CBC & Chem 7: 12/24/18 09:07 12/24/18 09:07 Labs: Abnormal Lab Results - Last 24 Hours (Table) 12/25/18 Range/Units 07:03 Total Protein (PEP) 5.8 L (6.2-8.2) g/dL Assessment and Plan Plan: Assessment and Recommendations: 1. Diffuse Adenopathy through mediastinum, left supraclavicular and retrocral on CT scan: - Check LDH and Uric Acid - Unlikely related to history of laryngeal cancer, Ideally will need Excisional biopsy of Lymph node as if this is lymphoma excisional biopsy is preferred. - Will consult General Surgery to evaluate for inpatient versus outpatient excisional biopsy. - We will also check further inflammation markers within AMA, SPEP, RA, immunoglobulins IgA IgM IgG, angiotension converting enzyme for the diagnosis assistance of sarcoidosis, Lambda Free Light Chains, [place] Free Light Chains, Plan: We are still awaiting Inflammatory and further work-up which we can follow -up with as an outpatient if it is decided he can be discharged and surgery plans for excisional lymph node biopsy as outpatient. - If discharged will have him follow-up in office in 2 weeks after the results of the biopsy return and to review the further testing on peripheral blood. Discussed with patient and daughter
[2018-12-26] MEDS: HYDROcodone/APAP 5-325MG 1 EACH TAB PO PRN ×2 (05:14→21:32)
[2018-12-26] MEDS: PANTOPRAZOLE 40 MG TABLET PO SCH ×2 (08:10→16:24)
[2018-12-26] MEDS: ATORVASTATIN 20 MG TAB PO SCH (08:10)
[2018-12-26] MEDS: METOPROLOL TARTRATE 25 MG TAB PO SCH ×3 (08:11→21:32)
[2018-12-26] MEDS: HYDROCHLOROTHIAZIDE 12.5 MG CAP PO SCH (08:11)
[2018-12-26] MEDS: FINASTERIDE 5 MG TAB PO SCH (08:11)
--- NOTE | 2018-12-26 13:39 | P.PN ---
Progress Note - Text Progress Note Date: 12/26/18 Patient is resting comfortably in his bed. There is no acute changes. On exam his vital signs are still present soft. Dr. Johnston will reevaluate the patient tomorrow. He could be discharged home and follow-up as an outpatient for his lymph node biopsy.
--- NOTE | 2018-12-26 14:41 | P.PN ---
Subjective Progress Note Date: 12/25/18 Principal diagnosis: Generalized lymphadenopathy with possible lymphoma, history of throat cancer, severe lower back pain, CAD This is an 87-year-old male patient of Dr. Mckeon, Dr. 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 patient who was seen in the hospital in April for 2016 for syncopal episode was claimed to be related to dehydration and severe hypertension. Patient was hospitalized again 4 weeks earlier for chest pain ended up having an angiogram which showed intermediate in -stent stenosis involving the mid RCA seems to be in change from before and recommended to do medical management. Patient was then admitted again in May 2017 with mental status changes, transient expressive aphasia, dysarthria and facial droop and headache thought to be related to TIA and uncontrolled hypertension and patient was seen by Dr. Feliz at that time. He was then admitted March 2018 for dizziness related to vestibular neuritis. Regarding laryngeal cancer which was treated in 2006, patient did have lung nodules at that time and went to [facility] for biopsy which found not to be cancerous. The nodules were initially found on PET scan. Patient states that he has been following with Dr. Messina for the past year regarding back pain and has overall weakness with previous history of 3 back surgeries done in the and 1980s. He does use a walker on and off but no recent falls. He denies any weakness or numbness to his lower extremities. He denies any shortness of breath. He does have a remote history of smoking 1 pack per day for 20 years and quit 35 years ago. He has had a cough with some, no difficulty swallowing meats. He denies having any blood in the stools. He has had weight loss of 7 pounds over the past 6-12 months unintentional. Patient now complains of upper back pain is in the middle of the night it started getting very bad at 2 in the morning. The pain did not go away. He had no fall or injury to it. Pain is worse with any movement, no weakness to the extremities. Patient came into [facility] emergency center for evaluation. He was afebrile, vital signs were stable, pulse ox 94% on room air. EKG is a paced rhythm. CBC essentially normal. Sodium 132, creatinine 1.34, alkaline phosphatase 140 other liver function tests within normal limits. Troponin negative. Lipase normal. CAT scan of the chest with contrast revealed a large superior - no lymph nodes area and largest is 1.8 cm. There are additional enlarged. Oral aortic and pretracheal lymph nodes. Right hilar lymph node may be present. Left subclavicular lymphadenopathy appears to be present 1.4 cm. Additional clavicle adenopathy is present up to 1.8 cm. Enlarged retrocrural lymph node measuring 1 cm with additional adenopathy present. Some celiac axis adenopathy within the abdomen. Calcified granulomas. Nodularity within the right mid lung may be vascular. Nodule in the left apex measuring 1.1 cm. CAT scan of the abdomen pelvis with oral contrast and oncology consult requested. Discussed with patient and his daughter at the bedside that he will require a biopsy. Patient last took full- strength aspirin December 23 in the evening. 12/25: Back pain significantly better at this point patient is still seen Dr. Messina, which will be consulted in this case. Patient had generalized lymphadenopathy CAT scan of the chest abdomen and pelvis was done and showed multiple abnormality all along with most likely consistent with lymphoma. Patient has met oncology planning to do lymph node biopsy. Patient was seen Dr. Stewart and possibly biopsy be done on Thursday. Objective - Vital Signs Vital signs: Vital Signs Temp 97.6 F 12/25/18 04:33 Pulse 61 12/25/18 04:33 Resp 16 12/25/18 04:33 BP 139/68 12/25/18 04:33 Pulse Ox 100 12/25/18 04:33 Intake & Output 12/25/18 12/25/18 12/26/18 06:59 18:59 06:59 Weight 88 kg Other: Voiding Method Urinal Toilet # Voids 2 - Exam Review of system: CONSTITUTIONAL: Well-developed no acute respiratory distress. Elderly laying in bed still having slight bit back pain EYES: No icterus sclerae, no conjunctivitis. EARS, NOSE, MOUTH, THROAT, and FACE: No sore throat, lymphadenopathy, carotid bruits or deformity. Slight fullness in the neck area from lymphadenopathy. RESPIRATORY: No SOB cough or wheezes. CARDIOVASCULAR: No CP, Palpitation, PND, Orthopnea, or angina. GASTROINTESTINAL: No Abd pain, Nausea or vomiting, no Diarrhea or constipation, No GI Bleed, no distention or masses. GENITOURINARY: Negative for Hematuria or UTI, no kidney stones. INTEGUMENT/BREAST: Negative for any muscular injury with mild osteoarthritis.. HEMATOLOGIC/LYMPHATIC: Negative for bleed or purpura. MUSCULOSKELTAL: Negative for Myalgia or arthralgia. NEURLOGICAL: No LOC, Sz or syncope, blurred vision dizziness or abnormality.. BEHAVIORAL/PSYCH: Negative. ENDOCRINE: Negative. Physical examination: General Appearance: Alert, cooperative, no distress, appears stated age. Neck HEENT: Supple, positive lymphadenopathy, no thyroid enlargement, no carotid bruits. Lungs: Clear to auscultation without crackles or wheezes no rhonchi, no deformity. Chest Wall: Chest wall normal expansion with deep inspiration no tenderness and no deformity was found on exam, no costochondral pain or discomfort. Heart: Regular rate and rhythm, S1, S2 normal, no murmur, rub or gallop. Back: Significant tenderness and discomfort and lumbar spine area. Abdomen: Soft, non-tender, bowel sounds active all four quadrants, no masses, no organomegaly. Positive slight lymph node enlargement in the groin area. Extremities: Extremities normal, atraumatic, no cyanosis or edema. Pulses: 2+ and symmetric. Skin: Skin color, texture, tugor normal, no rashes or lesions. Neurologic: Alert oriented x3 cranial nerves II through XII intact, no motor deficit, no abnormal balance or gait. - Labs CBC & Chem 7: 12/24/18 09:07 12/24/18 09:07 Labs: Abnormal Lab Results - Last 24 Hours (Table) 12/25/18 Range/Units 07:03 Total Protein (PEP) 5.8 L (6.2-8.2) g/dL Assessment and Plan Plan: 1. Thoracic back pain with history of chronic back pain under the care of Dr. Messina. Which will be consulted continue current management. 2. Mediastinal lymph node enlargement with diffuse lymphadenopathy with concern of metastasis disease or lymphoma, lymph node biopsy will be performed by general surgery most likely from the groin area or the cervical area. 3. Mild dysphagia: Most likely from the severity of the lymph node in the cervical spine area continue patient on PPI and furthermore if needed EGD and outpatient can be done. 4. Coronary artery disease status post stent placement in the , stable. No complaints of chest pain, normal troponin. 5. Hypertension. Continue Lopressor 25 mg 3 times daily and hydrochlorothiazide 12.5 mg daily. 6. Hyperlipidemia. Continue simvastatin. 7. Benign prostatic hypertrophy. Continue finasteride 5 mg daily. 8. History of coronary artery disease status post stent placement in the , stable. 9. Bradycardia status post pacemaker. 10. Right carotid artery disease of 80% and left 70% followed by Dr. Ashley. 11. 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
--- NOTE | 2018-12-26 14:44 | P.PN ---
Subjective Progress Note Date: 12/26/18 Principal diagnosis: Generalized lymphadenopathy with possible lymphoma, history of throat cancer, severe lower back pain, CAD, dysphagia This is an 87-year-old male patient of Dr. Mckeon, Dr. 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 patient who was seen in the hospital in April for 2016 for syncopal episode was claimed to be related to dehydration and severe hypertension. Patient was hospitalized again 4 weeks earlier for chest pain ended up having an angiogram which showed intermediate in -stent stenosis involving the mid RCA seems to be in change from before and recommended to do medical management. Patient was then admitted again in May 2017 with mental status changes, transient expressive aphasia, dysarthria and facial droop and headache thought to be related to TIA and uncontrolled hypertension and patient was seen by Dr. Feliz at that time. He was then admitted March 2018 for dizziness related to vestibular neuritis. Regarding laryngeal cancer which was treated in 2006, patient did have lung nodules at that time and went to [facility] for biopsy which found not to be cancerous. The nodules were initially found on PET scan. Patient states that he has been following with Dr. Messina for the past year regarding back pain and has overall weakness with previous history of 3 back surgeries done in the and . He does use a walker on and off but no recent falls. He denies any weakness or numbness to his lower extremities. He denies any shortness of breath. He does have a remote history of smoking 1 pack per day for 20 years and quit 35 years ago. He has had a cough with some, no difficulty swallowing meats. He denies having any blood in the stools. He has had weight loss of 7 pounds over the past 6-12 months unintentional. Patient now complains of upper back pain is in the middle of the night it started getting very bad at 2 in the morning. The pain did not go away. He had no fall or injury to it. Pain is worse with any movement, no weakness to the extremities. Patient came into [facility] emergency center for evaluation. He was afebrile, vital signs were stable, pulse ox 94% on room air. EKG is a paced rhythm. CBC essentially normal. Sodium 132, creatinine 1.34, alkaline phosphatase 140 other liver function tests within normal limits. Troponin negative. Lipase normal. CAT scan of the chest with contrast revealed a large superior - no lymph nodes area and largest is 1.8 cm. There are additional enlarged. Oral aortic and pretracheal lymph nodes. Right hilar lymph node may be present. Left subclavicular lymphadenopathy appears to be present 1.4 cm. Additional clavicle adenopathy is present up to 1.8 cm. Enlarged retrocrural lymph node measuring 1 cm with additional adenopathy present. Some celiac axis adenopathy within the abdomen. Calcified granulomas. Nodularity within the right mid lung may be vascular. Nodule in the left apex measuring 1.1 cm. CAT scan of the abdomen pelvis with oral contrast and oncology consult requested. Discussed with patient and his daughter at the bedside that he will require a biopsy. Patient last took full- strength aspirin December 23 in the evening. 12/25: Back pain significantly better at this point patient is still seen Dr. Messina, which will be consulted in this case. Patient had generalized lymphadenopathy CAT scan of the chest abdomen and pelvis was done and showed multiple abnormality all along with most likely consistent with lymphoma. Patient has met oncology planning to do lymph node biopsy. Patient was seen Dr. Stewart and possibly biopsy be done on Thursday. 12/26: Patient continued to have slight lower back pain Dr. dee on possible pain management will be consulted. Patient stated having mild dysphagia but slight better than before, continue conservative management for now till after the biopsies done. Objective - Vital Signs Vital signs: Vital Signs Temp 98 F 12/26/18 13:02 Pulse 62 12/26/18 13:02 Resp 18 12/26/18 13:02 BP 142/63 12/26/18 13:02 Pulse Ox 98 12/26/18 13:02 Intake & Output 12/25/18 12/26/18 12/26/18 18:59 06:59 18:59 Intake Total 175 950 Balance 175 950 Weight 88 kg Intake: Oral 175 950 Other: Voiding Method Toilet Toilet Toilet # Voids 1 3 - Exam Review of system: CONSTITUTIONAL: Well-developed no acute respiratory distress. Elderly laying in bed still having slight bit back pain EYES: No icterus sclerae, no conjunctivitis. EARS, NOSE, MOUTH, THROAT, and FACE: No sore throat, lymphadenopathy, carotid bruits or deformity. Slight fullness in the neck area from lymphadenopathy. RESPIRATORY: No SOB cough or wheezes. CARDIOVASCULAR: No CP, Palpitation, PND, Orthopnea, or angina. GASTROINTESTINAL: No Abd pain, Nausea or vomiting, no Diarrhea or constipation, No GI Bleed, no distention or masses. GENITOURINARY: Negative for Hematuria or UTI, no kidney stones. INTEGUMENT/BREAST: Negative for any muscular injury with mild osteoarthritis.. HEMATOLOGIC/LYMPHATIC: Negative for bleed or purpura. MUSCULOSKELTAL: Negative for Myalgia or arthralgia. NEURLOGICAL: No LOC, Sz or syncope, blurred vision dizziness or abnormality.. BEHAVIORAL/PSYCH: Negative. ENDOCRINE: Negative. Physical examination: General Appearance: Alert, cooperative, no distress, appears stated age. Neck HEENT: Supple, positive lymphadenopathy, no thyroid enlargement, no carotid bruits. Lungs: Clear to auscultation without crackles or wheezes no rhonchi, no deformity. Chest Wall: Chest wall normal expansion with deep inspiration no tenderness and no deformity was found on exam, no costochondral pain or discomfort. Heart: Regular rate and rhythm, S1, S2 normal, no murmur, rub or gallop. Back: Significant tenderness and discomfort and lumbar spine area. Abdomen: Soft, non-tender, bowel sounds active all four quadrants, no masses, no organomegaly. Positive slight lymph node enlargement in the groin area. Extremities: Extremities normal, atraumatic, no cyanosis or edema. Pulses: 2+ and symmetric. Skin: Skin color, texture, tugor normal, no rashes or lesions. Neurologic: Alert oriented x3 cranial nerves II through XII intact, no motor deficit, no abnormal balance or gait. - Labs CBC & Chem 7: 12/24/18 09:07 12/24/18 09:07 Assessment and Plan Plan: 1. Thoracic back pain with history of chronic back pain under the care of Dr. Messina. Which will be consulted continue current management. 2. Mediastinal lymph node enlargement with diffuse lymphadenopathy with concern of metastasis disease or lymphoma, lymph node biopsy will be performed by general surgery most likely from the groin area or the cervical area. 3. Mild dysphagia: Most likely from the severity of the lymph node in the cervical spine area continue patient on PPI and furthermore if needed EGD and outpatient can be done. 4. History of CAD: No chest pain or angina lately. 5. Hypertension. Weight control on Lopressor and hydrochlorothiazide. 6. Hyperlipidemia. At some point statin can be stopped completely. 7. Benign prostatic hypertrophy. Patient is not symptomatic while he is on finasteride. 8. Bradycardia status post pacemaker. 9. Right carotid artery disease of 80% and left 70% followed by Dr. Ashley. 10. 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 If continued to have dysphagia EGD will be done.
[2018-12-26 16:33] LABS: Appearance,Urine Clear (Clear); Bilirubin,Urine Negative (Negative); Blood,Urine Negative (Negative); Color,Urine Yellow; Glucose,Urine (UA) Negative (Negative); Ketones,Urine Negative (Negative); Leukocyte Esterase,Urine Negative (Negative); Nitrite,Urine Negative (Negative); Protein,Urine Negative (Negative); Specific Gravity,Urine 1.011 (1.001-1.035)
--- NOTE | 2018-12-26 16:41 | P.PN ---
Subjective Progress Note Date: 12/26/18 Principal diagnosis: Lymphadenopathy Daughtetr at bedside, patient NPO for possible excisional LN biopsy in am, plan to follow-up with Dr Damon in 1-2 weeks Objective - Vital Signs Vital signs: Vital Signs Temp 98 F 12/26/18 13:02 Pulse 62 12/26/18 16:00 Resp 18 12/26/18 16:00 BP 142/63 12/26/18 13:02 Pulse Ox 98 12/26/18 13:02 Intake & Output 12/25/18 12/26/18 12/26/18 18:59 06:59 18:59 Intake Total 175 950 Balance 175 950 Weight 88 kg Intake: Oral 175 950 Other: Voiding Method Toilet Toilet Toilet # Voids 1 3 - Exam Gen: A;lert and oriented, NAD Head NC, NT Neck Supple, trachea midline Lymphadenopathy no cervical and supraclavicaular on palpation, shotty inguinal Lungs CTA, No increased effort Heart: reg reg Abdomen: Soft, ND, NT Extremities: rle edema Neuro: non focal [place] - Labs CBC & Chem 7: 12/24/18 09:07 12/24/18 09:07 Assessment and Plan Plan: Assessment and Recommendations: 1. Diffuse Adenopathy through mediastinum, left supraclavicular and retrocral on CT scan: - Check LDH and Uric Acid - Unlikely related to history of laryngeal cancer, Ideally will need Excisional biopsy of Lymph node as if this is lymphoma excisional biopsy is preferred. - Will consult General Surgery to evaluate for inpatient versus outpatient excisional biopsy. - We will also check further inflammation markers within AMA, SPEP, RA, immunoglobulins IgA IgM IgG, angiotension converting enzyme for the diagnosis assistance of sarcoidosis, Lambda Free Light Chains, Miley Free Light Chains, Plan: We are still awaiting Inflammatory and further work-up which we can follow -up with as an outpatient if it is decided he can be discharged and surgery plans for excisional lymph node biopsy as outpatient. Satishetr at bedside, patient NPO for possible excisional LN biopsy in am, plan to follow-up with Dr Damon in 1-2 weeks
[2018-12-27] MEDS: HYDROcodone/APAP 5-325MG 1 EACH TAB PO PRN (03:49)
[2018-12-27 08:15] LABS: Basophils # (A) 0.1 k/uL (0-0.2); Basophils % (A) 1 %; Eosinophils # (A) 0.3 k/uL (0-0.7); Eosinophils % (A) 4 %; HCT 40.4 % (39.0-53.0); HGB 13.1 gm/dL (13.0-17.5); Lymphocytes # (A) 0.6 k/uL (1.0-4.8); Lymphocytes % (A) 9 %; MCH 28.7 pg (25.0-35.0); MCHC 32.5 g/dL (31.0-37.0); MCV 88.2 fL (80.0-100.0); Mean Platelet Volume 6.2; Monocytes # (A) 0.4 k/uL (0-1.0); Monocytes % (A) 5 %; Neutrophils # (A) 5.6 k/uL (1.3-7.7); Neutrophils % (A) 78 %; Platelet Count 272 k/uL (150-450); RBC 4.58 m/uL (4.30-5.90); RDW 15.3 % (11.5-15.5); WBC 7.1 k/uL (3.8-10.6)
[2018-12-27 08:24] LABS: Albumin 3.6 g/dL (3.5-5.0); Potassium 4.5 mmol/L (3.5-5.1); Total Bilirubin 0.8 mg/dL (0.2-1.3); Total Protein 6.1 g/dL (6.3-8.2)
[2018-12-27 08:37] LABS: Prothrombin Time 10.3 sec (9.0-12.0)
[2018-12-27] MEDS: METOPROLOL TARTRATE 25 MG TAB PO SCH ×3 (09:29→21:23)
[2018-12-27] MEDS: PANTOPRAZOLE 40 MG TABLET PO SCH ×2 (09:29→17:46)
[2018-12-27] MEDS: FINASTERIDE 5 MG TAB PO SCH (09:29)
[2018-12-27] MEDS: HYDROCHLOROTHIAZIDE 12.5 MG CAP PO SCH (09:29)
[2018-12-27] MEDS: ATORVASTATIN 20 MG TAB PO SCH (09:29)
[2018-12-27 11:32] LABS: Albumin 3.36 g/dL (3.80-4.90); Gamma Globulin 0.77 g/dL (0.70-1.50)
--- NOTE | 2018-12-27 12:41 | P.PN ---
Subjective Progress Note Date: 12/27/18 Principal diagnosis: Generalized lymphadenopathy with possible lymphoma, history of throat cancer, severe lower back pain, CAD, dysphagia This is an 87-year-old male patient of Dr. Mckeon, Dr. 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 patient who was seen in the hospital in April for 2016 for syncopal episode was claimed to be related to dehydration and severe hypertension. Patient was hospitalized again 4 weeks earlier for chest pain ended up having an angiogram which showed intermediate in -stent stenosis involving the mid RCA seems to be in change from before and recommended to do medical management. Patient was then admitted again in May 2017 with mental status changes, transient expressive aphasia, dysarthria and facial droop and headache thought to be related to TIA and uncontrolled hypertension and patient was seen by Dr. Feliz at that time. He was then admitted March 2018 for dizziness related to vestibular neuritis. Regarding laryngeal cancer which was treated in 2006, patient did have lung nodules at that time and went to [facility] for biopsy which found not to be cancerous. The nodules were initially found on PET scan. Patient states that he has been following with Dr. Messina for the past year regarding back pain and has overall weakness with previous history of 3 back surgeries done in the and . He does use a walker on and off but no recent falls. He denies any weakness or numbness to his lower extremities. He denies any shortness of breath. He does have a remote history of smoking 1 pack per day for 20 years and quit 35 years ago. He has had a cough with some, no difficulty swallowing meats. He denies having any blood in the stools. He has had weight loss of 7 pounds over the past 6-12 months unintentional. Patient now complains of upper back pain is in the middle of the night it started getting very bad at 2 in the morning. The pain did not go away. He had no fall or injury to it. Pain is worse with any movement, no weakness to the extremities. Patient came into [facility] emergency center for evaluation. He was afebrile, vital signs were stable, pulse ox 94% on room air. EKG is a paced rhythm. CBC essentially normal. Sodium 132, creatinine 1.34, alkaline phosphatase 140 other liver function tests within normal limits. Troponin negative. Lipase normal. CAT scan of the chest with contrast revealed a large superior - no lymph nodes area and largest is 1.8 cm. There are additional enlarged. Oral aortic and pretracheal lymph nodes. Right hilar lymph node may be present. Left subclavicular lymphadenopathy appears to be present 1.4 cm. Additional clavicle adenopathy is present up to 1.8 cm. Enlarged retrocrural lymph node measuring 1 cm with additional adenopathy present. Some celiac axis adenopathy within the abdomen. Calcified granulomas. Nodularity within the right mid lung may be vascular. Nodule in the left apex measuring 1.1 cm. CAT scan of the abdomen pelvis with oral contrast and oncology consult requested. Discussed with patient and his daughter at the bedside that he will require a biopsy. Patient last took full- strength aspirin December 23 in the evening. 12/25: Back pain significantly better at this point patient is still seen Dr. Messina, which will be consulted in this case. Patient had generalized lymphadenopathy CAT scan of the chest abdomen and pelvis was done and showed multiple abnormality all along with most likely consistent with lymphoma. Patient has met oncology planning to do lymph node biopsy. Patient was seen Dr. Stewart and possibly biopsy be done on Thursday. 12/26: Patient continued to have slight lower back pain Dr. Messina on possible pain management will be consulted. Patient stated having mild dysphagia but slight better than before, continue conservative management for now till after the biopsies done. 12/27: Patient will be seen Dr. Salinas today and planning for biopsy from the lymph node most likely in the groin by tomorrow. We will start diet and awaiting for his biopsy tomorrow. Also patient seen Dr. Messina and plan for probably a back brace beside conservative management in the current finding in his thoracic spine. Objective - Vital Signs Vital signs: Vital Signs Temp 97.6 F 12/27/18 11:36 Pulse 66 12/27/18 11:36 Resp 18 12/27/18 11:36 BP 138/74 12/27/18 11:36 Pulse Ox 98 12/27/18 11:36 Intake & Output 12/26/18 12/27/18 12/27/18 18:59 06:59 18:59 Intake Total 950 590 Balance 950 590 Weight 88.5 kg Intake: Oral 950 590 Other: Voiding Method Toilet Toilet Toilet Diaper Diaper # Voids 3 3 # Bowel Movements 1 - Exam Review of system: CONSTITUTIONAL: Well-developed no acute respiratory distress. Elderly laying in bed still having slight bit back pain EYES: No icterus sclerae, no conjunctivitis. EARS, NOSE, MOUTH, THROAT, and FACE: No sore throat, lymphadenopathy, carotid bruits or deformity. Slight fullness in the neck area from lymphadenopathy. RESPIRATORY: No SOB cough or wheezes. CARDIOVASCULAR: No CP, Palpitation, PND, Orthopnea, or angina. GASTROINTESTINAL: No Abd pain, Nausea or vomiting, no Diarrhea or constipation, No GI Bleed, no distention or masses. GENITOURINARY: Negative for Hematuria or UTI, no kidney stones. INTEGUMENT/BREAST: Negative for any muscular injury with mild osteoarthritis.. HEMATOLOGIC/LYMPHATIC: Negative for bleed or purpura. MUSCULOSKELTAL: Negative for Myalgia or arthralgia. NEURLOGICAL: No LOC, Sz or syncope, blurred vision dizziness or abnormality.. Still have lower back pain with slight numbness in the right side of his body. BEHAVIORAL/PSYCH: Negative. ENDOCRINE: Negative. Physical examination: General Appearance: Alert, cooperative, no distress, appears stated age. Neck HEENT: Supple, positive lymphadenopathy, no thyroid enlargement, no carotid bruits. Lungs: Clear to auscultation without crackles or wheezes no rhonchi, no deformity. Chest Wall: Chest wall normal expansion with deep inspiration no tenderness and no deformity was found on exam, no costochondral pain or discomfort. Heart: Regular rate and rhythm, S1, S2 normal, no murmur, rub or gallop. Back: Significant tenderness and discomfort and lumbar spine area. Abdomen: Soft, non-tender, bowel sounds active all four quadrants, no masses, no organomegaly. Positive slight lymph node enlargement in the groin area. Extremities: Extremities normal, atraumatic, no cyanosis or edema. Pulses: 2+ and symmetric. Skin: Skin color, texture, tugor normal, no rashes or lesions. Neurologic: Alert oriented x3 cranial nerves II through XII intact, no motor deficit, no abnormal balance or gait. - Labs CBC & Chem 7: 12/27/18 07:11 12/27/18 07:11 Labs: Abnormal Lab Results - Last 24 Hours (Table) 12/25/18 12/25/18 12/27/18 Range/Units 07:03 07:03 07:11 Lymphocytes # 0.6 L (1.0-4.8) k/uL Sodium (137-145) mmol/L Chloride (98-107) mmol/L Creatinine (0.66-1.25) mg/dL Alkaline Phosphatase (38-126) U/L Total Protein (6.3-8.2) g/dL Albumin (PEP) 3.36 L (3.80-4.90) g/dL Angiotensin Convert Enz 65 H (8-52) U/L 12/27/18 Range/Units 07:11 Lymphocytes # (1.0-4.8) k/uL Sodium 132 L (137-145) mmol/L Chloride 96 L (98-107) mmol/L Creatinine 1.34 H (0.66-1.25) mg/dL Alkaline Phosphatase 133 H (38-126) U/L Total Protein 6.1 L (6.3-8.2) g/dL Albumin (PEP) (3.80-4.90) g/dL Angiotensin Convert Enz (8-52) U/L Assessment and Plan Plan: 1. Thoracic back pain with history of chronic back pain under the care of Dr. Messina. Conservative management was prescribed but Dr. Messina the patient would have a brace as well along with pain management. 2. Generalized lymph node enlargement with diffuse lymphadenopathy with concern of metastasis disease or lymphoma, biopsy hopefully will be performed by Dr. Salinas tomorrow. 3. Mild dysphagia: Most likely from the severity of the lymph node in the cervical spine area continue patient on PPI and furthermore if needed EGD and outpatient can be done. 4. History of CAD: No chest pain or angina lately. 5. Hypertension. Weight control on Lopressor and hydrochlorothiazide. 6. Hyperlipidemia. At some point statin can be stopped completely. 7. Benign prostatic hypertrophy. Patient is not symptomatic while he is on finasteride. 8. Bradycardia status post pacemaker. 9. Right carotid artery disease of 80% and left 70% followed by Dr. Ashley. 10. 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 If continued to have dysphagia EGD will be done.
--- NOTE | 2018-12-27 15:54 | P.PN ---
Subjective Progress Note Date: 12/27/18 Principal diagnosis: Back pain, lymphadenopathy, Hx laryngeal ca Pt seen today in f/u with family at bedside. His back pain is much better, he is going to eat lunch, appetite is decent, no nausea, LISET, new cough, abd pain, acute changes in bowel or bladder habits, he is ambulatory Objective - Vital Signs Vital signs: Vital Signs Temp 97.6 F 12/27/18 11:36 Pulse 66 12/27/18 11:36 Resp 18 12/27/18 11:36 BP 138/74 12/27/18 11:36 Pulse Ox 98 12/27/18 11:36 Intake & Output 12/26/18 12/27/18 12/27/18 18:59 06:59 18:59 Intake Total 950 590 Balance 950 590 Weight 88.5 kg Intake: Oral 950 590 Other: Voiding Method Toilet Toilet Toilet Diaper Diaper # Voids 3 3 # Bowel Movements 1 - Constitutional General appearance: Present: average body habitus, cooperative, no acute distress - EENT Eyes: Present: anicteric sclerae, EOMI ENT: Present: normal oropharynx - Neck Details: Unable to palpate adenopathy in neck, supraclavicular area, axilla or groin - Respiratory Respiratory: bilateral: CTA - Cardiovascular Rhythm: regular Heart sounds: normal: S1, S2 Abnormal Heart Sounds: Absent: systolic murmur, diastolic murmur, rub, S3 Gallop , S4 Gallop, click, other - Peripheral edema leg Peripheral Edema: bilateral: None - Gastrointestinal General gastrointestinal: Present: normal bowel sounds, soft - Integumentary Integumentary: Present: pale - Neurologic Neurologic: Present: CNII-XII intact - Musculoskeletal Musculoskeletal: Present: strength equal bilaterally - Psychiatric Psychiatric: Present: A&O x's 3, appropriate affect, intact judgment & insight - Labs CBC & Chem 7: 12/27/18 07:11 12/27/18 07:11 Labs: Abnormal Lab Results - Last 24 Hours (Table) 12/25/18 12/25/18 12/27/18 Range/Units 07:03 07:03 07:11 Lymphocytes # 0.6 L (1.0-4.8) k/uL Sodium (137-145) mmol/L Chloride (98-107) mmol/L Creatinine (0.66-1.25) mg/dL Alkaline Phosphatase (38-126) U/L Total Protein (6.3-8.2) g/dL Albumin (PEP) 3.36 L (3.80-4.90) g/dL Angiotensin Convert Enz 65 H (8-52) U/L 12/27/18 Range/Units 07:11 Lymphocytes # (1.0-4.8) k/uL Sodium 132 L (137-145) mmol/L Chloride 96 L (98-107) mmol/L Creatinine 1.34 H (0.66-1.25) mg/dL Alkaline Phosphatase 133 H (38-126) U/L Total Protein 6.1 L (6.3-8.2) g/dL Albumin (PEP) (3.80-4.90) g/dL Angiotensin Convert Enz (8-52) U/L Assessment and Plan (1) Mediastinal lymphadenopathy Narrative/Plan: Work up thus far is certainly suggestive of an underlying inflammatory process, but no definitive diagnosis. Plan is for eval by Dr. Salinas with excision of a lymph node. Await Surgery eval. Pt will f/u with Dr. Damon about 5-7 days after biopsy for results and further plan/instructions. Pt and family agree with plan. Current Visit: Yes Status: Acute Priority: High Code(s): R59.0 - LOCALIZED ENLARGED LYMPH NODES SNOMED Code(s): 40997853
--- NOTE | 2018-12-27 16:16 | P.PN ---
Subjective Progress Note Date: 12/27/18 Principal diagnosis: Lymphadenopathy Patient seen over the weekend by Dr. Stewart. Patient with recent findings of significant adenopathy in the thorax and abdomen. We were consulted for possible open biopsy of palpable nodes. Unfortunately no definite accessible nodes were seen on recent scans. Patient is fairly asymptomatic other than back pain. Objective - Vital Signs Vital signs: Vital Signs Temp 97.6 F 12/27/18 11:36 Pulse 66 12/27/18 11:36 Resp 18 12/27/18 11:36 BP 138/74 12/27/18 11:36 Pulse Ox 98 12/27/18 11:36 Intake & Output 12/26/18 12/27/18 12/27/18 18:59 06:59 18:59 Intake Total 950 590 Balance 950 590 Weight 88.5 kg Intake: Oral 950 590 Other: Voiding Method Toilet Toilet Toilet Diaper Diaper # Voids 3 3 # Bowel Movements 1 - Exam Neck without masses or adenopathy Axillary and groin basins evaluated. No masses or adenopathy identified Abdomen soft nontender - Labs CBC & Chem 7: 12/27/18 07:11 12/27/18 07:11 Labs: Abnormal Lab Results - Last 24 Hours (Table) 12/25/18 12/25/18 12/27/18 Range/Units 07:03 07:03 07:11 Lymphocytes # 0.6 L (1.0-4.8) k/uL Sodium (137-145) mmol/L Chloride (98-107) mmol/L Creatinine (0.66-1.25) mg/dL Alkaline Phosphatase (38-126) U/L Total Protein (6.3-8.2) g/dL Albumin (PEP) 3.36 L (3.80-4.90) g/dL Angiotensin Convert Enz 65 H (8-52) U/L 12/27/18 Range/Units 07:11 Lymphocytes # (1.0-4.8) k/uL Sodium 132 L (137-145) mmol/L Chloride 96 L (98-107) mmol/L Creatinine 1.34 H (0.66-1.25) mg/dL Alkaline Phosphatase 133 H (38-126) U/L Total Protein 6.1 L (6.3-8.2) g/dL Albumin (PEP) (3.80-4.90) g/dL Angiotensin Convert Enz (8-52) U/L Assessment and Plan (1) Lymphadenopathy Narrative/Plan: Patient's exam negative for palpable adenopathy. Recommend percutaneous biopsy of most accessible node which is likely right iliac. Current Visit: Yes Status: Acute Code(s): R59.1 - GENERALIZED ENLARGED LYMPH NODES SNOMED Code(s): 23814090
--- NOTE | 2018-12-27 16:18 | P.CNOR ---
<Garfield Forbes - Last Filed: 12/27/18 16:15> History of Present Illness - [facility] Consult date: 12/27/18 Requesting physician: Mauri Flores Consult reason: back pain (Acute thoracic back pain) History of present illness: Patient is a very pleasant 88-year-old male who is well known to our service was seen examined at the bedside for further evaluation due to acute thoracic back pain. 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 In the early childhood worker of 12/24/2018 at approximately 2 AM he woke up with severe pain in his midthoracic spine. He called family who was brought to the emergency department for further evaluation. Multiple imaging modalities were taken at that time including chest x-ray, chest CT, and CT of the abdomen and pelvis. No acute findings were documented at that time per report in regards to his spine. He was found to have multiple lymphadenopathy nodules. He has been undergoing further evaluation and has been seen by medicine, general surgery, and oncology. Patient may be undergoing excisional lymph node biopsy today to help establish specific diagnoses. Patient states he is not currently experiencing any significant low back pain. His thoracic pain has improved since his admittance. He does occasionally have some pain that radiates down the right lower extremity. His pain is controlled while at rest. He denies any lower extremity weakness bilaterally. He denies any left lower extremity radiculopathy. Since his admittance to the hospital he has been able to ambulate to the restroom with the assistance of a walker. His family is present at the bedside today. Patient does have a history of pacemaker placement. Patient is hard of hearing but communicates well with hearing aids in place. 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 Last Myocardial Infarction Date:: possible [place] in 1991 during cardiac cath. History of Any Multi-Drug Resistant Organisms: None Reported Past Surgical History: Back Surgery Additional Past Surgical History / Comment(s): 2011 pacemaker, PCI with stents 1991 at [facility], suspension microlarygoscopy, lung biopsy at [facility], colonoscopy, L elbow surgery, lumbar surgery x3, bilateral cataract removals/lens implants. Past Anesthesia/Blood Transfusion Reactions: No Reported Reaction Additional Past Anesthesia/Blood Transfusion Reaction / Comm: pt is independant no assistive devices lives in a single level home no steps. no outside services recieved. no past service. 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 Date of Last Stent Placement:: 1991 Smoking Status: Former smoker - Past Family History Mother Family Medical History: No Reported History Additional Family Medical History / Comment(s): was killed in accident Father Additional Family Medical History / Comment(s): "heart problems" and brain cancer. Father had history of myocardial infarction and pacemaker placement. Brother(s) Additional Family Medical History / Comment(s): Patient does not have any brothers or sisters. Daughter(s) Additional Family Medical History / Comment(s): Patient has 2 sons and 2 daughters. One daughter has coronary artery disease. Medications and Allergies Home Medications Medication Instructions Recorded Confirmed Type Finasteride 5 mg PO DAILY 04/12/14 12/24/18 History Metoprolol Tartrate [Lopressor] 25 mg PO TID 04/12/14 12/24/18 History Pantoprazole Sodium 40 mg PO BID 04/12/14 12/24/18 History Simvastatin [Zocor] 40 mg PO DAILY 04/15/17 12/24/18 History Nitroglycerin Sl Tabs [Nitrostat] 0.4 mg SUBLINGUAL Q5M PRN 05/03/17 12/24/18 History Acetaminophen Tab [Tylenol] 650 mg PO Q6HR PRN tab 06/11/17 12/24/18 Rx Aspirin 325 mg PO HS 04/27/18 12/24/18 History Hydrochlorothiazide [Hydrodiuril] 12.5 mg PO DAILY #30 cap 04/29/18 12/24/18 Rx Allergies Allergy/AdvReac Type Severity Reaction Status Date / Time No Known Allergies Allergy Verified 12/24/18 08:52 Physical Examination Physical exam: Patient is awake, alert, and oriented 3 Vital signs stable Good chest excursion with deep inspiration and expiration Abdomen soft nontender No significant pain with palpation over the thoracic, lumbar, or lumbosacral spines Examination of thoracic and lumbar spine reveals skin is intact with no abrasions, lacerations, or bruises; no erythema, purulence or signs of infection Evidence of well-healed incision along the midline of the lumbar spine Dorsiflexion, plantarflexion, and extensor hallucis longus positive sustained bilaterally Lower extremity strength 5/5 bilaterally Patient is able to move legs independently in bed without significant difficulty No signs or symptoms of DVT; no calf pain No pain with internal and external rotation of the hips bilaterally Neurovascularly intact Results Pertinent studies: Chest CT taken on 12/24/2018: Interval development of multiple very prominent lymphadenopathy within the superior mediastinum, left supraclavicular region, retrocrural, and celiac axis level and which consider lymphoma within the differential along with possibility of metastatic disease due to patient's previous history; apparent soft tissue nodules within the bilateral lung apices ; lower thoracic degenerative disc disease; overall thoracic alignment appears to be adequately maintained; no evidence of significant vertebral body height loss; evidence of some bony change at approximately T5 CT of the chest abdomen and pelvis taken on 12/24/2018: Markedly enlarged right iliac chain lymph nodes with large lymph nodes in the periaortic, retrocrural, and celiac axis region within the abdomen; mediastinal adenopathy is noted on the CT performed earlier in the day in differential diagnosis should include lymphoma; no obvious lower thoracic or lumbar compression fracture deformity; L2-3 severe complete disc height loss with osteophytic spurring; L4-5 disc space changes; L5-S1 severe degenerative disease with vacuum disc phenomenon; no obvious listhesis - Labs Labs: Abnormal Lab Results - Last 24 Hours (Table) 12/25/18 12/27/18 12/27/18 Range/Units 07:03 07:11 07:11 Lymphocytes # 0.6 L (1.0-4.8) k/uL Sodium 132 L (137-145) mmol/L Chloride 96 L (98-107) mmol/L Creatinine 1.34 H (0.66-1.25) mg/dL Alkaline Phosphatase 133 H (38-126) U/L Total Protein 6.1 L (6.3-8.2) g/dL Angiotensin Convert Enz 65 H (8-52) U/L H & H 12/24/18 12/27/18 Range/Units 09:07 07:11 Hgb 14.2 13.1 (13.0-17.5) gm/dL Hct 41.4 40.4 (39.0-53.0) % Coagulation 12/24/18 12/27/18 Range/Units 09:07 07:11 INR 1.0 1.0 (<1.2) Result Diagrams: 12/27/18 07:11 12/27/18 07:11 Assessment and Plan Assessment: Assessment: Acute mid thoracic back pain without injury History of low back pain with history of multiple lumbar surgeries Right lower extremity radiculopathy Lower thoracic, lumbar, lumbosacral degenerative disc disease Very prominent diffuse lymphadenopathy within the superior mediastinum, left supraclavicular region, retrocrural, and celiac axis level Possible diagnoses of lymphoma (1) Acute thoracic back pain Current Visit: Yes Status: Acute Code(s): M54.6 - PAIN IN THORACIC SPINE SNOMED Code(s): 935286917 (2) Lumbar degenerative disc disease Current Visit: Yes Status: Acute Code(s): M51.36 - OTHER INTERVERTEBRAL DISC DEGENERATION, LUMBAR REGION SNOMED Code(s): 54080218 (3) History of lumbar surgery Current Visit: Yes Status: Acute Code(s): Z98.890 - OTHER SPECIFIED POSTPROCEDURAL STATES SNOMED Code(s): 989401354 (4) Lumbar back pain with radiculopathy affecting right lower extremity Current Visit: Yes Status: Acute Code(s): M54.16 - RADICULOPATHY, LUMBAR REGION SNOMED Code(s): 417299294 (5) Mediastinal lymphadenopathy Current Visit: Yes Status: Acute Priority: High Code(s): R59.0 - LOCALIZED ENLARGED LYMPH NODES SNOMED Code(s): 28721406 Plan: Plan: 1. After physical examination the patient, reviewing of imaging, and further discussion with the patient and his family, patient will be discussed in detail with Dr. Avni Messina. Patient has been experiencing acute onset midthoracic back pain without injury. He is not currently experiencing significant low back pain. He does have a history of some low back pain with history of multiple lumbar surgeries. He does experience some right lower extremity radiculopathy symptoms which could correlate to his degenerative changes at the lumbar and lumbosacral spine with history of previous multiple lumbar surgeries. He is not currently experiencing any lower extremity weakness bilaterally. He is not experiencing any left lower extremity radiculopathy. His thoracic pain is acute. He is currently undergoing further workup for very prominent diffuse lymphadenopathy may undergo a excisional biopsy is early as today, 12/27/2018, in which lymphoma is in the differential diagnoses. CT imaging of the chest, abdomen, and pelvis do not show specific compression fracture deformity with height loss throughout the thoracic, lumbar, lumbosacral spines. There does appear to be some bony change at approximately T5 without obvious sign of fracture or evidence of height loss. which also appears to be the location of the patient's pain. I wi'll plan to review this imaging with Dr. Avni Messina and we will determine an appropriate plan of care proceeding forward. This was discussed in detail with the patient and the patient's family and they are agreeable with this plan. 2. Patient will continue to be seen examined by medicine, oncology, and general surgery 3. We will continue to follow patient closely Time with Patient: Greater than 30 (Including history, physical examination, reviewing of imaging, and dictation) <Eron Messina - Last Filed: 12/27/18 16:27> Physical Examination Osteopathic Statement: *. No significant issues noted on an osteopathic structural exam other than those noted in the History and Physical/Consult. Results - Labs Labs: Abnormal Lab Results - Last 24 Hours (Table) 12/25/18 12/25/18 12/27/18 Range/Units 07:03 07:03 07:11 Lymphocytes # 0.6 L (1.0-4.8) k/uL Sodium (137-145) mmol/L Chloride (98-107) mmol/L Creatinine (0.66-1.25) mg/dL Alkaline Phosphatase (38-126) U/L Total Protein (6.3-8.2) g/dL Albumin (PEP) 3.36 L (3.80-4.90) g/dL Angiotensin Convert Enz 65 H (8-52) U/L 12/27/18 Range/Units 07:11 Lymphocytes # (1.0-4.8) k/uL Sodium 132 L (137-145) mmol/L Chloride 96 L (98-107) mmol/L Creatinine 1.34 H (0.66-1.25) mg/dL Alkaline Phosphatase 133 H (38-126) U/L Total Protein 6.1 L (6.3-8.2) g/dL Albumin (PEP) (3.80-4.90) g/dL Angiotensin Convert Enz (8-52) U/L H & H 12/24/18 12/27/18 Range/Units 09:07 07:11 Hgb 14.2 13.1 (13.0-17.5) gm/dL Hct 41.4 40.4 (39.0-53.0) % Coagulation 12/24/18 12/27/18 Range/Units 09:07 07:11 INR 1.0 1.0 (<1.2) Result Diagrams: 12/27/18 07:11 12/27/18 07:11 Assessment and Plan Plan: The patient is seen and examined today at bedside. His company by his daughter. The patient is well known to our service. He had some increase in his back pain which was severe for him in the beginning of the weekend but feels that that pain has diminished. Unfortunately he has been found have significant lymphadenopathy and is currently being worked up for possible lymphoma. That workup is still active. He is not having any problems in his lower extremities. Not having weakness. His imaging does not show any new specific fracture or deformity. There is some change within the vertebral body of T5 without evidence of distraction or compression. I do not think that the T5 area is a source of his back pain. He feels he is making progress in terms of his pain with medications and is okay for him to mobilize from a spine standpoint. I would not plan any further imaging specific for his spine at this point and he can increase his activity as he tolerates. He should continue his workup for his lymphadenopathy and can follow-up with orthopedic spine outpatient basis in 2-3 weeks as needed.
[2018-12-28] MEDS: HYDROCHLOROTHIAZIDE 12.5 MG CAP PO SCH (08:17)
[2018-12-28] MEDS: ATORVASTATIN 20 MG TAB PO SCH (08:17)
[2018-12-28] MEDS: PANTOPRAZOLE 40 MG TABLET PO SCH (08:17)
[2018-12-28] MEDS: FINASTERIDE 5 MG TAB PO SCH (08:17)
[2018-12-28] MEDS: METOPROLOL TARTRATE 25 MG TAB PO SCH (08:17)
--- NOTE | 2018-12-28 08:51 | P.PN ---
Progress Note - Text Progress Note Date: 12/28/18 Patient is a very pleasant 88-year-old male who is well known to our service was seen examined at the bedside for further evaluation due to acute thoracic back pain. 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 In the breaker off of 12/24/2018 at approximately 2 AM he woke up with severe pain in his midthoracic spine. He called family who was brought to the emergency department for further evaluation. Multiple imaging modalities were taken at that time including chest x-ray, chest CT, and CT of the abdomen and pelvis. No acute findings were documented at that time per report in regards to his spine. He was found to have multiple lymphadenopathy nodules. He has been undergoing further evaluation and has been seen by medicine, general surgery, and oncology. After further discussion with Gen. surgery, patient is unable to undergo an excisional lymph node biopsy to be performed by Gen. surgery. Patient's family states this may be performed by cardiothoracic surgery. They're waiting for further evaluation by Dr. Damon in oncology. Patient states he is not currently experiencing any significant thoracic or lumbar back pain. His spine pain has improved since his admittance. He does occasionally have some pain that radiates down the right lower extremity. His pain is controlled while at rest. He denies any lower extremity weakness bilaterally. He denies any left lower extremity radiculopathy. Since his admittance to the hospital he has continued to be able to ambulate to the restroom with the assistance of a walker. His family is present at the bedside today. Patient does have a history of pacemaker placement. Patient is hard of hearing but communicates well with hearing aids in place. Physical exam: Patient is awake, alert, and oriented 3 Vital signs stable Good chest excursion with deep inspiration and expiration Dorsiflexion, plantarflexion, and extensor hallucis longus positive sustained bilaterally Lower extremity strength 5/5 bilaterally Patient is able to move legs independently in bed without significant difficulty No signs or symptoms of DVT; no calf pain No pain with internal and external rotation of the hips bilaterally Neurovascularly intact Pertinent studies: Chest CT taken on 12/24/2018: Interval development of multiple very prominent lymphadenopathy within the superior mediastinum, left supraclavicular region, retrocrural, and celiac axis level and which consider lymphoma within the differential along with possibility of metastatic disease due to patient's previous history; apparent soft tissue nodules within the bilateral lung apices ; lower thoracic degenerative disc disease; overall thoracic alignment appears to be adequately maintained; no evidence of significant vertebral body height loss; evidence of some bony change at approximately T5 CT of the chest abdomen and pelvis taken on 12/24/2018: Markedly enlarged right iliac chain lymph nodes with large lymph nodes in the periaortic, retrocrural, and celiac axis region within the abdomen; mediastinal adenopathy is noted on the CT performed earlier in the day in differential diagnosis should include lymphoma; no obvious lower thoracic or lumbar compression fracture deformity; L2-3 severe complete disc height loss with osteophytic spurring; L4-5 disc space changes; L5-S1 severe degenerative disease with vacuum disc phenomenon; no obvious listhesis Assessment: Acute mid thoracic back pain without injury History of low back pain with history of multiple lumbar surgeries Right lower extremity radiculopathy Lower thoracic, lumbar, lumbosacral degenerative disc disease Very prominent diffuse lymphadenopathy within the superior mediastinum, left supraclavicular region, retrocrural, and celiac axis level Possible diagnoses of lymphoma Plan: 1. After physical examination the patient, reviewing of imaging, further discussion with the patient and his family, and further evaluation by Dr. Avni Messina, we will plan to continue conservative treatment in regards to his acute thoracic back pain. Patient has had significant improvement of the symptoms since his admittance. He is not currently experiencing any significant thoracic or lumbar back pain. Imaging does not show evidence of a specific fracture or deformity. At this time he will be cleared for discharge from an orthopedic spine standpoint. We will plan have him follow up in approximately 2 -3 weeks in the outpatient setting for further evaluation. He will be given a prescription for Thorp 5 mg/325 mg which she may take an outpatient setting as prescribed as needed for relief of his symptoms. MAPS has been reviewed today, 12/28/2018, with an Overall Overdose Risk Score of . An "Opiod Start Talking" Forn has been signed by the patient and myself in place in the patient's chart. A prescription has been written for Thorp 5 mg/325 mg take 1 tab daily as needed for pain, dispensed #7. 2. Patient will continue undergoing further workup for very prominent diffuse lymphadenopathy 3. Patient continue to be seen examined by Dr. Damon in oncology and medicine
[2018-12-28] MEDS ORDERED: DOCUSATE 100 MG CAP PO SCH (11:30)
[2018-12-28 12:21] VITALS: BP 144/65; PULSE 90; RESP 18; TEMP 98
--- NOTE | 2018-12-28 20:09 | P.PN ---
Subjective Progress Note Date: 12/28/18 Principal diagnosis: Back pain, lymphadenopathy, Hx laryngeal ca Patient seen today in follow-up. He is doing much better with his back pain. Analgesics are working well. She is able to eat and drink without discomfort, he denies any shortness of breath, difficulty swallowing, abdominal discomfort or acute changes in bowel or bladder, he is ambulatory. Objective - Vital Signs Vital signs: Vital Signs Temp 98 F 12/28/18 12:20 Pulse 90 12/28/18 12:20 Resp 18 12/28/18 12:20 BP 144/65 12/28/18 12:20 Pulse Ox 95 12/28/18 12:20 Intake & Output 12/28/18 12/28/18 12/29/18 06:59 18:59 06:59 Intake Total 1180 Balance 1180 Weight 88.7 kg Intake: Oral 1180 Other: Voiding Method Toilet Toilet Diaper Diaper # Voids 3 - Exam alert and oriented 4,no acute distress, respirations even and unlabored, pleasant affect, patient looks well, family at bedside - Constitutional General appearance: Present: average body habitus, cooperative, no acute distress - Labs CBC & Chem 7: 12/27/18 07:11 12/27/18 07:11 Assessment and Plan (1) Mediastinal lymphadenopathy Narrative/Plan: Work up thus far is certainly suggestive of an underlying inflammatory process, but no definitive diagnosis. Patient has been evaluated by surgery. Surgery is recommending a percutaneous biopsy due to the depth of lymph nodes. Plan is for patient to be scheduled for a core biopsy. Copies of patient's CT scans of been requested. Our office will set up the appointment and contact patient's daughter, at her request, with appointment date and time. Pt and family agree with plan. Status: Acute Priority: High Code(s): R59.0 - LOCALIZED ENLARGED LYMPH NODES SNOMED Code(s): 61387663 Plan: Patient will continue to follow with Orthopedics as he is doing very well with their plan of care.
== END 2018-12-28 14:15 | disposition home health service (06) | DRG 552 ==
LOC: EC 08:33 → 3NMEDONC 11:47
PROVIDERS: ADMIT Internal Medicine; ATTEND Internal Medicine
DX: M54.6 Pain in thoracic spine (principal); I11.0 Hypertensive heart disease with heart failure; I50.9 Heart failure, unspecified; G62.9 Polyneuropathy, unspecified; R13.10 Dysphagia, unspecified; I65.29 Occlusion and stenosis of unspecified carotid artery; E78.5 Hyperlipidemia, unspecified; H91.90 Unspecified hearing loss, unspecified ear; I25.10 Atherosclerotic heart disease of native coronary artery without angina pectoris; I25.2 Old myocardial infarction; K21.9 Gastro-esophageal reflux disease without esophagitis; M51.16 Intervertebral disc disorders with radiculopathy, lumbar region; M51.17 Intervertebral disc disorders with radiculopathy, lumbosacral region; M51.34 Other intervertebral disc degeneration, thoracic region; N40.0 Benign prostatic hyperplasia without lower urinary tract symptoms; G89.29 Other chronic pain; K59.00 Constipation, unspecified; M19.90 Unspecified osteoarthritis, unspecified site; R59.1 Generalized enlarged lymph nodes; R91.8 Other nonspecific abnormal finding of lung field; Z79.899 Other long term (current) drug therapy; Z79.82 Long term (current) use of aspirin; Z96.1 Presence of intraocular lens; Z95.5 Presence of coronary angioplasty implant and graft; Z95.0 Presence of cardiac pacemaker; Z92.3 Personal history of irradiation; Z92.21 Personal history of antineoplastic chemotherapy; Z87.891 Personal history of nicotine dependence; Z86.73 Personal history of transient ischemic attack (TIA), and cerebral infarction without residual deficits; Z85.21 Personal history of malignant neoplasm of larynx; Z80.8 Family history of malignant neoplasm of other organs or systems; Z82.49 Family history of ischemic heart disease and other diseases of the circulatory system
CPT/HCPCS: 36415; 71046; 71260; 74176; 80053; 81003; 82164; 82550; 82553; 82784; 83615; 83690; 83735; 83883; 84165; 84484; 84550; 85025; 85610; 85652; 85730; 86038; 86140; 86431; 93005; 99285

== ENCOUNTER → 2019-06-10 | Outpatient (CLI) | payer MEDICARE ==
--- NOTE | 2019-06-10 11:47 | XR ---
EXAMINATION TYPE: XR Hip Complete LT DATE OF EXAM: 06/10/2019 COMPARISON: None HISTORY: Pain TECHNIQUE: 2 view left hip FINDINGS: Femoral head articulates with the acetabulum. No acute fractures or dislocations are eviden t. 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 IMPRESSION: 1. No acute fracture evident. 2. Multiple sclerotic lesions suspicious for metastasis.
--- NOTE | 2019-06-10 12:48 | XR ---
EXAMINATION TYPE: XR femur LT DATE OF EXAM: 06/10/2019 COMPARISON: None HISTORY: Pain TECHNIQUE: 2 view left femur FINDINGS: No acute osseous abnormality is evident. Within the proximal femur Some sclerotic lesions suggestive for a sclerotic metastasis. There appears be some sclerosis within the pelvis. IMPRESSION: 1. No acute osseous abnormality. 2. 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
--- NOTE | 2019-06-10 12:49 | XR ---
EXAMINATION TYPE: XR tibia fibula LT DATE OF EXAM: 06/10/2019 CLINICAL HISTORY: Pain TECHNIQUE: Two views of the left leg are obtained. COMPARISON: None. FINDINGS: There is no acute fracture or dislocation seen in the left tibia or fibula. The left knee and ankle joints appear within normal limits. The overlying soft tissue appears unremarkable. IMPRESSION: There is no acute fracture or dislocation seen in the left tibia or fibula.
--- NOTE | 2019-06-10 12:50 | XR ---
EXAMINATION TYPE: XR shoulder complete LT DATE OF EXAM: 06/10/2019 COMPARISON: NONE HISTORY: Pain TECHNIQUE: Shoulder examined in 3 views FINDINGS: The humeral head articulates with the glenoid. The acromio-clavicular junction is normal. No acute fractures or dislocations are evident. A follow up study can be performed 7-10 days from acute trauma for continued pain. IMPRESSION: 1. Normal left Shoulder
--- NOTE | 2019-06-10 13:02 | XR ---
EXAMINATION TYPE: XR knee limited LT DATE OF EXAM: 06/10/2019 COMPARISON: None HISTORY: Pain TECHNIQUE: 2 view left knee FINDINGS: Meniscal calcifications present. There is mild narrowing of the medial compartment joint sp alfredo. No acute fractures are evident. Joint effusion is not identified. IMPRESSION: 1. Minimal degenerative changes left knee
== END | disposition home or self-care (01) ==
LOC: RADXRMAIN 10:04
PROVIDERS: ATTEND Internal Medicine Hematology & Oncology
DX: M17.12 Unilateral primary osteoarthritis, left knee (principal); M25.852 Other specified joint disorders, left hip; C61 Malignant neoplasm of prostate; R59.0 Localized enlarged lymph nodes; E78.00 Pure hypercholesterolemia, unspecified; I10 Essential (primary) hypertension
CPT/HCPCS: 73502

== ENCOUNTER 2020-02-01 13:38 | Observation (INO) | payer MEDICARE ==
[2020-02-01] MEDS ORDERED: SODIUM CHLORIDE 0.9% 1,000 ML IV STA ×2 (13:49)
--- NOTE | 2020-02-01 14:10 | ED ---
Dizziness HPI - General Chief Complaint: Syncope Stated Complaint: Syncope Time Seen by Provider: 02/01/20 13:38 Source: patient Mode of arrival: ambulatory Limitations: no limitations - History of Present Illness Initial Comments: This 89-year-old male who was at a hearing aid facility today when he became lightheaded dizzy and passed out. Per his daughter who was present he was in today from a car using his walker if he get a short distance he told her that he could not make it. He started going down he does remember this carbonate or approximate 10 minutes per the patient's daughter no trauma he was helped down to the ground EMS was called he was initially unresponsive he was found have a blood pressure 74/84. When he became supine blood pressure was up to the 120s systolic. He has some residual confusion after this time he arrived. He was more awake and alert. He denies any chest pain headache dizziness blurry vision nausea vomiting or other symptoms. He does have a history of prostate cancer and bone cancer and is on vitamin C supplementation at this time for that no recent cough cold flu symptoms no other modifying factors. MD Complaint: dizziness, lightheadedness, near syncope - Related Data Home Medications Medication Instructions Recorded Confirmed Finasteride 5 mg PO DAILY 04/12/14 12/24/18 Metoprolol Tartrate [Lopressor] 25 mg PO TID 04/12/14 12/24/18 Pantoprazole Sodium 40 mg PO BID 04/12/14 12/24/18 Simvastatin [Zocor] 40 mg PO DAILY 04/15/17 12/24/18 Nitroglycerin Sl Tabs [Nitrostat] 0.4 mg SUBLINGUAL Q5M PRN 05/03/17 12/24/18 Aspirin 325 mg PO HS 04/27/18 12/24/18 Previous Rx's Medication Instructions Recorded Acetaminophen Tab [Tylenol] 650 mg PO Q6HR PRN tab 06/11/17 Hydrochlorothiazide [Hydrodiuril] 12.5 mg PO DAILY #30 cap 04/29/18 Docusate [Colace] 100 mg PO BID cap 12/28/18 Hydrocodone/Acetaminophen [[place] 1 each PO DAILY PRN #7 tab 12/28/18 5-325] Allergies Allergy/AdvReac Type Severity Reaction Status Date / Time No Known Allergies Allergy Verified 12/24/18 08:52 Review of Systems ROS Statement: Those systems with pertinent positive or pertinent negative responses have been documented in the HPI. ROS Other: All systems not noted in ROS Statement are negative. 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 Last Myocardial Infarction Date:: possible ND in 1991 during cardiac cath. History of Any Multi-Drug Resistant Organisms: None Reported Past Surgical History: Back Surgery Additional Past Surgical History / Comment(s): 2012 pacemaker, PCI with stents 1991 at [facility], suspension microlarygoscopy, lung biopsy at [facility], colonoscopy, L elbow surgery, lumbar surgery x3, bilateral cataract removals/lens implants. Past Anesthesia/Blood Transfusion Reactions: No Reported Reaction Additional Past Anesthesia/Blood Transfusion Reaction / Comment(s): pt is independant no assistive devices lives in a single level home no steps. no outside services recieved. no past service. 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 Date of Last Stent Placement:: 1991 Past Psychological History: No Psychological Hx Reported Smoking Status: Former smoker Past Alcohol Use History: None Reported Past Drug Use History: None Reported - Past Family History Mother Family Medical History: No Reported History Additional Family Medical History / Comment(s): was killed in accident Father Additional Family Medical History / Comment(s): "heart problems" and brain cancer. Father had history of myocardial infarction and pacemaker placement. Brother(s) Additional Family Medical History / Comment(s): Patient does not have any brothers or sisters. Daughter(s) Additional Family Medical History / Comment(s): Patient has 2 sons and 2 daughters. One daughter has coronary artery disease. General Exam - General Exam Comments Initial Comments: This a well-developed well-nourished awake alert oriented times 3 male Limitations: no limitations General appearance: alert, in no apparent distress Head exam: Present: atraumatic, normocephalic, normal inspection Eye exam: Present: normal appearance, PERRL, EOMI. Absent: scleral icterus, conjunctival injection, periorbital swelling ENT exam: Present: mucous membranes dry Neck exam: Present: normal inspection. Absent: tenderness, meningismus, lymphadenopathy Respiratory exam: Present: normal lung sounds bilaterally. Absent: respiratory distress, wheezes, rales, rhonchi, stridor Cardiovascular Exam: Present: regular rate, normal rhythm, normal heart sounds. Absent: systolic murmur, diastolic murmur, rubs, gallop, clicks GI/Abdominal exam: Present: soft, normal bowel sounds. Absent: distended, tenderness, guarding, rebound, rigid Extremities exam: Present: normal inspection, full ROM, normal capillary refill. Absent: tenderness, pedal edema, joint swelling, calf tenderness Back exam: Present: normal inspection Neurological exam: Present: alert, oriented X3, CN II-XII intact Psychiatric exam: Present: normal affect, normal mood Skin exam: Present: warm, dry, intact, normal color. Absent: rash Course Vital Signs 02/01/20 02/01/20 02/01/20 13:40 14:06 15:38 Temperature 97.6 F Pulse Rate 70 68 Pulse Rate [ 65 Sitting] Pulse Rate [ 73 Standing] Pulse Rate [ 64 Supine] Respiratory 18 18 Rate Blood Pressure 121/71 111/54 Blood Pressure 108/58 [Sitting] Blood Pressure 73/49 [Standing] Blood Pressure 108/61 [Supine] O2 Sat by Pulse 94 L 97 Oximetry EKG Findings - EKG Results: EKG: interpreted by CASEY (Pacemaker rhythm a 63 ME interval 308 QRS 194 QT since QTC 522/534) Medical Decision Making - Medical Decision Making I did discuss findings with patient family also with Dr. Bolivar. Patient still feeling lightheaded and dizzy with movements however at rest C-spine the presentation consistent with dehydration and orthostatic hypotension he will be admitted for continued IV fluids. He does demonstrate also renal insufficiency. - Lab Data Result diagrams: 02/01/20 13:55 02/01/20 13:55 Lab Results 02/01/20 02/01/20 02/01/20 Range/Units 13:55 13:55 13:55 WBC 7.3 (3.8-10.6) k/uL RBC 4.22 L (4.30-5.90) m/uL Hgb 13.3 (13.0-17.5) gm/dL Hct 39.2 (39.0-53.0) % MCV 93.0 (80.0-100.0) fL MCH 31.6 (25.0-35.0) pg MCHC 34.0 (31.0-37.0) g/dL RDW 13.5 (11.5-15.5) % Plt Count 341 (150-450) k/uL Neutrophils % 81 % Lymphocytes % 10 % Monocytes % 5 % Eosinophils % 3 % Basophils % 1 % Neutrophils # 5.9 (1.3-7.7) k/uL Lymphocytes # 0.8 L (1.0-4.8) k/uL Monocytes # 0.3 (0-1.0) k/uL Eosinophils # 0.2 (0-0.7) k/uL Basophils # 0.1 (0-0.2) k/uL PT 9.6 (9.0-12.0) sec INR 0.9 (<1.2) APTT 19.2 L (22.0-30.0) sec Sodium 134 L (137-145) mmol/L Potassium 4.2 (3.5-5.1) mmol/L Chloride 99 (98-107) mmol/L Carbon Dioxide 23 (22-30) mmol/L Anion Gap 12 mmol/L BUN 25 H (9-20) mg/dL Creatinine 1.65 H (0.66-1.25) mg/dL Est GFR (CKD-EPI)AfAm 43 (>60 ml/min/1.73 sqM) Est GFR (CKD-EPI)NonAf 37 (>60 ml/min/1.73 sqM) Glucose 113 H (74-99) mg/dL Calcium 9.3 (8.4-10.2) mg/dL Magnesium 2.3 (1.6-2.3) mg/dL Total Bilirubin 0.4 (0.2-1.3) mg/dL AST 25 (17-59) U/L ALT 12 (4-49) U/L Alkaline Phosphatase 47 (38-126) U/L Creatine Kinase 47 L (55-170) U/L Troponin I (0.000-0.034) ng/mL Total Protein 6.7 (6.3-8.2) g/dL Albumin 4.0 (3.5-5.0) g/dL Urine Color Urine Appearance (Clear) Urine pH (5.0-8.0) Ur Specific Ava (1.001-1.035) Urine Protein (Negative) Urine Glucose (UA) (Negative) Urine Ketones (Negative) Urine Blood (Negative) Urine Nitrite (Negative) Urine Bilirubin (Negative) Urine Urobilinogen (<2.0) mg/dL Ur Leukocyte Esterase (Negative) 02/01/20 02/01/20 Range/Units 13:55 15:28 WBC (3.8-10.6) k/uL RBC (4.30-5.90) m/uL Hgb (13.0-17.5) gm/dL Hct (39.0-53.0) % MCV (80.0-100.0) fL MCH (25.0-35.0) pg MCHC (31.0-37.0) g/dL RDW (11.5-15.5) % Plt Count (150-450) k/uL Neutrophils % % Lymphocytes % % Monocytes % % Eosinophils % % Basophils % % Neutrophils # (1.3-7.7) k/uL Lymphocytes # (1.0-4.8) k/uL Monocytes # (0-1.0) k/uL Eosinophils # (0-0.7) k/uL Basophils # (0-0.2) k/uL PT (9.0-12.0) sec INR (<1.2) APTT (22.0-30.0) sec Sodium (137-145) mmol/L Potassium (3.5-5.1) mmol/L Chloride (98-107) mmol/L Carbon Dioxide (22-30) mmol/L Anion Gap mmol/L BUN (9-20) mg/dL Creatinine (0.66-1.25) mg/dL Est GFR (CKD-EPI)AfAm (>60 ml/min/1.73 sqM) Est GFR (CKD-EPI)NonAf (>60 ml/min/1.73 sqM) Glucose (74-99) mg/dL Calcium (8.4-10.2) mg/dL Magnesium (1.6-2.3) mg/dL Total Bilirubin (0.2-1.3) mg/dL AST (17-59) U/L ALT (4-49) U/L Alkaline Phosphatase (38-126) U/L Creatine Kinase (55-170) U/L Troponin I <0.012 (0.000-0.034) ng/mL Total Protein (6.3-8.2) g/dL Albumin (3.5-5.0) g/dL Urine Color Light Yellow Urine Appearance Clear (Clear) Urine pH 6.5 (5.0-8.0) Ur Specific Ava 1.013 (1.001-1.035) Urine Protein Trace H (Negative) Urine Glucose (UA) Negative (Negative) Urine Ketones Negative (Negative) Urine Blood Negative (Negative) Urine Nitrite Negative (Negative) Urine Bilirubin Negative (Negative) Urine Urobilinogen <2.0 (<2.0) mg/dL Ur Leukocyte Esterase Negative (Negative) - Radiology Data Radiology results: report reviewed (I did review the imaging and reports evidence of a patchy rate mid lung area CT negative.), image reviewed Disposition Clinical Impression: Syncope due to orthostatic hypotension, Dehydration, Renal insufficiency syndrome Disposition: ADMITTED IP TO THIS [facility] Condition: Fair Referrals: Armin Mckeon MD [Primary Care Provider] - 1-2 days
[2020-02-01 14:27] LABS: Calcium 9.3 mg/dL (8.4-10.2); Magnesium 2.3 mg/dL (1.6-2.3); Potassium 4.2 mmol/L (3.5-5.1); Total Bilirubin 0.4 mg/dL (0.2-1.3); Total Protein 6.7 g/dL (6.3-8.2)
--- NOTE | 2020-02-01 14:30 | XR ---
EXAMINATION TYPE: XR chest 2V DATE OF EXAM: 02/01/2020 COMPARISON: 12/24/2018 HISTORY: Syncope TECHNIQUE: Frontal and lateral views of the chest are obtained. FINDINGS: There is no pulmonary vascular congestion, pleural effusion, or pneumothorax seen. Patchy right-sided opacity could represent atelectasis or pulmonary nodule. Multilead left-sided cardiac dev ice is seen with enlarged cardiac mediastinal silhouette. Osseous structures are intact. IMPRESSION: Faint small patchy right midlung opacity could represent focal atelectasis or nodule. No nemergent follow-up CT thorax could be performed for further evaluation.
[2020-02-01 14:36] LABS: INR 0.9 (<1.2); Prothrombin Time 9.6 sec (9.0-12.0)
[2020-02-01 14:41] LABS: Partial Thromboplastin Time 19.2 sec (22.0-30.0)
[2020-02-01 14:42] LABS: Basophils # (A) 0.1 k/uL (0-0.2); Basophils % (A) 1 %; Eosinophils # (A) 0.2 k/uL (0-0.7); Eosinophils % (A) 3 %; HCT 39.2 % (39.0-53.0); HGB 13.3 gm/dL (13.0-17.5); Lymphocytes # (A) 0.8 k/uL (1.0-4.8); Lymphocytes % (A) 10 %; MCH 31.6 pg (25.0-35.0); Mean Platelet Volume 7.2; Monocytes # (A) 0.3 k/uL (0-1.0); Monocytes % (A) 5 %; Neutrophils # (A) 5.9 k/uL (1.3-7.7); Neutrophils % (A) 81 %; Platelet Count 341 k/uL (150-450); RBC 4.22 m/uL (4.30-5.90); RDW 13.5 % (11.5-15.5); WBC 7.3 k/uL (3.8-10.6)
[2020-02-01 16:03] LABS: Appearance,Urine Clear (Clear); Bilirubin,Urine Negative (Negative); Blood,Urine Negative (Negative); Color,Urine Light Yellow; Glucose,Urine (UA) Negative (Negative); Ketones,Urine Negative (Negative); Leukocyte Esterase,Urine Negative (Negative); Nitrite,Urine Negative (Negative); PH, Urine 6.5 (5.0-8.0); Protein,Urine Trace (Negative); Specific Gravity,Urine 1.013 (1.001-1.035); Urobilinogen,Urine <2.0 mg/dL (<2.0)
--- NOTE | 2020-02-01 17:06 | CT ---
EXAMINATION TYPE: CT brain wo con DATE OF EXAM: 02/01/2020 COMPARISON: 04/27/2018 HISTORY: Syncope. CT DLP: 1149.4 mGycm Automated exposure control for dose reduction was used. There is cerebral cortical atrophy. There is no mass effect nor midline shift. There is no sign of in tracranial hemorrhage. The calvarium is intact. IMPRESSION: Cerebral atrophy. No acute intracranial abnormality. No change.
[2020-02-01] MEDS ORDERED: NALOXONE 0.4 MG/ML 1 ML VIAL IV PRN (17:17)
[2020-02-01] MEDS ORDERED: ACETAMINOPHEN TAB 325 MG TAB PO PRN (17:17)
[2020-02-01] MEDS ORDERED: NITROGLYCERIN SL TABS 0.4 MG TAB SUBLINGUAL PRN (17:18)
[2020-02-01] MEDS ORDERED: HYDROcodone/APAP 5-325MG 1 EACH TAB PO PRN (17:18)
[2020-02-01] MEDS: SODIUM CHLORIDE 0.9% 1,000 ML IV SCH (18:25)
[2020-02-01] MEDS: PANTOPRAZOLE 40 MG TABLET PO SCH (18:26)
--- NOTE | 2020-02-01 19:14 | P.HPIM ---
History of Present Illness H&P Date: 02/01/20 Chief Complaint: Syncope/possible seizure This is an 89-year-old male patient of Dr. Mckeon, Dr. 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, gastroesophageal reflux disease, hyperlipidemia, peripheral neuropathy, hypertension, patient was at [facility] check venous hearing aids and he started to walk with his walker and all of a sudden he felt extremely dizzy lightheaded became pale and his daughter was with him and she is him down to the walker and all of a sudden he stiffened up and lost control of his urine and his eye got dilated rolled back and the patient became unresponsive eventually EMS was cold he was out for about 5-8 minutes according to the daughter the patient did not have any pulse or he did not have any breath at that time and he could not get any blood pressure on him however he was a DO NOT RESUSCITATE because of his 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 and they elected not to resuscitate him to put him on the gurney to try to put him in the EMS and the patient regained consciousness he ended up coming to the ER at [facility] had a computed tomography scan of the brain that showed brain atrophy without evidence of acute abnormality was hypotensive extremely dry he did receive IV fluid and his blood pressure improved and he the patient went back to baseline however because of the presentation he was admitted to the hospital for evaluation and possible seizure activity patient could not have an MRI of the brain as the patient does have a pacemaker he could not have a computed tomography scan of the brain without contrast as the patient creatinine and GFR were decreased. Review of Systems Constitutional: Reports fatigue, Reports weakness, Denies anorexia, Denies chronic headaches, Denies weight loss Eyes: bilateral blurred vision Ears: bilateral: decreased hearing Ears, nose, mouth and throat: Denies dysphagia, Denies neck lump, Denies swelling in throat, Denies sore throat Cardiovascular: Reports decreased exercise tolerance, Reports dyspnea on exertion, Reports lightheadedness, Reports syncope, Denies chest pain, Denies rapid heart beat, Denies shortness of breath Respiratory: Denies congestion, Denies cough, Denies cough with sputum, Denies home oxygen, Denies sleep apnea, Denies snoring, Denies wheezing Gastrointestinal: Denies abdominal pain, Denies BRBPR, Denies excessive gas, Denies heartburn, Denies melena, Denies nausea, Denies vomiting Genitourinary: Reports nocturia Musculoskeletal: Denies myalgias Musculoskeletal: absent: ankle pain, ankle stiffness, ankle swelling, elbow pain, elbow stiffness, elbow swelling, foot pain, foot stiffness, foot swelling, hand pain, hand stiffness, hand swelling, hip pain, hip stiffness, hip swelling, knee pain, knee stiffness, knee swelling, shoulder pain, shoulder stiffness, shoulder swelling, wrist pain, wrist stiffness, wrist swelling Integumentary: Denies pruritus, Denies rash Neurological: Denies numbness, Denies weakness Psychiatric: Denies anxiety, Denies depression Endocrine: Denies fatigue, Denies weight change Past Medical History Past Medical History: Coronary Artery Disease (CAD), Cancer, Heart Failure, CVA/TIA, GERD/Reflux, Hyperlipidemia, Hypertension, Myocardial Infarction (ME), Osteoarthritis (OA), Prostate Disorder, Syncope, Vascular Disorder Additional Past Medical History / Comment(s): 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 Last Myocardial Infarction Date:: possible [place] in 1991 during cardiac cath. History of Any Multi-Drug Resistant Organisms: None Reported Past Surgical History: Back Surgery Additional Past Surgical History / Comment(s): 2012 pacemaker, PCI with stents 1992 at [facility], suspension microlarygoscopy, lung biopsy at [facility], colonoscopy, L elbow surgery, lumbar surgery x3, bilateral cataract removals/lens implants. Past Anesthesia/Blood Transfusion Reactions: No Reported Reaction Additional Past Anesthesia/Blood Transfusion Reaction / Comment(s): pt is independant no assistive devices lives in a single level home no steps. no outside services recieved. no past service. 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 Date of Last Stent Placement:: 1991 Past Psychological History: No Psychological Hx Reported Smoking Status: Former smoker Past Alcohol Use History: None Reported Past Drug Use History: None Reported - Past Family History Mother Family Medical History: No Reported History (Mother at age 53 in a motor vehicle accident and also had a history of colon cancer and pancreatic cancer.) Additional Family Medical History / Comment(s): was killed in accident Father Family Medical History: Cancer (Father at age of 78 from prostate cancer with metastases to the bone.) Additional Family Medical History / Comment(s): "heart problems" and brain cancer. Father had history of myocardial infarction and pacemaker placement. Brother(s) Additional Family Medical History / Comment(s): Patient does not have any brothers or sisters. Daughter(s) Additional Family Medical History / Comment(s): Patient has 2 sons and 2 daughters. One daughter has coronary artery disease. Son(s) Family Medical History: Cancer (Patient has 2 sons one of them with prostate cancer.) Medications and Allergies Home Medications Medication Instructions Recorded Confirmed Type Finasteride 5 mg PO DAILY@1000 04/12/14 02/01/20 History Metoprolol Tartrate [Lopressor] 25 mg PO BID@1000,1800 04/12/14 02/01/20 History Pantoprazole Sodium 40 mg PO BID@1000,1800 04/12/14 02/01/20 History Simvastatin [Zocor] 40 mg PO DAILY@1000 04/15/17 02/01/20 History Aspirin 325 mg PO DAILY@1000 04/27/18 02/01/20 History Acetaminophen/Diphenhydramine 2 tab PO HS 02/01/20 02/01/20 History [Tylenol PM 500-25mg] Hydrochlorothiazide 12.5mg Tab 12.5 mg PO DAILY@1000 02/01/20 02/01/20 History Zoledronic Acid [Zometa] 1 dose IV Q28D 02/01/20 02/01/20 History Allergies Allergy/AdvReac Type Severity Reaction Status Date / Time No Known Allergies Allergy Verified 02/01/20 18:59 Physical Exam Vitals: Vital Signs Temp Pulse Pulse Pulse Pulse Resp BP 02/01/20 18:28 69 18 111/54 02/01/20 15:38 68 18 111/54 02/01/20 14:06 65 73 64 02/01/20 13:40 97.6 F 70 18 121/71 BP BP BP Pulse Ox 02/01/20 18:28 97 02/01/20 15:38 97 02/01/20 14:06 108/58 73/49 108/61 02/01/20 13:40 94 L Intake and Output 02/01/20 02/01/20 02/01/20 06:59 14:59 22:59 Other: Weight 92.986 kg HEENT: Head is atraumatic, normocephalic, pupils were small and sluggish reaction to light extraocular muscle movement were intact, mucous membranes of the mouth very dry. Neck: Supple, no JVD. Chest: Decreased breath sounds at the bases, few rhonchi, no expiratory wheezes, no chest with tenderness, no intercostal retractions. Heart: First heart sound is depressed, second heart sound is normal, there is systolic ejection murmur 2/6 located in the left sternal border, there's Pacemaker located left upper precordium. Abdomen: Soft, nontender, nondistended, positive bowel sounds Extremities: No edema, no calf tenderness, dorsalis pedis +1 bilaterally. Neurologic examination: Patient is awake alert and oriented 3, cranial nerves III-12 appear grossly intact, muscle power 4 out of 5 in upper extremities and 4 out of 5 in lower extremities, Babinski's were flexor bilaterally. Results CBC & Chem 7: 02/01/20 13:55 02/01/20 13:55 Labs: Abnormal Lab Results - Last 24 Hours (Table) 02/01/20 02/01/20 02/01/20 Range/Units 13:55 13:55 13:55 RBC 4.22 L (4.30-5.90) m/uL Lymphocytes # 0.8 L (1.0-4.8) k/uL APTT 19.2 L (22.0-30.0) sec Sodium 134 L (137-145) mmol/L BUN 25 H (9-20) mg/dL Creatinine 1.65 H (0.66-1.25) mg/dL Glucose 113 H (74-99) mg/dL Creatine Kinase 47 L (55-170) U/L Urine Protein (Negative) 02/01/20 Range/Units 15:28 RBC (4.30-5.90) m/uL Lymphocytes # (1.0-4.8) k/uL APTT (22.0-30.0) sec Sodium (137-145) mmol/L BUN (9-20) mg/dL Creatinine (0.66-1.25) mg/dL Glucose (74-99) mg/dL Creatine Kinase (55-170) U/L Urine Protein Trace H (Negative) Thrombosis Risk Factor Assmnt - DVT/VTE Prophylaxis DVT/VTE Prophylaxis: Pharmacologic Prophylaxis ordered, Mechanical Prophylaxis ordered Assessment and Plan Assessment: Assessment and plan: 1. Syncopal episode possible seizure versus vasovagal syncope. Continue IV fluid resuscitation the form of normal saline, discontinue HCTZ, patient will need to have an EEG done to rule out any seizure activity, monitor the patient very closely, monitor the patient CMP the next 24 hours, patient ideally need an MRI of the brain however it cannot be done due to his pacemaker and his computed tomography scan with contrast cannot be done as the patient creatinine is elevated. 2. 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 His last PSA was 1 patient did receive Lupron and he was taken off of it and is only taking calcium supplement. 3. Coronary artery disease status post stent placement in the , stable. Continue aspirin 81 mg once every day, continue the patient on metoprolol 25 mg orally 3 times every day and simvastatin 40 mg at bedtime. 4. Hypertension and hypertensive cardiovascular disease. Continue metoprolol 25 mg orally 3 times every day, discontinue HCTZ. 5. Hyperlipidemia. Continue simvastatin 40 mg orally bedtime. 6. Bradycardia status post pacemaker. 7. Right carotid artery disease of 80% and left 70% followed by Dr. Ashley. 8. 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 9. Gastroesophageal reflux disease and GI prophylaxis. Continue Protonix. 10. DVT prophylaxis, SCDs and NITHIN hose. 11. Admitted to inpatient. Estimate length of stay 2 midnights. 12. Patient is DO NOT RESUSCITATE.
[2020-02-01] MEDS: HEPARIN SODIUM,PORCINE 5,000 UNIT/ML 1 ML VIAL SQ SCH (22:11)
[2020-02-01] MEDS: DOCUSATE 100 MG CAP PO SCH (22:11)
[2020-02-01] MEDS: ASPIRIN 325 MG TAB PO SCH (22:11)
[2020-02-01] MEDS: METOPROLOL TARTRATE 25 MG TAB PO SCH (22:11)
[2020-02-02] MEDS: SODIUM CHLORIDE 0.9% 1,000 ML IV SCH (03:21)
[2020-02-02 06:17] LABS: Basophils # (A) 0.1 k/uL (0-0.2); Basophils % (A) 1 %; Eosinophils # (A) 0.2 k/uL (0-0.7); Eosinophils % (A) 3 %; HCT 35.1 % (39.0-53.0); HGB 11.9 gm/dL (13.0-17.5); Lymphocytes # (A) 0.8 k/uL (1.0-4.8); Lymphocytes % (A) 12 %; MCH 32.1 pg (25.0-35.0); MCV 94.3 fL (80.0-100.0); Monocytes # (A) 0.3 k/uL (0-1.0); Monocytes % (A) 5 %; Neutrophils % (A) 78 %; Platelet Count 270 k/uL (150-450); RBC 3.72 m/uL (4.30-5.90); RDW 13.5 % (11.5-15.5); WBC 6.5 k/uL (3.8-10.6)
[2020-02-02 06:28] LABS: Albumin 3.4 g/dL (3.5-5.0); Calcium 8.7 mg/dL (8.4-10.2); Total Bilirubin 0.3 mg/dL (0.2-1.3); Total Protein 5.8 g/dL (6.3-8.2)
[2020-02-02] MEDS: PANTOPRAZOLE 40 MG TABLET PO SCH ×2 (06:29→17:21)
[2020-02-02] MEDS: ATORVASTATIN 20 MG TAB PO SCH (07:54)
[2020-02-02] MEDS: FINASTERIDE 5 MG TAB PO SCH (07:54)
[2020-02-02] MEDS: METOPROLOL TARTRATE 25 MG TAB PO SCH ×3 (07:54→21:17)
[2020-02-02] MEDS: HEPARIN SODIUM,PORCINE 5,000 UNIT/ML 1 ML VIAL SQ SCH ×2 (07:55→21:17)
[2020-02-02] MEDS: DOCUSATE 100 MG CAP PO SCH ×2 (07:55→21:17)
[2020-02-02] MEDS ORDERED: HYDROCHLOROTHIAZIDE 12.5 MG CAP PO SCH (09:00)
--- NOTE | 2020-02-02 13:02 | P.PN ---
Subjective Progress Note Date: 02/02/20 This is an 89-year-old male patient of Dr. Mckeon, Dr. 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, gastroesophageal reflux disease, hyperlipidemia, peripheral neuropathy, hypertension, patient was at [employer] check venous hearing aids and he started to walk with his walker and all of a sudden he felt extremely dizzy lightheaded became pale and his daughter was with him and she is him down to the walker and all of a sudden he stiffened up and lost control of his urine and his eye got dilated rolled back and the patient became unresponsive eventually EMS was cold he was out for about 5-8 minutes according to the daughter the patient did not have any pulse or he did not have any breath at that time and he could not get any blood pressure on him however he was a DO NOT RESUSCITATE because of his 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 and they elected not to resuscitate him to put him on the gurney to try to put him in the EMS and the patient regained consciousness he ended up coming to the ER at [facility] had a computed tomography scan of the brain that showed brain atrophy without evidence of acute abnormality was hypotensive extremely dry he did receive IV fluid and his blood pressure improved and he the patient went back to baseline however because of the presentation he was admitted to the hospital for evaluation and possible seizure activity patient could not have an MRI of the brain as the patient does have a pacemaker he could not have a computed tomography scan of the brain without contrast as the patient creatinine and GFR were decreased. 02/01: Repeat lab work reveals WBC 6.5, hemoglobin 11.9, platelet count 270. Sodium is 134, BUN 22 and creatinine 1.54. Liver function tests within normal limits. Patient has been afebrile, heart rate 56, blood pressure 152/76, pulse ox 97% on room air. EEG was completed this morning and report is pending. Family would like [facility] subacute rehab and social workers obtaining authorization. PT and OT are following. Objective - Vital Signs Vital signs: Vital Signs Temp 98 F 02/02/20 04:00 Pulse 72 02/02/20 04:00 Resp 16 02/02/20 04:00 BP 158/73 02/02/20 04:00 Pulse Ox 97 02/02/20 04:00 Intake & Output 02/01/20 02/02/20 02/02/20 18:59 06:59 18:59 Intake Total 240 Output Total 575 Balance -335 Weight 92.986 kg 93.5 kg Intake: Oral 240 Output: Urine 575 Other: Voiding Method Urinal # Voids 1 - Exam Review of Systems Constitutional: Reports fatigue, Reports weakness, Denies anorexia, Denies chronic headaches, Denies weight loss Eyes: bilateral blurred vision Ears: bilateral: decreased hearing Ears, nose, mouth and throat: Denies dysphagia, Denies neck lump, Denies swelling in throat, Denies sore throat Cardiovascular: Reports decreased exercise tolerance, Reports dyspnea on exertion, Reports lightheadedness, Reports syncope, Denies chest pain, Denies rapid heart beat, Denies shortness of breath Respiratory: Denies congestion, Denies cough, Denies cough with sputum, Denies home oxygen, Denies sleep apnea, Denies snoring, Denies wheezing Gastrointestinal: Denies abdominal pain, Denies BRBPR, Denies excessive gas, Denies heartburn, Denies melena, Denies nausea, Denies vomiting Genitourinary: Reports nocturia, denies pain or burning with urination Musculoskeletal: Denies myalgias Musculoskeletal: absent: ankle pain, ankle stiffness, ankle swelling, elbow pain, elbow stiffness, elbow swelling, foot pain, foot stiffness, foot swelling, hand pain, hand stiffness, hand swelling, hip pain, hip stiffness, hip swelling, knee pain, knee stiffness, knee swelling, shoulder pain, shoulder stiffness, shoulder swelling, wrist pain, wrist stiffness, wrist swelling Integumentary: Denies pruritus, Denies rash Neurological: Denies numbness, Denies weakness Psychiatric: Denies anxiety, Denies depression Endocrine: Denies fatigue, Denies weight change Physical examination HEENT: Head is atraumatic, normocephalic, pupils were small and sluggish re action to light extraocular muscle movement were intact, mucous membranes of the mouth very dry. Neck: Supple, no JVD. Chest: Decreased breath sounds at the bases, few rhonchi, no expiratory wheezes, no chest with tenderness, no intercostal retractions. Heart: First heart sound is depressed, second heart sound is normal, there is systolic ejection murmur 2/6 located in the left sternal border, there's Pacemaker located left upper precordium. Abdomen: Soft, nontender, nondistended, positive bowel sounds Extremities: No edema, no calf tenderness, dorsalis pedis +1 bilaterally. Neurologic examination: Patient is awake alert and oriented 3, cranial nerves III-12 appear grossly intact, muscle power 4 out of 5 in upper extremities and 4 out of 5 in lower extremities. - Labs CBC & Chem 7: 02/02/20 05:48 02/02/20 05:48 Labs: Abnormal Lab Results - Last 24 Hours (Table) 02/01/20 02/01/20 02/01/20 Range/Units 13:55 13:55 13:55 RBC 4.22 L (4.30-5.90) m/uL Hgb (13.0-17.5) gm/dL Hct (39.0-53.0) % Lymphocytes # 0.8 L (1.0-4.8) k/uL APTT 19.2 L (22.0-30.0) sec Sodium 134 L (137-145) mmol/L BUN 25 H (9-20) mg/dL Creatinine 1.65 H (0.66-1.25) mg/dL Glucose 113 H (74-99) mg/dL Creatine Kinase 47 L (55-170) U/L Total Protein (6.3-8.2) g/dL Albumin (3.5-5.0) g/dL Urine Protein (Negative) 02/01/20 02/02/20 02/02/20 Range/Units 15:28 05:48 05:48 RBC 3.72 L (4.30-5.90) m/uL Hgb 11.9 L (13.0-17.5) gm/dL Hct 35.1 L (39.0-53.0) % Lymphocytes # 0.8 L (1.0-4.8) k/uL APTT (22.0-30.0) sec Sodium 134 L (137-145) mmol/L BUN 22 H (9-20) mg/dL Creatinine 1.53 H (0.66-1.25) mg/dL Glucose (74-99) mg/dL Creatine Kinase (55-170) U/L Total Protein 5.8 L (6.3-8.2) g/dL Albumin 3.4 L (3.5-5.0) g/dL Urine Protein Trace H (Negative) Assessment and Plan Plan: 1. Syncopal episode possible seizure versus vasovagal syncope. Continue IV fluid resuscitation the form of normal saline, discontinue HCTZ, EEG done to rule out any seizure activity and report is pending, monitor the patient very closely, patient may need an MRI of the brain however it cannot be done due to his pacemaker and his computed tomography scan with contrast cannot be done as the patient creatinine is elevated. 2. 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 His last PSA was 1 patient did receive Lupron and he was taken off of it and is only taking calcium supplement. 3. Coronary artery disease status post stent placement in the , stable. Continue aspirin 81 mg once every day, continue the patient on metoprolol 25 mg orally 3 times every day and simvastatin 40 mg at bedtime. 4. Hypertension and hypertensive cardiovascular disease. Continue metoprolol 25 mg orally 3 times every day, discontinue HCTZ. 5. Hyperlipidemia. Continue simvastatin 40 mg orally bedtime. 6. Bradycardia status post pacemaker. 7. Right carotid artery disease of 80% and left 70% followed by Dr. Ashley. 8. 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 9. Gastroesophageal reflux disease and GI prophylaxis. Continue Protonix. 10. DVT prophylaxis, SCDs and NITHIN hose. 11. Chronic kidney disease stage III. 12. Patient is DO NOT RESUSCITATE. Discharge plan: [facility] once authorization is obtained Impression and plan of care have been directed as dictated by the signing physician. Anneliese Rawls nurse practitioner acting as scribe for signing sheela asif.
--- NOTE | 2020-02-02 14:59 | EEG ---
ELECTROENCEPHALOGRAM REPORT PROCEDURE DATE: 02/02/2020 ELECTROENCEPHALOGRAM (EEG) REPORT: TECHNIQUE: A routine 18 channel EEG was performed with video using the 10/20 electrode placement system. HISTORY: Hypotension, syncope. CURRENT MEDICATIONS: Proscar, Tylenol, Colace, Protonix, metoprolol, acetaminophen. STUDY DURATION: 25 minutes. FINDINGS: Please note that quality of this recording was significantly limited by the presence of muscle artifact. During the rare portions of the recording with minimal artifact, the background activity consisted of 7 to 8 hertz rhythmic waveforms symmetrically distributed over both posterior quadrants. ACTIVATION: Hyperventilation: Not performed. Photic stimulation: No driving seen. Sleep: None. ABNORMALITIES: During the rare portions of the recording with relatively less artifact, intermittent diffuse 5-7 hertz polymorphic theta range slowing was seen. IMPRESSION: Limited study, abnormal EEG. The intermittent diffuse theta range slowing mentioned above is not epileptiform in nature. These findings suggest mild diffuse cerebral dysfunction. Please note that background frequencies did not exceed 8 hertz. This can be considered within normal limits given the patient's age. No definitive seizures were recorded. No definitive epileptiform activity was present. If clinical concern remains for a seizure disorder, would suggest a repeat study. This report was called to the nurse taking care of the patient at 1:50 pm on 02/02/2020. MMODL / IJN: [id number] / GARO
[2020-02-02] MEDS: ASPIRIN 325 MG TAB PO SCH (21:17)
[2020-02-03] MEDS ORDERED: LISINOPRIL 5 MG TAB PO STA (00:33)
[2020-02-03] MEDS: PANTOPRAZOLE 40 MG TABLET PO SCH (06:38)
[2020-02-03] MEDS ORDERED: LISINOPRIL 2.5 MG TAB PO SCH (09:00)
[2020-02-03 09:34] VITALS: BP 127/59; PULSE 69; RESP 20; TEMP 97.6
[2020-02-03] MEDS: DOCUSATE 100 MG CAP PO SCH (09:38)
[2020-02-03] MEDS: FINASTERIDE 5 MG TAB PO SCH (09:38)
[2020-02-03] MEDS: METOPROLOL TARTRATE 25 MG TAB PO SCH (09:38)
[2020-02-03] MEDS: ATORVASTATIN 20 MG TAB PO SCH (09:38)
[2020-02-03] MEDS: HEPARIN SODIUM,PORCINE 5,000 UNIT/ML 1 ML VIAL SQ SCH (09:39)
--- NOTE | 2020-02-03 13:31 | CDI ---
Documentation Clarification Form Date: 02/03/2020 01:13:27 PM From: Isadora Mann RN CCDS Admit Date: 02/01/2020 05:17:00 PM Patient Name: Tigre Rodriguez Visit Number: [id number] Discharge Date: ATTENTION: The Clinical Documentation Specialists (CDI) and [facility] Coding Staff appreciate your assistance in clarifying documentation. Please respond to the clarification below the line at the bottom and electronically sign. The CDI & [facility] Coding staff will review the response and follow-up if needed. Please note: Queries are made part of the Legal Health Record. If you have any questions, please contact the author of this message via ITS. Dr. Mary Kate Bolivar Heart Failure is documented in the H & P 01/31 and in subsequent documentation History/Risk Factors: 89-year-old male presents to the ED for being lightheaded, dizzy and passing out. Medical history of Prostate cancer and bone cancer, HTN, CAD, Pacemaker and Carotid artery disease. Clinical Indicators: VS/Pulse OX: 01/31 121/71 70 18 18 94% ra Echocardiogram Results: 04/28/2018 Mild concentric left ventricular hypertrophy. Overall left ventricular systolic function is normal with an EF between 55-60%. Right ventricle is mildly enlarged. Chest X Ray:01/31 No pulmonary vascular congestion, pleural effusion or pneumothorax seen. Patchy right sided opacity could represent atelectasis. Home meds Lopressor 25mg po TID, Hydrochlorothiazide 12.5mg po daily Treatment: 01/31 Lopressor 25mg po TID, 02/01 Hydrochlorothiazide 12.5mg po daily and discontinued 02/01 In your professional opinion, can you please clarify the acuity and type of CHF if known? Chronic Diastolic Heart Failure Heart Failure Ruled Out Unable to Determine Other, please specify (Last Revision: February 2018) Chronic diastolic heart failure MTDD
--- NOTE | 2020-02-03 15:10 | P.DS ---
Providers Date of admission: 02/01/20 17:17 Expected date of discharge: 02/03/20 Attending physician: Mary Kate Bolivar Primary care physician: Armin [facility] Course: This is an 89-year-old male patient of Dr. Mckeon, Dr. 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, gastroesophageal reflux disease, hyperlipidemia, peripheral neuropathy, hypertension, patient was at [employer] venous hearing aids and he started to walk with his walker and all of a sudden he felt extremely dizzy lightheaded became pale and his daughter was with him and she is him down to the walker and all of a sudden he stiffened up and lost control of his urine and his eye got dilated rolled back and the patient became unresponsive eventually EMS was cold he was out for about 5-8 minutes according to the daughter the patient did not have any pulse or he did not have any breath at that time and he could not get any blood pressure on him however he was a DO NOT RESUSCITATE because of his 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 and they elected not to resuscitate him to put him on the gurney to try to put him in the EMS and the patient regained consciousness he ended up coming to the ER at [facility] had a computed tomography scan of the brain that showed brain atrophy without evidence of acute abnormality was hypotensive extremely dry he did receive IV fluid and his blood pressure improved and he the patient went back to baseline however because of the presentation he was admitted to the hospital for evaluation and possible seizure activity patient could not have an MRI of the brain as the patient does have a pacemaker he could not have a computed tomography scan of the brain without contrast as the patient creatinine and GFR were decreased. 3/5: EEG is normal for age. Patient denies any symptoms overnight. He denies any lightheadedness or dizziness, no chest pain or shortness of breath. Repeat orthostatic vital signs negative. Pulse ox 96% on room air, heart rate 73, afebrile, blood pressure 118/55. He has been evaluated by physical therapy recommends supervision only required. Insurance authorization has been denied for subacute rehab. Discussed discharge planning with the patient's daughter at the bedside and patient will be returning home with her. She is working on AFC placement. Home care has been arranged by medical case manager. Patient will be discharged home today in stable condition. Discharge diagnoses: 1. Syncopal episode most likely due to vasovagal syncope. 2. 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 3. Coronary artery disease status post stent placement in the , stable. 4. Hypertension and hypertensive cardiovascular disease. 5. Hyperlipidemia. 6. Bradycardia status post pacemaker. 7. Right carotid artery disease of 80% and left 70% followed by Dr. Ashley. 8. 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 9. Gastroesophageal reflux disease. 10. Chronic kidney disease stage III. 11. No heart failure. Discharge plan: Home with [facility] care Impression and plan of care have been directed as dictated by the signing physician. Anneliese Rawls nurse practitioner acting as scribe for signing physician. Patient Condition at Discharge: Good Plan - Discharge Summary Discharge Rx Participant: No New Discharge Prescriptions: New Docusate [Colace] 100 mg PO BID cap Lisinopril [Zestril] 5 mg PO DAILY #30 tab Continue Pantoprazole Sodium 40 mg PO BID@1000,1800 Metoprolol Tartrate [Lopressor] 25 mg PO BID@1000,1800 Finasteride 5 mg PO DAILY@1000 Simvastatin [Zocor] 40 mg PO DAILY@1000 Aspirin 325 mg PO DAILY@1000 Zoledronic Acid [Zometa] 3 mg IV Q28D Discontinued Acetaminophen/Diphenhydramine [Tylenol PM 500-25mg] 2 tab PO HS Hydrochlorothiazide 12.5mg Tab 12.5 mg PO DAILY@1000 Discharge Medication List Finasteride 5 mg PO DAILY@1000 04/12/14 [History] Metoprolol Tartrate [Lopressor] 25 mg PO BID@1000,1800 04/12/14 [History] Pantoprazole Sodium 40 mg PO BID@1000,1800 04/12/14 [History] Simvastatin [Zocor] 40 mg PO DAILY@1000 04/15/17 [History] Aspirin 325 mg PO DAILY@1000 04/27/18 [History] Zoledronic Acid [Zometa] 3 mg IV Q28D 02/01/20 [History] Docusate [Colace] 100 mg PO BID cap 02/03/20 [Rx] Lisinopril [Zestril] 5 mg PO DAILY #30 tab 02/03/20 [Rx] Follow up Appointment(s)/Referral(s): [facility], [NON-STAFF] - Armin Mckeon MD [Primary Care Provider] - 1 Week (Patient to see visiting nurse practitioner. ) Patient Instructions/Handouts: Syncope (DC), Hypotension (DC) Activity/Diet/Wound Care/Special Instructions: Change positions slowly when first sitting up, sit for a couple minutes prior to ambulating to let your blood pressure adjust. Take your blood pressure twice daily and make a log of readings to bring to follow up appointment. Discharge Disposition: HOME WITH HOME HEALTH SERVICES
== END 2020-02-03 13:07 | disposition home health service (06) ==
LOC: EC 13:38 → INTOOBSV 17:17 → 3SCARD 17:17 → UNDODISIN 02-03 13:07
PROVIDERS: ADMIT Internal Medicine; ATTEND Internal Medicine
DX: R55 Syncope and collapse (principal); I13.0 Hypertensive heart and chronic kidney disease with heart failure and stage 1 through stage 4 chronic kidney disease, or unspecified chronic kidney disease; I50.32 Chronic diastolic (congestive) heart failure; C61 Malignant neoplasm of prostate; C79.9 Secondary malignant neoplasm of unspecified site; E78.5 Hyperlipidemia, unspecified; E86.0 Dehydration; G31.9 Degenerative disease of nervous system, unspecified; G89.29 Other chronic pain; I25.10 Atherosclerotic heart disease of native coronary artery without angina pectoris; I25.2 Old myocardial infarction; K21.9 Gastro-esophageal reflux disease without esophagitis; K59.00 Constipation, unspecified; M19.90 Unspecified osteoarthritis, unspecified site; M54.5 Low back pain; N18.3 Chronic kidney disease, stage 3 (moderate); N40.0 Benign prostatic hyperplasia without lower urinary tract symptoms; Z66 Do not resuscitate; Z79.82 Long term (current) use of aspirin; Z79.899 Other long term (current) drug therapy; Z80.0 Family history of malignant neoplasm of digestive organs; Z80.42 Family history of malignant neoplasm of prostate; Z80.8 Family history of malignant neoplasm of other organs or systems; Z82.49 Family history of ischemic heart disease and other diseases of the circulatory system; Z85.21 Personal history of malignant neoplasm of larynx; Z85.46 Personal history of malignant neoplasm of prostate; Z86.73 Personal history of transient ischemic attack (TIA), and cerebral infarction without residual deficits; Z87.891 Personal history of nicotine dependence; Z92.21 Personal history of antineoplastic chemotherapy; Z92.3 Personal history of irradiation; Z95.0 Presence of cardiac pacemaker; Z95.5 Presence of coronary angioplasty implant and graft; Z96.1 Presence of intraocular lens; Z98.42 Cataract extraction status, left eye; Z98.41 Cataract extraction status, right eye; Z97.4 Presence of external hearing-aid
CPT/HCPCS: 96361 ×3; 96372 ×3; 96360; 99285; 36415; 95816; 93005; 97162; 97166; 80053 ×2; 82550; 83735; 84484; 85025 ×2; 85610; 85730; 81003; 71046; 70450; G0378 ×3; S0138 ×2; J1644 ×3

== ENCOUNTER 2020-03-21 12:42 | Emergency (ER) | payer MEDICARE ==
[2020-03-21 12:52] VITALS: RESP 18; TEMP 97.5
[2020-03-21] MEDS ORDERED: SODIUM CHLORIDE 0.9% 1,000 ML IV STA (12:53)
[2020-03-21] MEDS ORDERED: ONDANSETRON 4 MG/2 ML VIAL IVP STA (12:54)
--- NOTE | 2020-03-21 12:57 | ED ---
General Adult HPI - General Chief complaint: Altered Mental Status Stated complaint: altered mental status Time Seen by Provider: 03/21/20 12:47 Source: patient, EMS, RN notes reviewed Mode of arrival: EMS Limitations: altered mental status - History of Present Illness Initial comments: Patient is a pleasant 89-year-old male presenting to the emergency Department with complaints of reported altered mental status. Patient denies any complaints and states he feels fine. Patient reportedly vomited twice. Patient denies any confusion. Patient denies any pain or nausea. Patient reportedly has history of similar symptoms previously associated with dehydration. Patient is unclear if he has been eating or drinking well recently. - Related Data Home Medications Medication Instructions Recorded Confirmed Finasteride 5 mg PO DAILY@1000 04/12/14 03/21/20 Metoprolol Tartrate [Lopressor] 25 mg PO BID@1000,1800 04/12/14 03/21/20 Pantoprazole Sodium 40 mg PO BID@1000,1800 04/12/14 03/21/20 Simvastatin [Zocor] 40 mg PO DAILY@1000 04/15/17 03/21/20 Aspirin 325 mg PO DAILY@1000 04/27/18 03/21/20 Zoledronic Acid [Zometa] 3 mg IV Q28D 02/01/20 03/21/20 Venlafaxine HCl [Effexor] 25 mg PO DAILY 03/21/20 03/21/20 Previous Rx's Medication Instructions Recorded Lisinopril [Zestril] 5 mg PO DAILY #30 tab 02/03/20 Allergies Allergy/AdvReac Type Severity Reaction Status Date / Time No Known Allergies Allergy Verified 03/21/20 13:41 Review of Systems ROS Statement: Those systems with pertinent positive or pertinent negative responses have been documented in the HPI. ROS Other: All systems not noted in ROS Statement are negative. Constitutional: Denies: fever Eyes: Denies: eye pain ENT: Denies: ear pain Respiratory: Denies: cough Cardiovascular: Denies: chest pain Endocrine: Denies: fatigue Gastrointestinal: Denies: abdominal pain Genitourinary: Denies: dysuria Musculoskeletal: Denies: back pain Skin: Denies: rash Neurological: Reports: as per HPI, confusion. 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 Prostate and bone CA Last Myocardial Infarction Date:: possible NH in 1991 during cardiac cath. History of Any Multi-Drug Resistant Organisms: None Reported Past Surgical History: Back Surgery Additional Past Surgical History / Comment(s): 2012 pacemaker, PCI with stents 1991 at [facility], suspension microlarygoscopy, lung biopsy at [facility], colonoscopy, L elbow surgery, lumbar surgery x3, bilateral cataract removals/lens implants. Past Anesthesia/Blood Transfusion Reactions: No Reported Reaction Additional Past Anesthesia/Blood Transfusion Reaction / Comment(s): pt is independant no assistive devices lives in a single level home no steps. no o utside services recieved. no past service. 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 Date of Last Stent Placement:: 1991 Past Psychological History: No Psychological Hx Reported Smoking Status: Former smoker Past Alcohol Use History: None Reported Past Drug Use History: None Reported - Past Family History Mother Family Medical History: No Reported History Additional Family Medical History / Comment(s): was killed in accident Father Family Medical History: Cancer Additional Family Medical History / Comment(s): "heart problems" and brain cancer. Father had history of myocardial infarction and pacemaker placement. Brother(s) Additional Family Medical History / Comment(s): Patient does not have any brothers or sisters. Daughter(s) Additional Family Medical History / Comment(s): Patient has 2 sons and 2 daughters. One daughter has coronary artery disease. Son(s) Family Medical History: Cancer General Exam Limitations: no limitations General appearance: alert, in no apparent distress Head exam: Present: normocephalic Eye exam: Present: normal appearance, PERRL, EOMI ENT exam: Present: normal oropharynx Neck exam: Present: normal inspection Respiratory exam: Present: normal lung sounds bilaterally Cardiovascular Exam: Present: regular rate, normal rhythm GI/Abdominal exam: Present: soft. Absent: tenderness Extremities exam: Present: normal inspection Neurological exam: Present: alert, CN II-XII intact. Absent: motor sensory d eficit Expanded Neurological exam: Present: protecting the airway Patient oriented to: Present: person, place. Absent: time Speech: Present: fluid speech Motor strength exam: RUE: 5, LUE: 5, RLE: 5, LLE: 5 Eye Response: (4) open spontaneously Motor Response: (6) obeys commands Verbal Response: (4) confused conversation Psychiatric exam: Present: normal affect, normal mood Skin exam: Present: normal color Course Vital Signs 03/21/20 03/21/20 03/21/20 12:43 13:17 13:46 Temperature 97.5 F L Pulse Rate 68 60 88 Respiratory 18 18 18 Rate Blood Pressure 154/79 147/69 144/85 O2 Sat by Pulse 97 97 96 Oximetry 03/21/20 14:34 Temperature Pulse Rate 64 Respiratory 18 Rate Blood Pressure 144/83 O2 Sat by Pulse 97 Oximetry EKG Findings - EKG Comments: EKG Findings:: Paced rhythm with a rate of 60. QRS 200. QT 546. QTc 546. Left axis. Right bundle branch block. Wide-complex QRS. LVH with repolarization change. Medical Decision Making - Medical Decision Making Patient reevaluated and resting comfortably in bed. There is question if patient has syncopal episode with defecation. Patient was admitted to the hospital for syncopal episode several months ago and evaluated at that time. Case was discussed in detail with Dr. Hoyos who is familiar with this patient and okay with discharge. Family is also comfortable with discharge and does not fe el call needs to be placed to admitting doctor, when offered. - Lab Data Result diagrams: 03/21/20 13:30 03/21/20 13:30 Lab Results 03/21/20 03/21/20 03/21/20 Range/Units 12:56 13:10 13:30 WBC 8.8 (3.8-10.6) k/uL RBC 4.26 L (4.30-5.90) m/uL Hgb 13.6 (13.0-17.5) gm/dL Hct 40.6 (39.0-53.0) % MCV 95.2 (80.0-100.0) fL MCH 31.9 (25.0-35.0) pg MCHC 33.5 (31.0-37.0) g/dL RDW 13.6 (11.5-15.5) % Plt Count 323 (150-450) k/uL Neutrophils % 88 % Lymphocytes % 6 % Monocytes % 3 % Eosinophils % 2 % Basophils % 1 % Neutrophils # 7.7 (1.3-7.7) k/uL Lymphocytes # 0.5 L (1.0-4.8) k/uL Monocytes # 0.3 (0-1.0) k/uL Eosinophils # 0.1 (0-0.7) k/uL Basophils # 0.0 (0-0.2) k/uL PT (9.0-12.0) sec INR (<1.2) APTT (22.0-30.0) sec Sodium (137-145) mmol/L Potassium (3.5-5.1) mmol/L Chloride (98-107) mmol/L Carbon Dioxide (22-30) mmol/L Anion Gap mmol/L BUN (9-20) mg/dL Creatinine (0.66-1.25) mg/dL Est GFR (CKD-EPI)AfAm (>60 ml/min/1.73 sqM) Est GFR (CKD-EPI)NonAf (>60 ml/min/1.73 sqM) Glucose (74-99) mg/dL POC Glucose (mg/dL) 118 H (75-99) mg/dL POC Glu Margin Clerk ID Zo Garcia Calcium (8.4-10.2) mg/dL Total Bilirubin (0.2-1.3) mg/dL AST (17-59) U/L ALT (4-49) U/L Alkaline Phosphatase (38-126) U/L Troponin I (0.000-0.034) ng/mL Total Protein (6.3-8.2) g/dL Albumin (3.5-5.0) g/dL Urine Color Yellow Urine Appearance Clear (Clear) Urine pH 5.5 (5.0-8.0) Ur Specific [place] 1.019 (1.001-1.035) Urine Protein 1+ H (Negative) Urine Glucose (UA) Negative (Negative) Urine Ketones Negative (Negative) Urine Blood Trace H (Negative) Urine Nitrite Negative (Negative) Urine Bilirubin Negative (Negative) Urine Urobilinogen <2.0 (<2.0) mg/dL Ur Leukocyte Esterase Negative (Negative) Urine RBC 3 (0-5) /hpf Urine WBC 4 (0-5) /hpf Ur Squamous Epith Cells <1 (0-4) /hpf Urine Bacteria Rare H (None) /hpf Urine Mucus Occasional H (None) /hpf Urine Opiates Screen Not Detected (NotDetected) Ur Oxycodone Screen Not Detected (NotDetected) Urine Methadone Screen Not Detected (NotDetected) Ur Propoxyphene Screen Not Detected (NotDetected) Ur Barbiturates Screen Not Detected (NotDetected) U Tricyclic Antidepress Not Detected (NotDetected) Ur Phencyclidine Scrn Not Detected (NotDetected) Ur Amphetamines Screen Not Detected (NotDetected) U Methamphetamines Scrn Not Detected (NotDetected) U Benzodiazepines Scrn Not Detected (NotDetected) Urine Cocaine Screen Not Detected (NotDetected) U Marijuana (THC) Screen Not Detected (NotDetected) Serum Alcohol mg/dL 03/21/20 03/21/20 03/21/20 Range/Units 13:30 13:30 13:30 WBC (3.8-10.6) k/uL RBC (4.30-5.90) m/uL Hgb (13.0-17.5) gm/dL Hct (39.0-53.0) % MCV (80.0-100.0) fL MCH (25.0-35.0) pg MCHC (31.0-37.0) g/dL RDW (11.5-15.5) % Plt Count (150-450) k/uL Neutrophils % % Lymphocytes % % Monocytes % % Eosinophils % % Basophils % % Neutrophils # (1.3-7.7) k/uL Lymphocytes # (1.0-4.8) k/uL Monocytes # (0-1.0) k/uL Eosinophils # (0-0.7) k/uL Basophils # (0-0.2) k/uL PT 9.7 (9.0-12.0) sec INR 0.9 (<1.2) APTT 21.3 L (22.0-30.0) sec Sodium 136 L (137-145) mmol/L Potassium 4.2 (3.5-5.1) mmol/L Chloride 103 (98-107) mmol/L Carbon Dioxide 26 (22-30) mmol/L Anion Gap 7 mmol/L BUN 21 H (9-20) mg/dL Creatinine 1.71 H (0.66-1.25) mg/dL Est GFR (CKD-EPI)AfAm 41 (>60 ml/min/1.73 sqM) Est GFR (CKD-EPI)NonAf 35 (>60 ml/min/1.73 sqM) Glucose 124 H (74-99) mg/dL POC Glucose (mg/dL) (75-99) mg/dL POC Glu Margin Clerk ID Calcium 9.1 (8.4-10.2) mg/dL Total Bilirubin 0.4 (0.2-1.3) mg/dL AST 23 (17-59) U/L ALT 12 (4-49) U/L Alkaline Phosphatase 55 (38-126) U/L Troponin I <0.012 (0.000-0.034) ng/mL Total Protein 7.0 (6.3-8.2) g/dL Albumin 4.3 (3.5-5.0) g/dL Urine Color Urine Appearance (Clear) Urine pH (5.0-8.0) Ur Specific [place] (1.001-1.035) Urine Protein (Negative) Urine Glucose (UA) (Negative) Urine Ketones (Negative) Urine Blood (Negative) Urine Nitrite (Negative) Urine Bilirubin (Negative) Urine Urobilinogen (<2.0) mg/dL Ur Leukocyte Esterase (Negative) Urine RBC (0-5) /hpf Urine WBC (0-5) /hpf Ur Squamous Epith Cells (0-4) /hpf Urine Bacteria (None) /hpf Urine Mucus (None) /hpf Urine Opiates Screen (NotDetected) Ur Oxycodone Screen (NotDetected) Urine Methadone Screen (NotDetected) Ur Propoxyphene Screen (NotDetected) Ur Barbiturates Screen (NotDetected) U Tricyclic Antidepress (NotDetected) Ur Phencyclidine Scrn (NotDetected) Ur Amphetamines Screen (NotDetected) U Methamphetamines Scrn (NotDetected) U Benzodiazepines Scrn (NotDetected) Urine Cocaine Screen (NotDetected) U Marijuana (THC) Screen (NotDetected) Serum Alcohol <10 mg/dL - Radiology Data Radiology results: report reviewed (Computed tomography scan of the brain shows no acute intercranial hemorrhage or shift. Atrophy. Chronic small vessel disease.), image reviewed (Chest x-ray shows no acute process) Disposition Clinical Impression: Syncope Disposition: HOME SELF-CARE Condition: Stable Instructions (If sedation given, give patient instructions): Syncope (ED), Altered Mental Status (ED) Additional Instructions: Please follow-up with primary care physician in the next day or 2 for recheck. Please also follow-up with Dr. Damon. Return for passing out, weakness, change in mental status, persistent vomiting, worsening or changing symptoms or other concerns. Is patient prescribed a controlled substance at d/c from ED?: No Referrals: Armin Mckeon MD [Primary Care Provider] - 1-2 days Joe Damon MD [STAFF PHYSICIAN] - 1-2 days Time of Disposition: 15:14
[2020-03-21 12:59] LABS: Glucose,Whole Blood 118 mg/dL (75-99)
[2020-03-21 13:32] LABS: Appearance,Urine Clear (Clear); Bacteria,Urine Rare /hpf; Bilirubin,Urine Negative (Negative); Blood,Urine Trace (Negative); Color,Urine Yellow; Glucose,Urine (UA) Negative (Negative); Ketones,Urine Negative (Negative); Leukocyte Esterase,Urine Negative (Negative); Mucus,Urine Occasional /hpf; Nitrite,Urine Negative (Negative); PH, Urine 5.5 (5.0-8.0); Protein,Urine 1+ (Negative); RBC,Urine 3 /hpf (0-5); Specific Gravity,Urine 1.019 (1.001-1.035); Squamous Epithelial Cell,Urine <1 /hpf (0-4); Urobilinogen,Urine <2.0 mg/dL (<2.0); WBC,Urine 4 /hpf (0-5)
[2020-03-21 13:40] LABS: Amphetamine Screen,Urine Not Detected (NotDetected); Barbiturate Screen,Urine Not Detected (NotDetected); Benzodiazepines Screen,Urine Not Detected (NotDetected); Cocaine Screen,Urine Not Detected (NotDetected); Methadone Screen, Urine Not Detected (NotDetected); Opiate Screen,Urine Not Detected (NotDetected); Oxycodone Screen, Urine Not Detected (NotDetected); Phencyclidine Screen,Urine Not Detected (NotDetected); Tricyclic Antidepressant,Urine Not Detected (NotDetected); Urn Cannabinoid Scrn Not Detected (NotDetected)
[2020-03-21 13:43] LABS: Basophils % (A) 1 %; Eosinophils # (A) 0.1 k/uL (0-0.7); Eosinophils % (A) 2 %; HCT 40.6 % (39.0-53.0); HGB 13.6 gm/dL (13.0-17.5); Lymphocytes # (A) 0.5 k/uL (1.0-4.8); Lymphocytes % (A) 6 %; MCH 31.9 pg (25.0-35.0); MCHC 33.5 g/dL (31.0-37.0); MCV 95.2 fL (80.0-100.0); Mean Platelet Volume 7.4; Monocytes # (A) 0.3 k/uL (0-1.0); Monocytes % (A) 3 %; Neutrophils # (A) 7.7 k/uL (1.3-7.7); Neutrophils % (A) 88 %; Platelet Count 323 k/uL (150-450); RBC 4.26 m/uL (4.30-5.90); RDW 13.6 % (11.5-15.5); WBC 8.8 k/uL (3.8-10.6)
--- NOTE | 2020-03-21 13:45 | XR ---
EXAMINATION TYPE: XR chest 2V DATE OF EXAM: 03/21/2020 COMPARISON: Chest x-ray February 01, 2020. CT chest December 24, 2018. HISTORY: Altered mental status and weakness. TECHNIQUE: Frontal and lateral views of the chest are obtained. FINDINGS: There is chronic parenchymal change without suspicious focal air space opacity, pleural effusion, or pneumothorax seen. The cardiac silhouette size is stab le and upper limits of normal with dual-lead pacemaker redemonstrated. Overlying EKG leads are now pr esent. The osseous structures are intact. IMPRESSION: Chronic changes without new acute process.
[2020-03-21 13:58] LABS: ALT 12 U/L (4-49); AST 23 U/L (17-59); African American GFR (CKD) 41 (>60 ml/min/1.73 sqM); Albumin 4.3 g/dL (3.5-5.0); Alcohol <10 mg/dL; Alkaline Phosphatase 55 U/L (38-126); Anion Gap 7 mmol/L; Blood Urea Nitrogen 21 mg/dL (9-20); Calcium 9.1 mg/dL (8.4-10.2); Carbon Dioxide 26 mmol/L (22-30); Chloride 103 mmol/L (98-107); Glucose 124 mg/dL (74-99); Non-African American GFR(CKD) 35 (>60 ml/min/1.73 sqM); Potassium 4.2 mmol/L (3.5-5.1); Sodium 136 mmol/L (137-145); Total Bilirubin 0.4 mg/dL (0.2-1.3)
[2020-03-21 14:00] LABS: INR 0.9 (<1.2); Prothrombin Time 9.7 sec (9.0-12.0)
[2020-03-21 14:10] LABS: Partial Thromboplastin Time 21.3 sec (22.0-30.0)
--- NOTE | 2020-03-21 14:19 | CT ---
EXAMINATION TYPE: CT brain wo con DATE OF EXAM: 03/21/2020 HISTORY: Altered mental status and weakness CT DLP: 1101.6 mGycm. Automated Exposure Control for Dose Reduction was Utilized. TECHNIQUE: CT scan of the head is performed without contrast. COMPARISON: CT brain February 01, 2020. FINDINGS: There is no acute intracranial hemorrhage or midline shift identified. There is diffuse v entricular and sulcal prominence consistent with diffuse age-related cerebral atrophy. There is low- attenuation in the periventricular white matter consistent with chronic small vessel ischemic change. Vascular calcification distal internal carotid and vertebral arteries bilaterally redemonstrated. S cleral calcification right globe again seen medially. Paranasal sinuses remain clear. IMPRESSION: No acute intracranial hemorrhage or midline shift. There is mild to moderate diffuse ag e-related cerebral atrophy and chronic small vessel ischemic change redemonstrated. No significant c hange from prior.
[2020-03-21] MEDS ORDERED: ACETAMINOPHEN TAB 500 MG TAB PO STA (15:12)
[2020-03-21 15:25] VITALS: BP 156/86; PULSE 65
== END 2020-03-21 15:33 | disposition home or self-care (01) ==
LOC: EC 12:42
DX: R55 Syncope and collapse (principal); I11.0 Hypertensive heart disease with heart failure; I50.9 Heart failure, unspecified; E78.5 Hyperlipidemia, unspecified; K21.9 Gastro-esophageal reflux disease without esophagitis; N40.0 Benign prostatic hyperplasia without lower urinary tract symptoms; I25.2 Old myocardial infarction; Z79.82 Long term (current) use of aspirin; Z79.899 Other long term (current) drug therapy; Z85.21 Personal history of malignant neoplasm of larynx; Z95.0 Presence of cardiac pacemaker; Z95.5 Presence of coronary angioplasty implant and graft; Z92.21 Personal history of antineoplastic chemotherapy; Z92.3 Personal history of irradiation; Z86.73 Personal history of transient ischemic attack (TIA), and cerebral infarction without residual deficits; Z85.46 Personal history of malignant neoplasm of prostate; Z85.830 Personal history of malignant neoplasm of bone; Z87.891 Personal history of nicotine dependence; Z82.49 Family history of ischemic heart disease and other diseases of the circulatory system
CPT/HCPCS: 36415; 93005; 80053; 84484; 85025; 85610; 85730; 81001; 80306; 71046; 70450; 99285; 96360; 96361; G0480; 80320

== ENCOUNTER → 2020-08-03 | Outpatient (CLI) | payer MEDICARE ==
--- NOTE | 2020-08-03 13:04 | US ---
EXAMINATION TYPE: US venous doppler duplex LE LT DATE OF EXAM: 08/03/2020 11:12 AM COMPARISON: NONE CLINICAL HISTORY: 89-year-old male R22.42 swelling left lower limb,Z03.89. Mild swelling in left leg, no history of DVT SIDE PERFORMED: Left TECHNIQUE: The lower extremity deep venous system is examined utilizing real time linear array sonog teerza with graded compression, doppler sonography and color-flow sonography. FINDINGS: VESSELS IMAGED: External Iliac Vein (EIV) Common Femoral Vein Deep Femoral Vein Greater Saphenous Vein * Femoral Vein Popliteal Vein Small Saphenous Vein * Proximal Calf Veins (* superficial vessels) Left Leg: Negative for DVT IMPRESSION: No evidence for DVT within the left lower extremity imaged from the groin to the upper calf.
--- NOTE | 2020-08-03 14:14 | CT ---
EXAMINATION TYPE: CT lumbar spine wo con DATE OF EXAM: 08/03/2020 11:30 AM COMPARISON: Nuclear medicine bone scan 02/21/2019. CT abdomen pelvis 12/24/2018. HISTORY: Trouble walking, observe for METS, prostate cancer CT DLP: 611.58 mGycm Automated exposure control for dose reduction was used. Unenhanced CT of the lumbar spine was performed. Bone and soft tissue window settings are submitted as well as coronal and sagittal reconstructions. 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 No acute fracture or dislocation. Vertebral body heights are normal. There is multilevel disc space huong rowing worst at L5-S1 and L2-L3. Multilevel osteophytic spurring. There is disc bulging and facet arthropathy contributing to mild canal stenosis at L1-L2, moderate to severe canal stenosis at L3-L4. At L5-S1 there is mild right and severe left neural foramina narrowi ng. At L4-L5 there is mild left neural foramina narrowing. Other: Small hiatal hernia. Infrarenal abdominal aortic ectasia measuring 2.7 cm. 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 IMPRESSION: 1. Diffuse osteoblastic metastatic disease markedly increased from 12/24/2018 CT comparison. 2. Degenerative disc disease and facet arthropathy contribute to varying degrees of canal stenosis an d neural foramina narrowing as above. There is moderate to severe canal stenosis at L3-L4. 3. 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
--- NOTE | 2020-08-03 14:35 | CT ---
EXAMINATION TYPE: CT sacrum wo con, CT hip LT wo con DATE OF EXAM: 08/03/2020 COMPARISON: Nuclear medicine bone scan 02/21/2019. CT abdomen pelvis 12/24/2018. HISTORY: Trouble walking, observe for METS, prostate cancer CT DLP: 319.95 (accession [id number]), 331.55 (accession [id number]) mGycm Automated exposure control for dose reduction was used. FINDINGS: There is no acute fracture or dislocation of the sacrum or left hip. There is marked diffuse osteobla stic metastatic disease. Degenerative changes of the left hip with joint space narrowing and degenera tive spurring. The sacroiliac joints are symmetric bilaterally. The visualized pubic symphysis is now widened. There are bilateral common iliac artery aneurysms measuring 1.7 cm. Prostatic calcifications are seen . IMPRESSION: 1. Marked diffuse osteoblastic metastatic disease. 2. No acute fracture or dislocation of the sacrum or left hip.
== END | disposition home or self-care (01) ==
LOC: RADCTMAIN 09:09
PROVIDERS: ATTEND Internal Medicine Hematology & Oncology
DX: C79.51 Secondary malignant neoplasm of bone (principal); M48.061 Spinal stenosis, lumbar region without neurogenic claudication; M47.816 Spondylosis without myelopathy or radiculopathy, lumbar region; M51.36 Other intervertebral disc degeneration, lumbar region; I72.3 Aneurysm of iliac artery; C61 Malignant neoplasm of prostate
CPT/HCPCS: 36415; 72131; 72192; 82565; 84520

== ENCOUNTER 2021-09-09 08:01 | Day surgery (SDC) | payer MEDICARE ==
[2021-09-06 10:13] VITALS: BMI 27.0
[~2021-09-09 08:01] MED LIST: SODIUM CHLORIDE 0.9% 1,000 ML IV SCH; ceFAZolin 1 GM in SODIUM CHLORIDE 0.9% 250 ML IRRIGATION PRN
[2021-09-09 08:41] VITALS: RESP 18; TEMP 97
[2021-09-09] MEDS ORDERED: fentaNYL (PF) 50 MCG/ML 2 ML AMP ONE (09:08)
[2021-09-09] MEDS ORDERED: LIDOCAINE 1% INJ 10MG/ML (20 ML MDV) ONE (09:08)
[2021-09-09] MEDS ORDERED: fentaNYL (PF) 50 MCG/ML 2 ML AMP IV ONE (09:20)
[2021-09-09] MEDS ORDERED: LIDOCAINE 1% INJ 10MG/ML (20 ML MDV) SQ ONE (09:20)
[2021-09-09] MEDS ORDERED: MIDAZOLAM 2 MG/2 ML VIAL IV ONE (09:20)
[2021-09-09] MEDS ORDERED: ACETAMINOPHEN TAB 325 MG TAB PO PRN (09:46)
--- NOTE | 2021-09-09 09:56 | P.PCN ---
Date of Procedure: 09/09/21 Preoperative Diagnosis: Battery depletion Postoperative Diagnosis: The same Procedure(s) Performed: Generator change Description of Procedure: HISTORY: This is a 89-year-old gentleman with history of permanent pacemaker implantation was noted to have reached replacement time. Patient is brought in for elective replacement of battery CONSENT: I have discussed the risks and benefits as related to the above mentioned procedure and both sedation/analgesia as well as necessary blood product administration. The patient has indicated understanding and acceptance of the risks of the procedure discussed. PROCEDURE: Patient was brought to the lab in a fasting state. Patient was given IV Versed and fentanyl for sedation. The skin over the existing pulse generator was infiltrated with lidocaine. An incision was made in the skin and was deepened until the pectoral fascia was exposed. Hemostasis was obtained. The existing pulse generator was pulled out of the pocket. The leads were disconnected and were checked for thresholds. Conscious Sedation: Versed 0.5mg Fentanyl 12.5 g Duration 18minutes THRESHOLDS: ATRIAL: The minimum patient threshold is 0.5 V at pulse width of 0.5 ms. The impedance is 340 ohms P-wave: 2.7 mV VENTRICULAR: The minimal patient threshold was 1.5 V at a pulse width of 0.5. The impedance is 360 R-wave: 5.5 mV THE LEADS: ATRIAL: This is manufactured by [employer]. The model number is 1688TC./52 and the serial number is [id number], implanted in 2006 VENTRICULAR: This is manufactured by [employer]. The model number is 1688TC-58 and the serial number is [id number]. THE EXPLANTED DEVICE: This is manufactured by [employer]. The model number is [employer] 2210 and the serial number is [id number] THE NEW DEVICE: This is manufactured by [employer] at the model number is PM [id number] and the serial number is [id number] The leads were then connected to a new pulse generator. Pacemaker seems to function normally. The pocket was irrigated with antibiotics. The pocket was closed in the usual fashion. Pectoral fascia was closed with 2-0 Prolene, the subcutaneous tissue was closed with 3-0 Prolene and the skin was closed with 4-0 Prolene. Patient tolerated the procedure well . Patient will be monitored on the telemetry unit for 2-3 hours. If stable patient be discharged home later today. PLAN: Patient will monitor for the next few hours. If stable patient be discharged home to continue home medication except holding aspirin for 3 days. Will also be given prophylactic antibiotics. Patient will follow the usual postprocedure instructions. FALLOW UP: With Dr. Solorzano in 1 week.
[2021-09-09 09:58] LABS: Calcium 9.5 mg/dL (8.4-10.2); Potassium 4.9 mmol/L (3.5-5.1)
[2021-09-09 11:59] VITALS: PULSE 60
[2021-09-09 13:24] VITALS: BP 171/77
== END 2021-09-09 13:26 | disposition home or self-care (01) ==
LOC: CATHEP 08:01
PROVIDERS: ATTEND Internal Medicine Cardiovascular Disease
DX: T82.111A Breakdown (mechanical) of cardiac pulse generator (battery), initial encounter (principal); Z95.0 Presence of cardiac pacemaker; Z20.822 Contact with and (suspected) exposure to COVID-19
CPT/HCPCS: 33228; 80048; 87635; C1785; J2250; J0690; J2001; J3010